=== PATIENT | female | born 1935 | race Caucasian/White ===

== ENCOUNTER → 2016-09-07 | Outpatient (CLI) | payer MEDICARE, MEDICAID ==
[~2016-09-07] MED LIST: ASPIRIN 325MG325 MG PO; DONEPEZIL 10MG10 MG PO; KEFLEX 500MG.500 MG PO; LEXAPRO 10 MG T10 MG PO; LISINOPRIL20 MG PO; NORCO 325 MG-51 TAB PO; NOVOLIN 70/30 710 ML SC; NOVOLIN 70/30 PE3 ML SC; PRAVACHOL10 MG PO
--- NOTE | 2016-09-07 15:07 | RADIOLOGY REPORT PS360 ---
PROCEDURE: 2-D M-mode and color Doppler study INDICATIONS FOR THE TEST: Chest pain COPD Heart Murmur Tobacco Smoking Palpitations Fatigue Syncope Edema+ Hypertension+Diabetes Mellitus+ Rheumatic Fever SOB+MILLER+Obesity Hyperlipidemia+ Family History HD Additional History CHF PATIENT INFORMATION HEIGHT: 61 WEIGHT: 160 GENDER: Female B/P: 164/84 2-D/M-MODE INTERPRETATION: 2-D MEASUREMENTS OBSERVED VALUES IN CMS Right Ventricular Dimension (RVDd) 2.0 Interventricular Septum (Thickness)(IVsd) 0.9 Left Ventricular Internal Dimensions(LVIDd) 4.6 Left Ventricular Posterior Wall (Thickness)(LVPWd) 0.8 Aortic Root 2.0 Aortic Cusp Separation 1.9 Left Atrial Dimensions (LAD) 3.4 2D 1. Left atrium is qualitatively moderately enlarged, left ventricle is normal size, there is no concentric left ventricular hypertrophy present, visually estimated ejection fraction 55% with no obvious regional wall motion abnormality. 2. The right atrium and right ventricle are mildly enlarged with normal contractility. 3. The aortic valve is minimally thickened and fibrosed consistent with mild aortic sclerosis. 4. The mitral valve has mitral annular calcification, there is no mitral stenosis. 5. The pulmonic valve is not well visualized. 6. No significant pericardial effusion noted. 7. The tricuspid valve restructure normal. DOPPLER INTERROGATION: Doppler interrogation of the aortic mitral and tricuspid valve reveals presence of mild mitral and tricuspid regurgitation, calculated right ventricular systolic pressure 40 mmHg consistent with mild pulmonary hypertension, grade 1 diastolic dysfunction seen with tissue Doppler evidence of raised left atrial pressure. CONCLUSION: 1. Biatrial enlargement, normal left ventricular size, visually estimated to fraction 55% no obvious regional wall motion abnormality, grade 1 diastolic dysfunction seen with tissue Doppler evidence of raised left atrial pressure. 2. Mild mitral and tricuspid regurgitation, calculated right ventricular systolic pressure 40 mmHg consistent with mild pulmonary hypertension. 3. No significant pericardial effusion noted.
== END ==
LOC: RT 13:30
DX: R60.9 Edema, unspecified (principal); I50.32 Chronic diastolic (congestive) heart failure; E11.9 Type 2 diabetes mellitus without complications; E78.5 Hyperlipidemia, unspecified

== ENCOUNTER → 2017-02-18 | Outpatient (CLI) | payer MEDICARE, MEDICAID ==
[~2017-02-18] MED LIST changes: +GABAPENTIN 100100 MG PO; +LASIX 20MG. TAB20 MG PO; +LASIX 40MG. TAB40 MG PO; +LOSARTAN POTASS50 MG PO; +SPIRONOLACTONE25 MG NG; +TESSALON PERLE100 M1 PO; +TYLENOL WITH CO1 TA1 PO; +ZITHROMAX Z-PA250 M2 PO
[2017-02-18 09:27] LABS: LYMPH # 2.5 K/mm3 (0.7-4.5); LYMPH % 28.7 % (10-50.0)
[2017-02-18 09:40] LABS: BUN 26 mg/dL (7-18)
[2017-02-18 09:42] LABS: GFR (ESTIMATED) 48 ML/MIN (59-)
--- NOTE | 2017-02-18 11:57 | RADIOLOGY REPORT PS360 ---
CHEST(2 VIEWS-NOT PORTABLE) HISTORY: Follow-up biopsy, lung mass POST CT CHEST BX ORDERING PHYSICIAN: Bret Andrade MD PATIENT AGE: 82 years COMPARISON: 01/15/2017 FINDINGS: Expiration PA and lateral views of the chest are obtained. No evidence of pneumothorax. Patient has known bilateral pulmonary nodules which are below limits of resolution on the radiograph. IMPRESSION: No evidence of pneumothorax status post lung biopsy
--- NOTE | 2017-02-18 16:56 | RADIOLOGY REPORT PS360 ---
CHEST(2 VIEWS-NOT PORTABLE) HISTORY: Follow-up lung biopsy POST LUNG BX ORDERING PHYSICIAN: Bret Andrade MD PATIENT AGE: 82 years COMPARISON: Same day FINDINGS: Expiration PA and lateral view of the chest show no evidence of pneumothorax. Vascular crowding is present in the lung bases. The heart size is unremarkable. IMPRESSION: No acute finding, no evidence of pneumothorax. Patient has known multiple pulmonary nodules which are below limits of resolution on this chest radiograph
--- NOTE | 2017-02-18 18:17 | RADIOLOGY REPORT PS360 ---
CT BIOPSY, CT CHEST W/O CONTRAST CLINICAL INDICATION: Lung masses LUNG BIOPSY ORDERING PHYSICIAN: Bret Andrade MD PATIENT AGE: 82 years COMPARISON: 01/28/[address] Prebiopsy chest CT patient is placed in the prone position and unenhanced chest CT performed. Multiple pulmonary nodules are once again noted. Specifically, the lesion in the left lung bases present at 3.2 x 1.8 cm. Patient was not able to consistently inspire and hold her breath. The lesion is persistently deep to the lateral rib. There was also bowel interposition and the spleen is immediately adjacent to the nodule. TECHNIQUE: Using standard aseptic technique, local anesthesia was obtained using buffered lidocaine. Multiple attempts were made to place the needle into the lesion. The difference in the patient's breathing and the fact the lesion was persistently behind the rib and adjacent to the colon and spleen made needle positioning very difficult. On the last attempt there was felt that the needle was in the periphery of the lesion. Fine-needle aspiration was obtained. No further attempts were made. Specimens given to cytology. No immediate complications. Post biopsy images show no evidence of pneumothorax or pneumoperitoneum. Immediate and delayed radiographs show no evidence of pneumothorax. Cytology: pending IMPRESSION: Uneventful fine needle aspiration of left lower lobe mass. Please see above for detail. Cytology is pending
== END ==
LOC: RAD 09:15 → EDSTATUS 09:45 → RAD 09:45
PROVIDERS: Family Medicine
PROC: 0B9L3ZX Drainage of Left Lung, Percutaneous Approach, Diagnostic (ICD-10-PCS; principal; 2017-02-18)
DX: D38.1 Neoplasm of uncertain behavior of trachea, bronchus and lung (principal); R91.8 Other nonspecific abnormal finding of lung field

== ENCOUNTER 2017-04-25 23:42 | Emergency (ER) | payer MEDICARE, MEDICAID ==
[~2017-04-25] VITALS: Ht 154.9 cm; Wt 69.9 kg
--- OUTSIDE RECORDS SUMMARY | 2017-04-26 00:35 | External Medical Summary Rpt | CCD ---
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 TYPE SIDE EQUIPME EQUIPME RAIL W/MATTRSS HOS BED E0260 ALEC ALEC SEMI-ELEC 6 HOME HOME W/ANY MEDICAL MEDICAL TYPE SIDE EQUIPME EQUIPME RAIL W/[place] [address] [place] [facility] HEAD/BRAI 6 MEDICAL N W/O IMAGING CONTRAST ASS MATERIAL RADIOLOGI 54695 [place] [facility] C 6 MEDICAL EXAMINATI IMAGING ON PELVIS ASS 1/2 VIEWS SIMPLE 20250 PATI THOMPSON REPAIR 6 PHYSICIAN NORA SCALP/NEC S, PLLC K/AX/BARRY T/TRUNK 2.5CM/< TDAP 51293 CHINO MAGANA VACCINE 7 6 [facility] YRS/> [place] [address] [place] [facility] CERVICAL 6 MEDICAL SPINE W/O IMAGING CONTRAST ASS MATERIAL IM ADM 63002 CHINO MAGANA PRQ ID 6 [facility] SUBQ/IM INC INC NJXS 1 VACCINE HOS BED E0260 ALEC ALEC SEMI-ELEC 6 HOME HOME W/ANY MEDICAL MEDICAL TYPE SIDE EQUIPME EQUIPME RAIL W/MATTRSS BLD GLU A4253 [facility] TEST/REAG 6 [facility] STATES T [facility] BLD SUPPLY SUPPLY GLU MON-50 LANCETS A4259 [place] PER BOX 6 [place] [address] MEDICAL MEDICAL SUPPLY SUPPLY NORMAL A4256 [facility] AND 6 [facility] HIGH MEDICAL MEDICAL CALIBRATO SUPPLY SUPPLY R SOLUTION/ [facility] E0260 ALEC ALEC SEMI-ELEC 6 HOME HOME W/ANY MEDICAL MEDICAL TYPE SIDE EQUIPME EQUIPME RAIL W/MATTRSS HOS BED E0260 ALEC ALEC SEMI-ELEC 6 HOME HOME W/ANY MEDICAL MEDICAL TYPE SIDE EQUIPME EQUIPME RAIL W/MATTRSS LOWER G8404 [facility] EXTREMITY 6 FERMIN AAR NEUROLOGI JOE EXAM PERFORMED &DOC FOOTWEAR G8410 [facility] EVALUATIO 6 FERMIN RAMU N PERFORMED AND DOCUMENTE D BMI DOC G8420 [facility] W/I 6 FERMIN RAMU NORMAL KALEB & NO F/U PLAN REQUIRED PNEUMOCOC 4040F [facility] JOE 6 FERMIN RAMU VACCINE ADMIN RCVD PRIOR DEBRIDEME 95223 [facility] NT NAIL 6 FERMIN RAMU ANY METHOD 6/> MOST 3044F [facility] RECENT 6 FERMIN RAMU HEMOGLOBI N A1C LEVEL < 7.0% CURRENT 1036F [facility] TOBACCO 6 FERMIN RAMU NON-USER CAD CAP COPD PV DM ELIG CLIN G8427 [facility] ATTSTS 6 FERMIN RAMU DOC M REC OBTD UPD/REV PT MEDS INFLUENZA G8482 [facility] 6 FERMIN RAMU IMMUNIZAT ION ADMIN/PRE VIOUSLY RECEIVED HOS BED E0260 ALEC MICHAEL SEMI-ELEC 6 HOME HOME W/ANY MEDICAL MEDICAL TYPE SIDE EQUIPME EQUIPME RAIL W/MATTRSS BLD GLU A4253 UNITED UNITED TEST/REAG 6 STATES STATES T [facility] BLD SUPPLY SUPPLY GLU MON-50 LANCETS A4259 UNITED UNITED PER BOX 6 STATES STATES OF Formerly named [facility] MEDICAL MEDICAL SUPPLY SUPPLY HOME E0607 UNITED UNITED BLOOD 6 STATES STATES GLUCOSE MEDICAL MEDICAL MONITOR SUPPLY SUPPLY HOS BED E0260 ALEC MICHAEL SEMI-ELEC 6 HOME HOME W/ANY MEDICAL MEDICAL TYPE SIDE EQUIPME EQUIPME RAIL W/MATTRSS HOS BED E0260 ALEC MICHAEL SEMI-ELEC 6 HOME HOME W/ANY MEDICAL MEDICAL TYPE SIDE EQUIPME EQUIPME RAIL W/MATTRSS HEMOGLOBI 81653 A C TASHA ELPIDIO N 6 MARTIN VIEYRA GLYCOSYLA PSC COLIN A1C RADIOLOGI 94218 [facility] [place] [facility]UMTA[facility] C 6 RADIOLOGY RHO EXAMINATI ON TIBIA & FIBULA 2 VIEWS RADIOLOGI 06469 [facility] [place] MUMTAZ C 6 RADIOLOGY RHO EXAMINATI ON FEMUR MINIMUM 2 VIEWS TRANS R0075 SYMPHONY SYMPHONY PRTBL 6 MOBILEX MOBILEX XRAY EQP&PERS DK/NRS DK-TRIP> 1 PT RADIOLOGI 18478 SYMPHONY SYMPHONY C 6 MOBILEX MOBILEX EXAMINATI ON KNEE 1/2 VIEWS SET-UP Q0092 SYMPHONY SYMPHONY PORTABLE 6 MOBILEX MOBILEX X-RAY EQUIPMENT SBSQ 53591 [facility] CARE/DAY MEDI NEW PROBLEM 25 MIN TRANS R0070 SYMPHONY SYMPHONY PRTBL 6 MOBILEX MOBILEX X-RAY EQP&PERS DK/NRS DK-TRIP 1 PT RADEX HIP 21515 SYMPHONY SYMPHONY 6 MOBILEX MOBILEX UNILATERA L WITH PELVIS 2-3 VIEWS SET-UP Q0092 SYMPHONY SYMPHONY PORTABLE 6 MOBILEX MOBILEX X-RAY EQUIPMENT BLD GLU A4253 UNITED UNITED TEST/REAG 6 STATES STATES T [facility] BLD SUPPLY SUPPLY GLU MON-50 LANCETS A4259 UNITED UNITED PER BOX 6 STATES STATES OF 100 MEDICAL MEDICAL SUPPLY SUPPLY NORMAL A4256 UNITED UNITED LOW AND 6 STATES STATES HIGH MEDICAL MEDICAL CALIBRATO SUPPLY SUPPLY R SOLUTION/ [facility] BASIC 22471 COMBINED COMBINED METABOLIC 6 PHYSICIAN PHYSICIAN PANEL S LA S LA CALCIUM TOTAL COLLECTIO 68534 COMBINED COMBINED N VENOUS 6 PHYSICIAN PHYSICIAN BLOOD S LA S LA VENIPUNCT URE TRAVEL [address] MED 6 PHYSICIAN PHYSICIAN NEC LAB S LA S LA SPEC; PRORAT ACTL MILE RADIOLOGI 56757 SYMPHONY SYMPHONY C EXAM 6 MOBILEX MOBILEX CHEST 2 VIEWS FRONTAL&L ATERAL TRANS R0070 SYMPHONY SYMPHONY PRTBL 6 MOBILEX MOBILEX X-RAY EQP&PERS DK/NRS DK-TRIP 1 PT SET-UP Q0092 SYMPHONY SYMPHONY PORTABLE 6 MOBILEX MOBILEX X-RAY EQUIPMENT COLLECTIO 19156 COMBINED COMBINED N VENOUS 6 PHYSICIAN PHYSICIAN BLOOD S LA S LA VENIPUNCT URE BASIC 93892 COMBINED COMBINED METABOLIC 6 PHYSICIAN PHYSICIAN PANEL S LA S LA CALCIUM TOTAL BLOOD 75291 COMBINED COMBINED COUNT 6 PHYSICIAN PHYSICIAN COMPLETE S LA S LA AUTO&AUTO DIFRNTL WBC TRAVEL [address] MED 6 PHYSICIAN PHYSICIAN NEC LAB S LA S LA SPEC; PRORAT ACTL MILE RADEX 26286 SYMPHONY SYMPHONY HAND 2 6 MOBILEX MOBILEX VIEWS TRANS R0070 SYMPHONY SYMPHONY PRTBL 6 MOBILEX MOBILEX X-RAY EQP&PERS DK/NRS DK-TRIP 1 PT SET-UP Q0092 SYMPHONY SYMPHONY PORTABLE 6 MOBILEX MOBILEX X-RAY EQUIPMENT [facility] 39539 A Antonio TASHA [facility] DISCHARGE 6 MARTIN ND DAY [facility] MANAGEMEN T 30 MIN/< AMBULANCE A0428 [facility] SERVICE 6 AMBULANCE AMBULANCE BLS SERVICE SERVICE [facility] TRANSP[facility]OUND A0425 [facility]UL[facility] PER SERVICE SERVICE STATUTE MILE SBS 26597 A Antonio [facility] 6 MARTIN VIEYRA CARE/DAY PSC 15 MINUTES SBSQ 18242 A [facility] 6 MARTIN VIEYRA CARE/[place] P[place] [address] [place] [address] [facility] CERVICAL 6 MEDICAL LEMUEL SPINE W/O IMAGING CONTRAST ASS MATERIAL INITIAL 06716 A [facility] 6 MARTIN VIEYRA CARE/DAY [facility] 70 MINUTES OPTX FEM 18652 [facility] PETTEY FX PROX 6 PHYSICIAN JAM END NCK S GROUP INT FIXJ/[place] [address] [place] [facility] HEAD/BRAI 6 MEDICAL LEMUEL N W/O IMAGING CONTRAST ASS MATERIAL RADIOLOGI 50[address] [place] [facility] C 6 MEDICAL LEMUEL EXAMINATI IMAGING ON CHEST ASS SINGLE VIEW FRONTAL RADEX HIP 41254 [place] ALL 6 MEDICAL UNILATERA IMAGING L WITH ASS PELVIS 1 VIEW AMBULANCE A0429 [facility] SERVICE 6 AMBULANCE AMBULANCE BLS SERVICE SERVICE EMERGENCY TRANSPORT ANESTHESI 47933 COMMUNITY KYRA A OPEN 6 ANESTH SHE PROCEDURE OF THE S UPPER BLUE 2/3 FEMUR NOS GROUND A0425 [facility] MILEAGE 6 AMBULANCE AMBULANCE PER SERVICE SERVICE STATUTE MILE LIPID 40370 A Antonio ANDRADE ELPIDIO PANEL 6 MARTIN VIEYRA PSC HEMOGLOBI 25484 A Antonio ANDRADE ELPIDIO N 6 MARTIN VIEYRA GLYCOSYLA PSC COLIN A1C COLLECTIO 51124 A Antonio MAGALLANES N VENOUS 6 MARTIN VIEYRA BLOOD PSC VENIPUNCT URE COMPREHEN 64484 [facility]ST SIVE 6 DIAGNOSTI DIAGNOSTI METABOLIC CS CS PANEL INCORPORA INCORPORA T T LANCETS A4259 UNITED UNITED PER BOX 5 STATES STATES MEDICAL MEDICAL SUPPLY SUPPLY NORMAL A4256 [facility] AND [address] [place] [address] HIGH MEDICAL MEDICAL CALIBRATO SUPPLY SUPPLY R SOLUTION/ [facility]IPS REPL BEV A[address] UNITED [address] MED NECES MEDICAL MEDICAL DK BG SUPPLY SUPPLY MON OWN PT EA BLD GLU A4253 UNITED UNITED TEST/REAG [address] [place] [address] T [facility] BLD SUPPLY SUPPLY GLU MON-50 SPRING-PO A4[address] DEVICE MEDICAL MEDICAL FOR SUPPLY SUPPLY LANCET EACH HEMOGLOBI 42424 A Antonio ANDRADE ELPIDIO N 5 MARTIN VIEYRA GLYCOSYLA PSC COLIN A1C GLUCOSE 99451 A Antonio ANDRADE ELPIDIO QUANTITAT 5 MARTIN VIEYRA BAIRON BLOOD PSC XCPT REAGENT STRIP BLD GLU A4253 UNITED UNITED TEST/REAG [address] [place] [address] T [facility] BLD SUPPLY SUPPLY GLU MON-50 LANCETS A4259 UNITED UNITED PER BOX 5 STATES STATES OF Formerly named [facility] MEDICAL MEDICAL SUPPLY SUPPLY LANCETS A4259 UNITED UNITED PER BOX 5 STATES STATES OF MEDICAL MEDICAL SUPPLY SUPPLY NORMAL A4256 [facility] AND [address] [place] [address] HIGH MEDICAL MEDICAL CALIBRATO SUPPLY SUPPLY R SOLUTION/ [facility]IPS BLD GLU A4253 UNITED UNITED TEST/REAG [address] [place] [address] T [facility] BLD SUPPLY SUPPLY GLU MON-50 SPRING-PO A4258 UNITED UNITED WERED 5 [facility] DEVICE MEDICAL MEDICAL FOR SUPPLY SUPPLY LANCET EACH REPL BEV A4235 UNITED UNITED LITHIUM 5 [facility] STATES MED NECES MEDICAL MEDICAL DK BG SUPPLY SUPPLY MON OWN PT EA IAADIADOO 91193 A C FIELD AMB 4 MARTIN VIEYRA INFLUENZA PSC LANCETS A4259 UNITED UNITED PER BOX 4 [place] [address] MEDICAL MEDICAL SUPPLY SUPPLY BLD GLU A4253 UNITED UNITED TEST/REAG 4 [facility] T [facility] HOME BLD SUPPLY SUPPLY GLU MON-50 BLD GLU A4253 UNITED UNITED TEST/REAG 4 [facility] T [facility] MEDICAL HOME BLD SUPPLY SUPPLY GLU MON-50 LANCETS A4259 UNITED UNITED PER BOX 4 [place] [address] MEDICAL MEDICAL SUPPLY SUPPLY NORMAL A4256 [facility] AND 4 [facility] MEDICAL MEDICAL CALIBRATO SUPPLY SUPPLY R SOLUTION/ [facility]IPS NORMAL A4256 [facility] AND 4 [facility] HIGH MEDICAL MEDICAL CALIBRATO SUPPLY SUPPLY R SOLUTION/ [facility]IPS LANCETS A4259 UNITED UNITED PER BOX 4 [place] [address] MEDICAL MEDICAL SUPPLY SUPPLY BLD GLU A4253 UNITED UNITED TEST/REAG 4 [facility] T [facility]ICAL HOME BLD SUPPLY SUPPLY GLU MON-50 PO A4258 UNITED UNITED WERED 4 [facility] DEVICE MEDICAL MEDICAL FOR SUPPLY SUPPLY LANCET EACH REPL BEV A4235 UNITED UNITED LITHIUM 4 [facility] MED NECES MEDICAL MEDICAL DK BG SUPPLY SUPPLY MON OWN PT EA BLD GLU A4253 UNITED UNITED TEST/REAG 4 [facility] T [facility]ICAL HOME BLD SUPPLY SUPPLY GLU MON-50 LANCETS A4259 UNITED UNITED PER BOX 4 [place] [address] MEDICAL MEDICAL SUPPLY SUPPLY NORMAL A4256 [facility] 4 [facility] HIGH MEDICAL MEDICAL CALIBRATO SUPPLY SUPPLY R SOLUTION/ CHIPS PHYSICAL 23946 CHINO MAGANA THERAPY 4 [facility] EVALUATIO INC INC N THERAPEUT 58084 CHINO MAGANA IC PX 1/> 4 [facility] AREAS INC INC EACH 15 MIN EXERCISES RADEX 23477 [facility] [place] [place]EL WRIST 4 MEDICAL JOYCELYN COMPLETE IMAGING MINIMUM 3 ASS VIEWS RADEX 46155 [place] MICHAEL WRIST 3 MEDICAL JOYCELYN COMPLETE IMAGING MINIMUM 3 ASS VIEWS APPLICATI 42683 [facility] PETTE[facility] ON CAST 3 PHYSICIAN JAM ELBOW S GROUP FINGER SHORT ARM CAST Q4010 [facility] SUPPLIES 3 PHYSICIAN JAM SHORT ARM S GROUP CAST ADULT FIBERGLAS S RADEX 30499 CHINO GALEON WRIST 3 [facility] COMPLETE INC INC MINIMUM 3 VIEWS RADEX 29808 [place] MICHAEL WRIST 2 3 MEDICAL JOYCELYN VIEWS IMAGING ASS LANCETS A4259 UNITED UNITED PER BOX 3 [place] OF Formerly named [facility] MEDICAL MEDICAL SUPPLY SUPPLY NORMAL A4256 [facility] AND 3 [facility] HIGH MEDICAL MEDICAL CALIBRATO SUPPLY SUPPLY R SOLUTION/ [facility]IPS BLD GLU A4253 UNITED UNITED TEST/REAG 3 [facility] T [facility]IPS MEDICAL MEDICAL HOME BLD SUPPLY SUPPLY GLU SPRING-PO A4258 UNITED [facility] 3 [facility] MEDICAL MEDICAL FOR SUPPLY SUPPLY LANCET EACH CLTX DSTL 71664 [facility] RADIAL 3 PHYSICIAN JAM FX/EPIPHY S GROUP SL SEP W/O MANJ CAST Q4010 [facility] PET[facility] SUPPLIES 3 PHYSICIAN JAM SHORT ARM S GROUP CAST ADULT FIBERGLAS S RADEX 52205 CHINO MAGANA WRIST 3 [facility] COMPLETE INC INC MINIMUM 3 VIEWS RADEX 08089 [facility] [place] [place] MICHAEL HAND 2 3 MEDICAL JOYCELYN VIEWS IMAGING ASS RADEX 09326 [facility] HAND 3 [facility] MINIMUM 3 INC INC VIEWS RADEX 73299 CHINO GALEON ELBOW 3 [facility] COMPLETE INC INC MINIMUM 3 VIEWS APPLICATI 67079 [facility] [place] [facility] SHORT 3 EMERGENCY BRO ARM SERVICES SPLINT FOREARM-H AND STATIC LANCETS A4259 UNITED UNITED PER BOX 3 [place] OF Formerly named [facility] MEDICAL MEDICAL SUPPLY SUPPLY NORMAL A4256 [facility] HIGH MEDICAL MEDICAL CALIBRATO SUPPLY SUPPLY R SOLUTION/ [facility]IPS BLD GLU A4253 UNITED UNITED TEST/REAG 3 [facility] STATES T [facility]IPS MEDICAL MEDICAL HOME BLD SUPPLY SUPPLY GLU MON-50 INCONTINE T4541 NURSES NURSES NCE 3 REGISTRY REGISTRY PRODUCT & HOME HE & HOME HE DISPOSABL E UNDPAD LARGE EA ADLT SZD T4527 NURSES NURSES DISPBL 3 REGISTRY REGISTRY INCONT & HOME HE & HOME HE PROD UNDWEAR/P ULLON LG EA DISPBL T4535 NURSES NURSES LINER/SAKINA 3 REGISTRY REGISTRY ELD/GUARD & HOME HE & HOME HE /PAD/UNDG RMNT INCONT EA INCONTINE T4541 NURSES NURSES NCE 3 REGISTRY REGISTRY PRODUCT & HOME HE & [place] [address] [facility] HEAD/BRAI 3 MEDICAL MEDICAL N W/O IMAGING IMAGING CONTRAST ASS ASS MATERIAL BLD GLU A4253 [facility] TEST/REAG 3 MEDICAL MEDICAL T STRIPS SUPPLIES SUPPLIES HOME BLD GLU LANCETS A4259 [facility] PER BOX 3 MEDICAL MEDICAL OF 100 SUPPLIES SUPPLIES DISPBL T4535 NURSES NURSES LINER/SAKINA 3 REGISTRY REGISTRY ELD/GUARD & HOME HE & HOME HE /PAD/UNDG RMNT INCONT EA INCONTINE T4541 NURSES NURSES NCE 3 REGISTRY REGISTRY PRODUCT & HOME HE & HOME HE DISPOSABL E UNDPAD LARGE EA ADLT SZD T4527 NURSES NURSES DISPBL 3 REGISTRY REGISTRY INCONT & HOME HE & HOME HE PROD UNDWEAR/P ULLON LG EA RADEX 04970 CHINO MAGANA HAND 3 [facility] MINIMUM 3 INC INC VIEWS DISPBL T4535 NURSES NURSES LINER/SAKINA 3 REGISTRY REGISTRY ELD/GUARD & HOME HE & HOME HE /PAD/UNDG RMNT INCONT EA ADLT SZD T4527 NURSES NURSES DISPBL 3 REGISTRY REGISTRY INCONT & HOME HE & HOME HE PROD UNDWEAR/P ULLON LG EA INCONTINE T4541 NURSES NURSES NCE 3 REGISTRY REGISTRY PRODUCT & HOME HE & HOME HE DISPOSABL E UNDPAD LARGE EA LANCETS A4259 US US PER BOX 3 [facility] OF 100 E SUPPLY E SUPPLY [employer] [facility] BLD GLU A4253 US US TEST/REAG 3 [facility] T STRIPS E SUPPLY E SUPPLY HOME [employer] GLU MON-50 DISPBL T4535 NURSES NURSES LINER/SAKINA 3 REGISTRY REGISTRY ELD/GUARD & HOME HE & HOME HE /PAD/UNDG RMNT INCONT EA INCONTINE T4541 NURSES NURSES NCE 3 REGISTRY REGISTRY PRODUCT & HOME HE & HOME HE DISPOSABL E UNDPAD LARGE EA ADLT SZD T4527 NURSES NURSES DISPBL 3 REGISTRY REGISTRY INCONT & HOME HE & HOME HE PROD UNDWEAR/P ULLON LG EA ADLT SZD T4527 NURSES NURSES DISPBL 3 REGISTRY REGISTRY INCONT & HOME HE & HOME HE PROD UNDWEAR/P ULLON LG EA INCONTINE T4541 NURSES NURSES NCE 3 REGISTRY REGISTRY PRODUCT & HOME HE & HOME HE DISPOSABL E UNDPAD LARGE EA DISPBL T4535 NURSES NURSES LINER/SAKINA 3 REGISTRY REGISTRY ELD/GUARD & HOME HE & HOME HE /PAD/UNDG RMNT INCONT EA RADEX 63649 [place] HAND 3 MEDICAL JOYCELYN MINIMUM 3 IMAGING VIEWS ASS RADEX 60195 [place] ELBOW 2 3 MEDICAL JOYCELYN VIEWS IMAGING ASS RADEX 16843 [place] HAND 3 MEDICAL JOYCELYN MINIMUM 3 IMAGING VIEWS ASS APPLICATI 35569 CHINO MAGANA ON SHORT 3 [facility] ARM INC INC SPLINT FOREARM-H AND STATIC LANCETS A4259 UNITED UNITED PER BOX 3 STATES STATES OF 100 MEDICAL MEDICAL SUPPLY SUPPLY NORMAL A4256 [facility] LOW AND 3 STATES STATES HIGH MEDICAL MEDICAL CALIBRATO SUPPLY SUPPLY R SOLUTION/ CHIPS FAIRCHILD- A4258 UNITED UNITED WERED 3 STATES STATES DEVICE MEDICAL MEDICAL FOR SUPPLY SUPPLY LANCET EACH BLD GLU A4253 [facility] TEST/REAG 3 STATES STATES T [facility]IPS MEDICAL MEDICAL HOME BLD SUPPLY SUPPLY GLU MON-50 REPL BEV A4233 [facility] 3 [facility] STATES NOT J MEDICAL MEDICAL CELL DK SUPPLY SUPPLY BG MON OWND PT DISPBL T4535 NURSES NURSES LINER/SAKINA 3 REGISTRY REGISTRY ELD/GUARD & HOME HE & HOME HE /PAD/UNDG RMNT INCONT EA NON-INVAS 67705 EDGAR RODRIGUEZ BAIRON 3 MEDICAL JOYCELYN PHYSIOLOG IMAGING IC STUDY ASS EXTREMITY 3 LEVLS DISPBL T4535 NURSES NURSES LINER/SAKINA 3 REGISTRY REGISTRY ELD/GUARD & HOME HE & HOME HE /PAD/UNDG RMNT INCONT EA LANCETS A4259 [facility] PER BOX 3 MEDICAL MEDICAL OF 100 SUPPLIES SUPPLIES ADLT SZD T4527 NURSES NURSES DISPBL 3 REGISTRY REGISTRY INCONT & HOME HE & HOME HE PROD UNDWEAR/P ULLON LG EA BLD GLU A4253 [facility] TEST/REAG 3 MEDICAL MEDICAL T STRIPS SUPPLIES SUPPLIES HOME BLD GLU MON-50 INCONTINE T4541 NURSES NURSES NCE 3 REGISTRY REGISTRY PRODUCT & HOME HE & HOME HE DISPOSABL E UNDPAD LARGE EA BASIC 62347 [facility] METABOLIC 3 DIAGNOSTI DIAGNOSTI PANEL CS CS CALCIUM TOTAL BLD GLU A4253 US US TEST/REAG 3 [facility] T STRIPS E SUPPLY E SUPPLY HOME [employer] LLC GLU MON-50 LANCETS A4259 US US PER BOX 3 [facility] OF 100 E SUPPLY E SUPPLY LLC LLC NORMAL A4256 US US LOW AND 3 [facility] HIGH E SUPPLY E SUPPLY CALIBRATO LLC LLC R SOLUTION/ CHIPS DISPBL T4535 NURSES NURSES LINER/SAKINA 3 REGISTRY REGISTRY ELD/GUARD & HOME HE & HOME HE /PAD/UNDG RMNT INCONT EA INCONTINE T4541 NURSES NURSES NCE 3 REGISTRY REGISTRY PRODUCT & HOME HE & HOME HE DISPOSABL E UNDPAD LARGE EA HIGH K0004 ALEC ESPINOSARELL STRENGTH 3 HOME HOME [employer] [facility] [facility] HT EQUIPME EQUIPME WHEELCHAI R ADLT SZD T4527 NURSES NURSES DISPBL 3 REGISTRY REGISTRY INCONT & HOME HE & HOME HE PROD UNDWEAR/P ULLON LG EA ADLT SZD T4527 NURSES NURSES DISPBL 3 REGISTRY REGISTRY INCONT & HOME HE & HOME HE PROD UNDWEAR/P ULLON LG EA INCONTINE T4541 NURSES NURSES NCE 3 REGISTRY REGISTRY PRODUCT & HOME HE & HOME HE DISPOSABL E UNDPAD LARGE EA BLD GLU A4253 GLOBAL GLOBAL TEST/REAG 3 MEDICAL MEDICAL T STRIPS DIRECT DIRECT HOME BLD GLU MON-50 NORMAL A4256 GLOBAL GLOBAL LOW AND 3 MEDICAL MEDICAL HIGH DIRECT DIRECT CALIBRATO R SOLUTION/ CHIPS LANCETS A4259 GLOBAL GLOBAL PER BOX 3 MEDICAL MEDICAL OF 100 DIRECT DIRECT INCONTINE T4541 NURSES NURSES NCE 3 REGISTRY REGISTRY PRODUCT & HOME HE & HOME HE DISPOSABL E UNDPAD LARGE EA ADLT SZD T4527 NURSES NURSES DISPBL 3 REGISTRY REGISTRY INCONT & HOME HE & HOME HE PROD UNDWEAR/P ULLON LG EA HIGH K0004 ALEC ALEC STRENGTH 3 HOME HOME [facility] EQUIPME EQUIPME WHEELCHAI R BLD GLU A4253 [place] TEST/REAG 3 STATES STATES T STRIPS MEDICAL MEDICAL HOME BLD SUPPLY SUPPLY GLU MON-50 LANCETS A4259 [place] PER BOX 3 STATES [place] 100 MEDICAL MEDICAL SUPPLY SUPPLY NORMAL A4256 [place] LOW AND 3 [place] STATES HIGH MEDICAL MEDICAL CALIBRATO SUPPLY SUPPLY R SOLUTION/ CHIPS HIGH K0004 ALEC ALEC STRENGTH 2 HOME HOME [facility] EQUIPME EQUIPME WHEELCHAI R SPRING-PO A4258 [place] WERED 2 [facility] DEVICE E SUPPLY E SUPPLY FOR LLC LLC LANCET EACH BLD GLU A4253 [place] US TEST/REAG 2 HEALTHCAR HEALTHCAR T STRIPS E SUPPLY E SUPPLY HOME BLD LLC LLC GLU MON-50 NORMAL A4256 [place] US LOW AND 2 HEALTHCAR HEALTHCAR HIGH E SUPPLY E SUPPLY CALIBRATO LLC LLC R SOLUTION/ CHIPS LANCETS A4259 [place] US PER BOX 2 [facility] HEALTHCAR OF 100 E SUPPLY E SUPPLY LLC LLC LANCETS A4259 [facility] PER BOX 2 MEDICAL MEDICAL OF 100 SUPPLIES SUPPLIES BLD GLU A4253 [facility] TEST/REAG 2 MEDICAL MEDICAL T STRIPS SUPPLIES SUPPLIES HOME BLD GLU WED-50 HIGH K0004 ALEC ALEC STRENGTH 2 HOME HOME [facility] HT EQUIPME EQUIPME WHEELCHAI R [facility] A4258 ARRIVA ARRIVA WERED 2 MEDICAL AUDIT CLERK FOR LANCET EACH LANCETS A4259 ARRIVA ARRIVA PER BOX 2 MEDICAL MEDICAL OF 100 NORMAL A4256 ARRIVA ARRIVA LOW AND 2 MEDICAL MEDICAL HIGH CALIBRATO R SOLUTION/ CHIPS BLD GLU A4253 ARRIVA ARRIVA TEST/REAG 2 MEDICAL MEDICAL T STRIPS HOME BLD GLU REPL BEV A4233 ARRIVA ARRIVA [place] 2 MEDICAL MEDICAL NOT J CELL DK BG MON OWND PT DISPBL T4535 NURSES NURSES LINER/SAKINA 2 REGISTRY REGISTRY ELD/GUARD & HOME HE & HOME HE /PAD/UNDG RMNT INCONT EA ADLT SZD T4527 NURSES NURSES DISPBL 2 REGISTRY REGISTRY INCONT & HOME HE & HOME HE PROD UNDWEAR/P ULLON LG EA BLD GLU A4253 GLOBAL GLOBAL TEST/REAG 2 MEDICAL MEDICAL T STRIPS DIRECT DIRECT HOME BLD GLU 50 LANCETS A4259 GLOBAL GLOBAL PER BOX 2 MEDICAL MEDICAL OF 100 DIRECT DIRECT HIGH K0004 ALEC ALEC STRENGTH 2 HOME HOME [facility] HT EQUIPME EQUIPME WHEELCHAI R ADLT SZD T4527 NURSES NURSES DISPBL 2 REGISTRY REGISTRY INCONT & HOME HE & HOME HE PROD UNDWEAR/P ULLON LG EA DISPBL T4535 NURSES NURSES LINER/SAKINA 2 REGISTRY REGISTRY ELD/GUARD & HOME HE & HOME HE /PAD/UNDG RMNT INCONT EA DISPBL T4535 NURSES NURSES LINER/SAKINA 2 REGISTRY REGISTRY ELD/GUARD & HOME HE & HOME HE /PAD/UNDG RMNT INCONT EA ADLT SZD T4527 NURSES NURSES DISPBL 2 REGISTRY REGISTRY INCONT & HOME HE & HOME HE PROD UNDWEAR/P ULLON LG EA REPL BEV A4235 [place] [facility] NECES MEDICAL MEDICAL DK BG SUPPLY SUPPLY MON OWN PT EA PO A4258 [facility] STATES DEVICE MEDICAL MEDICAL FOR SUPPLY SUPPLY LANCET EACH LANCETS A4259 [place] PER BOX 2 [place] STATES OF Formerly named [facility] MEDICAL MEDICAL SUPPLY SUPPLY NORMAL A4256 [place] LOW AND 2 [facility] HIGH MEDICAL MEDICAL CALIBRATO SUPPLY SUPPLY R SOLUTION/ CHIPS BLD GLU A4253 [facility] TEST/REAG 2 [facility] STATES T STRIPS MEDICAL MEDICAL HOME BLD SUPPLY SUPPLY GLU MON-50 HIGH K0004 ALEC ALEC STRENGTH 2 HOME HOME [facility] EQUIPME EQUIPME WHEELCHAI R ADLT SZD T4527 NURSES NURSES DISPBL 2 REGISTRY REGISTRY INCONT & HOME HE & HOME HE PROD UNDWEAR/P ULLON LG DISPBL T4535 NURSES NURSES LINER/SAKINA 2 REGISTRY REGISTRY ELD/GUARD & HOME HE & HOME HE /PAD/UNDG RMNT INCONT EA DISPBL T4535 NURSES NURSES LINER/SAKINA 2 REGISTRY REGISTRY ELD/GUARD & HOME HE & HOME HE /PAD/UNDG RMNT INCONT EA ADLT SZD T4527 NURSES NURSES DISPBL 2 REGISTRY REGISTRY INCONT & HOME HE & HOME HE PROD UNDWEAR/P ULLON LG [facility] K0004 ALEC ALEC STRENGTH 2 HOME HOME [facility] EQUIPME EQUIPME WHEELCHAI R BLD GLU A4253 ARRIVA ARRIVA TEST/REAG 2 MEDICAL MEDICAL T STRIPS HOME BLD GLU MON-50 NORMAL A4256 ARRIVA ARRIVA LOW AND 2 MEDICAL MEDICAL HIGH CALIBRATO R SOLUTION/ CHIPS LANCETS A4259 ARRIVA ARRIVA PER BOX 2 MEDICAL MEDICAL OF 100 LANCETS A4259 GLOBAL GLOBAL PER BOX 2 MEDICAL MEDICAL OF 100 DIRECT DIRECT BLD GLU A4253 GLOBAL GLOBAL TEST/REAG 2 MEDICAL MEDICAL T STRIPS DIRECT DIRECT HOME BLD GLU MON-50 REPL BEV A4233 GLOBAL GLOBAL ALKALINE 2 MEDICAL MEDICAL NOT J DIRECT DIRECT CELL DK BG MON OWND PT ADLT SZD T4527 NURSES NURSES DISPBL 2 REGISTRY REGISTRY INCONT & HOME HE & HOME HE PROD UNDWEAR/P ULLON LG EA DISPBL T4535 NURSES NURSES LINER/SAKINA 2 REGISTRY REGISTRY ELD/GUARD & HOME HE & HOME HE /PAD/UNDG RMNT INCONT EA DISPBL T4535 NURSES NURSES LINER/SAKINA 2 REGISTRY REGISTRY ELD/GUARD & HOME HE & HOME HE /PAD/UNDG RMNT INCONT EA ADLT SZD T4527 NURSES NURSES DISPBL 2 REGISTRY REGISTRY INCONT & HOME HE & HOME HE PROD UNDWEAR/P ULLON LG [facility] K0004 ALEC ALEC STRENGTH 2 HOME HOME [facility] EQUIPME EQUIPME WHEELCHAI R ADLT D T4527 NURSES NURSES DISPBL 2 REGISTRY REGISTRY INCONT & HOME HE & HOME HE PROD UNDWEAR/P ULLON LG EA DISPBL T4535 NURSES NURSES LINER/SAKINA 2 REGISTRY REGISTRY ELD/GUARD & HOME HE & HOME HE /PAD/UNDG RMNT INCONT EA DISPBL T4535 NURSES NURSES LINER/SAKINA 2 REGISTRY REGISTRY ELD/GUARD & HOME HE & HOME HE /PAD/UNDG RMNT INCONT EA ADLT [facility] T4527 NURSES NURSES DISPBL 2 REGISTRY REGISTRY INCONT & HOME HE & HOME HE PROD UNDWEAR/P ULLON [facility] A4259 [place] PER BOX 2 [place] OF Formerly named [facility] MEDICAL MEDICAL SUPPLY SUPPLY NORMAL A4256 [place] LOW AND 2 STATES STATES HIGH MEDICAL MEDICAL CALIBRATO SUPPLY SUPPLY R SOLUTION/ CHIPS BLD GLU A4253 UNITED [place] TEST/REAG 2 STATES STATES T STRIPS MEDICAL MEDICAL HOME BLD SUPPLY SUPPLY GLU MON-50 HIGH K0004 ALEC ALEC STRENGTH 2 HOME HOME [facility] EQUIPME EQUIPME WHEELCHAI R ADLT SZD T4527 NURSES NURSES DISPBL 2 REGISTRY REGISTRY INCONT & HOME HE & HOME HE PROD UNDWEAR/P ULLON LG EA DISPBL T4535 NURSES NURSES LINER/SAKINA 2 REGISTRY REGISTRY ELD/GUARD & HOME HE & HOME HE /PAD/UNDG RMNT INCONT EA COLLECTIO 01515 A Antonio MAGALLANES N VENOUS 2 MARTIN VIEYRA BLOOD PSC VENIPUNCT URE LIPID 95923 A Antonio ANDRADE ELPIDIO PANEL 2 MARTIN VIEYRA PSC BASIC [address]12 [facility] METABOLIC 2 DIAGNOSTI DIAGNOSTI PANEL CS CS CALCIUM TOTAL GLUCOSE 15476 A Antonio MAGALLANES QUANTITAT 2 MARTIN VIEYRA BAIRON BLOOD [facility] XCPT REAGENT STRIP HEMOGLOBI 82033 A Antonio MAGALLANES N 2 MARTIN VIEYRA GLYCOSYLA PSC COLIN A1C HIGH K0004 ALEC ALEC STRENGTH 2 HOME HOME [facility] HT EQUIPME EQUIPME WHEELCHAI R ADLT SZ T4527 NURSES NURSES DISPBL 2 REGISTRY REGISTRY INCONT & HOME HE & HOME HE PROD UNDWEAR/P ULLON LG EA SPRING- A4258 ARRIVA ARRIVA WERED 2 MEDICAL AUDIT CLERK FOR LANCET EACH REPL BEV A4233 ARRIVA ARRIVA ALKALINE 2 MEDICAL MEDICAL NOT J CELL DK BG MON OWND PT BLD GLU A4253 ARRIVA ARRIVA TEST/REAG 2 MEDICAL MEDICAL T STRIPS HOME BLD GLU MON-50 LANCETS A4259 ARRIVA ARRIVA PER BOX 2 MEDICAL MEDICAL OF 100 NORMAL A4256 ARRIVA ARRIVA LOW AND 2 MEDICAL MEDICAL HIGH CALIBRATO R SOLUTION/ CHIPS DISPBL T4535 NURSES NURSES LINER/SAKINA 2 REGISTRY REGISTRY ELD/GUARD & HOME HE & HOME HE /PAD/UNDG RMNT INCONT EA ADLT SZD T4527 NURSES NURSES DISPBL 2 REGISTRY REGISTRY INCONT & HOME HE & HOME HE PROD UNDWEAR/P ULLON LG EA LANCETS A4259 GLOBAL GLOBAL PER BOX 2 MEDICAL MEDICAL OF 100 DIRECT DIRECT BLD GLU A4253 GLOBAL GLOBAL TEST/REAG 2 MEDICAL MEDICAL T STRIPS DIRECT DIRECT HOME BLD GLU MON-50 HIGH K0004 ALEC ALEC STRENGTH 2 HOME HOME [facility] HT EQUIPME EQUIPME WHEELCHAI R ADLT SZD T4527 NURSES NURSES DISPBL 2 REGISTRY REGISTRY INCONT & HOME HE & HOME HE PROD UNDWEAR/P ULLON LG EA DISPBL T4535 NURSES NURSES LINER/SAKINA 2 REGISTRY REGISTRY ELD/GUARD & HOME HE & HOME HE /PAD/UNDG RMNT INCONT EA DISPBL T4535 NURSES NURSES LINER/SAKINA 2 REGISTRY REGISTRY ELD/GUARD & HOME HE & HOME HE /PAD/UNDG RMNT INCONT EA ADLT SZD T4527 NURSES NURSES DISPBL 2 REGISTRY REGISTRY INCONT & HOME HE & HOME HE PROD UNDWEAR/P ULLON LG EA SPRING-PO A4258 [place] WERED 2 [facility] STATES DEVICE MEDICAL MEDICAL FOR SUPPLY SUPPLY LANCET EACH REPL BEV A4235 [facility] LITHIUM 2 [facility] STATES MED NECES MEDICAL MEDICAL DK BG SUPPLY SUPPLY MON OWN PT EA BLD GLU A4253 [facility] TEST/REAG 2 [facility] STATES T STRIPS MEDICAL MEDICAL HOME BLD SUPPLY SUPPLY GLU MON-50 NORMAL A4256 [place] LOW AND 2 [facility] STATES HIGH MEDICAL MEDICAL CALIBRATO SUPPLY SUPPLY R SOLUTION/ CHIPS LANCETS A4259 [facility] PER BOX 2 [facility] STATES OF Formerly named [facility] MEDICAL MEDICAL SUPPLY SUPPLY DISPBL T4535 NURSES NURSES LINER/SAKINA 2 REGISTRY REGISTRY ELD/GUARD & HOME HE & HOME HE /PAD/UNDG RMNT INCONT EA ADLT [facility] T4527 NURSES NURSES DISPBL 2 REGISTRY REGISTRY INCONT & HOME HE & HOME HE PROD UNDWEAR/P ULLON LG [facility] K0004 ALEC ESPINOSARELL STRENGTH 2 HOME HOME [facility] EQUIPME EQUIPME WHEELCHAI [facility] K0004 ALEC ESPINOSARELL STRENGTH 2 HOME HOME [facility] EQUIPME EQUIPME WHEELCHAI [facility] 9[address]29 Kt ANDRADE ELPIDIO DISCHARGE 2 MARTIN VIEYRA DAY PSC MANAGEMEN T 30 MIN/< GENERAL E2601 ALEC MICHAEL WHLCHAIR 2 HOME HOME SEAT MEDICAL MEDICAL CUSHN EQUIPME EQUIPME WIDTH < 22 IN DEPTH COMMODE E0163 ALEC MICHAEL CHAIR 2 HOME HOME MOBILE OR MEDICAL MEDICAL EQUIPME EQUIPME STATIONAR Y W/FIXED ARMS SBSQ 98655 A [facility] 2 MARTIN VIEYRA CARE/DAY PSC 15 MINUTES INITIAL 76628 A [facility] 2 MARTIN VIEYRA CARE/DAY PSC 70 MINUTES ECG 53963 CHINO MATT ROUTINE 2 [facility] W/LEAST P 12 LDS I&R ONLY 3D 06152 EDGAR JOHNSONUTCHER RENDERING 2 MEDICAL JOYCELYN IMAGING W/INTERP& [place] [address] EDGAR RODRIGUEZ CERVICAL 2 MEDICAL JOYCELYN SPINE W/O IMAGING CONTRAST ASS MATERIAL LANCETS A4259 GLOBAL GLOBAL PER BOX 2 MEDICAL MEDICAL OF 100 DIRECT DIRECT BLD GLU A4253 GLOBAL GLOBAL TEST/REAG 2 MEDICAL MEDICAL T STRIPS DIRECT DIRECT HOME BLD GLU WED-50 BLD GLU A4253 [place] TEST/REAG 2 [facility] STATES T STRIPS MEDICAL MEDICAL HOME BLD SUPPLY SUPPLY GLU MON-50 LANCETS A4259 [place] PER BOX 2 [place] [address] MEDICAL MEDICAL SUPPLY SUPPLY NORMAL A4256 [place] LOW AND 2 [facility] HIGH MEDICAL MEDICAL CALIBRATO SUPPLY SUPPLY R SOLUTION/ CHIPS DISPBL T4535 NURSES NURSES LINER/SAKINA 2 REGISTRY REGISTRY ELD/GUARD & HOME HE & HOME HE /PAD/UNDG RMNT INCONT EA ADLT SZD T4527 NURSES NURSES DISPBL 2 REGISTRY REGISTRY INCONT & HOME HE & HOME HE PROD UNDWEAR/P ULLON LG EA ADLT SZD T4527 NURSES NURSES DISPBL 1 REGISTRY REGISTRY INCONT & HOME HE & HOME HE PROD UNDWEAR/P ULLON LG EA ADLT SZD T4527 NURSES NURSES DISPBL 1 REGISTRY REGISTRY INCONT & HOME HE & HOME HE PROD UNDWEAR/P ULLON LG EA DISPBL T4535 NURSES NURSES LINER/SAKINA 1 REGISTRY REGISTRY ELD/GUARD & HOME HE & HOME HE /PAD/UNDG RMNT INCONT EA TRANSFERA 49745 CHINO MAGANA SE 1 [facility] [employer] INC AMINO AST SGOT LIPID 36077 CHINO MAGANA PANEL 1 [facility] INC INC ADLT SZD T4527 NURSES NURSES DISPBL 1 REGISTRY REGISTRY INCONT & HOME HE & HOME HE PROD UNDWEAR/P ULLON LG EA DISPBL T4535 NURSES NURSES LINER/SAKINA 1 REGISTRY REGISTRY ELD/GUARD & HOME HE & HOME HE /PAD/UNDG RMNT INCONT EA SPRING-PO A4258 [facility] WERED 1 [facility] DEVICE MEDICAL MEDICAL FOR SUPPLY SUPPLY LANCET EACH ADLT SZD T4527 NURSES NURSES DISPBL 1 REGISTRY REGISTRY INCONT & HOME HE & HOME HE PROD UNDWEAR/P ULLON LG EA DISPBL T4535 NURSES NURSES LINER/SAKINA 1 REGISTRY REGISTRY ELD/GUARD & HOME HE & HOME HE /PAD/UNDG RMNT INCONT EA LANCETS A4259 DIABETES DIABETES PER BOX 1 [facility] OF 100 LLC LLC NORMAL A4256 DIABETES DIABETES LOW AND 1 [facility] HIGH LLC LLC CALIBRATO R SOLUTION/ CHIPS BLD GLU A4253 DIABETES DIABETES TEST/REAG 1 [facility] T STRIPS LLC LLC HOME BLD GLU MON-50 SPRING-PO A4258 DIABETES DIABETES WERED 1 [facility] DEVICE LLC LLC FOR LANCET EACH ADLT SZD T4527 NURSES NURSES DISPBL 1 REGISTRY REGISTRY INCONT & HOME HE & HOME HE PROD UNDWEAR/P ULLON LG EA DISPBL T4535 NURSES NURSES LINER/SAKINA 1 REGISTRY REGISTRY ELD/GUARD & HOME HE & HOME HE /PAD/UNDG RMNT INCONT EA NONEMERG A0120 LKLP LK TRNSPRT: 1 COMMUNITY COMMUNITY MINI-[employer] ACTION N MTN AREA/OTH SYS ADLT SZD T4527 NURSES NURSES DISPBL 1 REGISTRY REGISTRY INCONT & HOME HE & HOME HE PROD UNDWEAR/P ULLON LG EA DISPBL T4535 NURSES NURSES LINER/SAKINA 1 REGISTRY REGISTRY ELD/GUARD & HOME HE & HOME HE /PAD/UNDG RMNT INCONT EA NORMAL A4256 ARRIVA ARRIVA LOW AND 1 MEDICAL MEDICAL HIGH CALIBRATO R SOLUTION/ CHIPS LANCETS A4259 ARRIVA ARRIVA PER BOX 1 MEDICAL MEDICAL OF 100 BLD GLU A4253 ARRIVA ARRIVA TEST/REAG 1 MEDICAL MEDICAL T STRIPS HOME BLD GLU MON-50 ADLT SZD T4527 NURSES NURSES DISPBL 1 REGISTRY REGISTRY INCONT & HOME HE & HOME HE PROD UNDWEAR/P ULLON LG EA DISPBL T4535 NURSES NURSES LINER/SAKINA 1 REGISTRY REGISTRY ELD/GUARD & HOME HE & HOME HE /PAD/UNDG RMNT INCONT EA WALKER E0135 VICLEN, VICLEN, FOLDING 1 INC INC ADJUSTABL E OR FIXED HEIGHT LANCETS A4259 GLOBAL GLOBAL PER BOX 1 MEDICAL MEDICAL OF 100 DIRECT DIRECT NORMAL A4256 GLOBAL GLOBAL LOW AND 1 MEDICAL MEDICAL HIGH DIRECT DIRECT CALIBRATO R SOLUTION/ CHIPS BLD GLU A4253 GLOBAL GLOBAL TEST/REAG 1 MEDICAL MEDICAL T STRIPS DIRECT DIRECT HOME BLD GLU WED-50 [facility] A4258 GLOBAL GLOBAL WERED 1 MEDICAL AUDIT CLERK DIRECT DIRECT FOR LANCET EACH ADLT [facility] T4527 NURSES NURSES DISPBL 1 REGISTRY REGISTRY INCONT & HOME HE & HOME HE PROD UNDWEAR/P ULLON LG EA DISPBL T4535 NURSES NURSES LINER/SAKINA 1 REGISTRY REGISTRY ELD/GUARD & HOME HE & HOME HE /PAD/UNDG RMNT INCONT EA DISPBL T4535 NURSES NURSES LINER/SAKINA 1 REGISTRY REGISTRY ELD/GUARD & HOME HE & HOME HE /PAD/UNDG RMNT INCONT EA ADLT SZD T4527 NURSES NURSES DISPBL 1 REGISTRY REGISTRY INCONT & HOME HE & HOME HE PROD UNDWEAR/P ULLON LG EA BLD GLU A4253 DIABETES DIABETES TEST/REAG 1 [facility] T [facility] LLC LLC HOME BLD GLU MON-50 NORMAL A4256 DIABETES DIABETES LOW AND 1 [facility] HIGH LLC LLC CALIBRATO R SOLUTION/ CHIPS LANCETS A4259 DIABETES DIABETES PER BOX 1 [facility] OF 100 LLC LLC DISPBL T4535 NURSES NURSES LINER/ASKINA 1 REGISTRY REGISTRY ELD/GUARD & HOME HE & HOME HE /PAD/UNDG RMNT INCONT EA ADLT [facility] T4527 NURSES NURSES DISPBL 1 REGISTRY REGISTRY INCONT & HOME HE & HOME HE PROD UNDWEAR/P ULLON LG [facility] A4258 DIRECT DIRECT WERED 1 DIABETIC DIABETIC DEVICE [employer] FOR INC INC LANCET EACH LANCETS A4259 DIRECT DIRECT PER BOX 1 DIABETIC DIABETIC OF 100 [employer] INC INC NORMAL A4256 DIRECT DIRECT LOW AND 1 DIABETIC DIABETIC HIGH SOURCE SOURCE CALIBRATO INC INC R SOLUTION/ CHIPS BLD GLU A4253 DIRECT DIRECT TEST/REAG 1 DIABETIC DIABETIC T STRIPS S[employer]OURCE HOME BLD INC INC GLU MON-50 LIPID 11265 CHINO MAGANA PANEL 1 [facility] INC INC HEMOGLOBI 49042 CHINO MAGAAN N 1 [facility] GLYCOSYLA INC INC COLIN A1C ADLT [facility] T4527 NURSES NURSES DISPBL 1 REGISTRY REGISTRY INCONT & HOME HE & HOME HE PROD UNDWEAR/P ULLON LG EA DISPBL T4535 NURSES NURSES LINER/SAKINA 1 REGISTRY REGISTRY ELD/GUARD & HOME HE & HOME HE /PAD/UNDG RMNT INCONT EA DISPBL T4535 NURSES NURSES LINER/SAKINA 1 REGISTRY REGISTRY ELD/GUARD & HOME HE & HOME HE /PAD/UNDG RMNT INCONT EA ADLT [facility] T4527 NURSES NURSES DISPBL 1 REGISTRY REGISTRY INCONT & HOME HE & HOME HE PROD UNDWEAR/P ULLON LG [facility] A4258 DOCTOR DOCTOR WERED 1 DIABETIC DIABETIC DEVICE SUPPLY SUPPLY FOR INC INC LANCET EACH ADLT SZD T4527 NURSES NURSES DISPBL 1 REGISTRY REGISTRY INCONT & HOME HE & HOME HE PROD UNDWEAR/P ULLON EA REPL BEV A4235 DOCTOR DOCTOR LITHIUM 1 DIABETIC DIABETIC MED NECES SUPPLY SUPPLY DK BG INC INC MON OWN PT EA LANCETS A4259 DOCTOR DOCTOR PER BOX 1 DIABETIC DIABETIC OF 100 SUPPLY SUPPLY INC INC DISPBL T4535 NURSES NURSES LINER/SAKINA 1 REGISTRY REGISTRY ELD/GUARD & HOME HE & HOME HE /PAD/UNDG RMNT INCONT EA BLD GLU A4253 DOCTOR DOCTOR TEST/REAG 1 DIABETIC DIABETIC T STRIPS SUPPLY SUPPLY HOME BLD INC INC GLU MON-50 NORMAL A4256 DOCTOR DOCTOR LOW AND 1 DIABETIC DIABETIC HIGH SUPPLY SUPPLY CALIBRATO INC INC R SOLUTION/ CHIPS NORMAL A4256 ARRIVA ARRIVA LOW AND 1 MEDICAL MEDICAL HIGH CALIBRATO R SOLUTION/ CHIPS BLD GLU A4253 ARRIVA ARRIVA TEST/REAG 1 MEDICAL MEDICAL T STRIPS HOME BLD GLU MON-50 LANCETS A4259 ARRIVA ARRIVA PER BOX 1 MEDICAL MEDICAL OF 100 DISPBL T4535 NURSES NURSES LINER/SAKINA 1 REGISTRY REGISTRY ELD/GUARD & HOME HE & HOME HE /PAD/UNDG RMNT INCONT EA ADLT SZD T4527 NURSES NURSES DISPBL 1 REGISTRY REGISTRY INCONT & HOME HE & HOME HE PROD UNDWEAR/P ULLON LG EA BLD GLU A4253 DIABETES DIABETES TEST/REAG 1 [facility] T [facility] LLC HOME BLD GLU MON-50 REPL BEV A4235 DIABETES DIABETES LITHIUM 1 [facility] MED NECES LLC LLC DK BG MON OWN PT EA NORMAL A4256 DIABETES DIABETES LOW AND 1 [facility] HIGH LLC LLC CALIBRATO R SOLUTION/ CHIPS LANCETS A4259 DIABETES DIABETES PER BOX 1 [facility] OF 100 LLC LLC DISPBL T4535 NURSES NURSES LINER/SAKINA 1 REGISTRY REGISTRY ELD/GUARD & HOME HE & HOME HE /PAD/UNDG RMNT INCONT EA ADLT SZD T4527 NURSES NURSES DISPBL 1 REGISTRY REGISTRY INCONT & HOME HE & HOME HE PROD UNDWEAR/P ULLON LG EA ADLT SZD T4527 NURSES NURSES DISPBL 1 REGISTRY REGISTRY INCONT & HOME HE & HOME HE PROD UNDWEAR/P ULLON LG EA DISPBL T4535 NURSES NURSES LINER/SAKINA 1 REGISTRY REGISTRY ELD/GUARD & HOME HE & HOME HE /PAD/UNDG RMNT INCONT EA DISPBL T4535 NURSES NURSES LINER/SAKINA 1 REGISTRY REGISTRY ELD/GUARD & HOME HE & HOME HE /PAD/UNDG RMNT INCONT EA ADLT SZD T4527 NURSES NURSES DISPBL 1 REGISTRY REGISTRY INCONT & HOME HE & HOME HE PROD UNDWEAR/P ULLON LG EA ADLT SZD T4527 NURSES NURSES DISPBL 1 REGISTRY REGISTRY INCONT & HOME HE & HOME HE PROD UNDWEAR/P ULLON LG EA DISPBL T4535 NURSES NURSES LINER/SAKINA 1 REGISTRY REGISTRY ELD/GUARD & HOME HE & HOME HE /PAD/UNDG RMNT INCONT EA REPL BEV A4233 ARRIVA ARRIVA ALKALINE 1 MEDICAL MEDICAL NOT J CELL DK BG MON OWND PT LANCETS A4259 ARRIVA ARRIVA PER BOX 1 MEDICAL MEDICAL OF 100 NORMAL A4256 ARRIVA ARRIVA LOW AND 1 MEDICAL MEDICAL HIGH CALIBRATO R SOLUTION/ CHIPS BLD GLU A4253 ARRIVA ARRIVA TEST/REAG 1 MEDICAL MEDICAL T STRIPS HOME BLD GLU spring-PO A4258 ARRIVA ARRIVA WERED 1 MEDICAL AUDIT CLERK FOR LANCET EACH BLD GLU A4253 DOCTOR DOCTOR TEST/REAG 1 DIABETIC DIABETIC T STRIPS SUPPLY SUPPLY HOME BLD INC INC GLU MON-50 NORMAL A4256 DOCTOR DOCTOR LOW AND 1 DIABETIC DIABETIC HIGH SUPPLY SUPPLY CALIBRATO INC INC R SOLUTION/ CHIPS LANCETS A4259 DOCTOR DOCTOR PER BOX 1 DIABETIC DIABETIC OF 100 SUPPLY SUPPLY INC INC DISPBL T4535 NURSES NURSES LINER/SAKINA 1 REGISTRY REGISTRY ELD/GUARD & HOME HE & HOME HE /PAD/UNDG RMNT INCONT EA ADLT SZD T4527 NURSES NURSES DISPBL 1 REGISTRY REGISTRY INCONT & HOME HE & HOME HE PROD UNDWEAR/P ULLON EA PO A4258 DIABETES DIABETES WERED 1 [facility] DEVICE LLC LLC FOR LANCET EACH BLD GLU A4253 DIABETES DIABETES TEST/REAG 1 [facility] T [facility] [employer] LLC HOME BLD GLU MON-50 LANCETS A4259 DIABETES DIABETES PER BOX 1 [facility] OF 100 [facility] NORMAL A4256 DIABETES DIABETES LOW AND 1 [facility] HIGH [facility] CALIBRATO R SOLUTION/ CHIPS COLLECTIO 75293 A Antonio ANDRADE ELPIDIO N VENOUS 1 MARTIN VIEYRA BLOOD PSC VENIPUNCT URE URINLS 74576 A Antonio ANDRADE ELPIDIO DIP 1 MARTIN VIEYRA STICK/TAB PSC LET REAGNT NON-AUTO MICRSCPY GLUCOSE 14872 A Antonio ANDRADE ELPIDIO QUANTITAT 1 MARTIN VIEYRA BAIRON BLOOD PSC XCPT REAGENT STRIP ADLT SZD T4527 NURSES NURSES DISPBL 1 REGISTRY REGISTRY INCONT & HOME HE & HOME HE PROD UNDWEAR/P ULLON LG EA DISPBL T4535 NURSES NURSES LINER/SAKINA 1 REGISTRY REGISTRY ELD/GUARD & HOME HE & HOME HE /PAD/UNDG RMNT INCONT EA DISPBL T4535 NURSES NURSES LINER/SAKINA 0 REGISTRY REGISTRY ELD/GUARD & HOME HE & HOME HE /PAD/UNDG RMNT INCONT EA ADLT SZD T4527 NURSES NURSES DISPBL 0 REGISTRY REGISTRY INCONT & HOME HE & HOME HE PROD UNDWEAR/P ULLON LG EA BREAST 97674 [place] MICHAEL REAL 0 MEDICAL JOYCELYN TIME IMAGING W/IMAGE ASS DOCUMENTA TION DIAGNOSTI G0206 [place] MICHAEL C 0 MEDICAL JOYCELYN MAMMOGRAP IMAGING HY INCL ASS CAD WHEN PERF; UNI ADLT SZD T4527 NURSES NURSES DISPBL 0 REGISTRY REGISTRY INCONT & HOME HE & HOME HE PROD UNDWEAR/P ULLON LG EA DISPBL T4535 NURSES NURSES LINER/SAKINA 0 REGISTRY REGISTRY ELD/GUARD & HOME HE & HOME HE /PAD/UNDG RMNT INCONT EA BLD GLU A4253 TUSHAR FINLEY, TEST/REAG 0 INC INC T STRIPS HOME BLD GLU MON-50 DISPBL T4535 NURSES NURSES LINER/SAKINA 0 REGISTRY REGISTRY ELD/GUARD & HOME HE & HOME HE /PAD/UNDG RMNT INCONT EA ADLT SZD T4527 NURSES NURSES DISPBL 0 REGISTRY REGISTRY INCONT & HOME HE & HOME HE PROD UNDWEAR/P ULLON LG EA A4258 DOCTOR DOCTOR WERED 0 DIABETIC DIABETIC DEVICE SUPPLY SUPPLY FOR INC INC LANCET EACH LANCETS A4259 DOCTOR DOCTOR PER BOX 0 DIABETIC DIABETIC OF 100 SUPPLY SUPPLY INC INC BLD GLU A4253 DOCTOR DOCTOR TEST/REAG 0 DIABETIC DIABETIC T STRIPS SUPPLY SUPPLY HOME BLD INC INC GLU MON-50 NORMAL A4256 DOCTOR DOCTOR LOW AND 0 DIABETIC DIABETIC HIGH SUPPLY SUPPLY CALIBRATO INC INC R SOLUTION/ CHIPS BLD GLU A4253 ARRIVA ARRIVA TEST/REAG 0 MEDICAL MEDICAL T STRIPS HOME BLD GLU MON-50 NORMAL A4256 ARRIVA ARRIVA LOW AND 0 MEDICAL MEDICAL HIGH CALIBRATO R SOLUTION/ CHIPS LANCETS A4259 ARRIVA ARRIVA PER BOX 0 MEDICAL MEDICAL OF 100 SCREENING G0202 CHINO MAGANA 0 [facility] MAMMOGRAP INC INC HY DANIA INCL CAD WHEN PERFORMD 24364 CHINO MAGANA AIDED 0 [facility] DETECTION INC INC SCREENING MAMMOGRAP HY ADLT SZD T4527 NURSES NURSES DISPBL 0 REGISTRY REGISTRY INCONT & HOME HE & HOME HE PROD UNDWEAR/P ULLON LG EA DISPBL T4535 NURSES NURSES LINER/SAKINA 0 REGISTRY REGISTRY ELD/GUARD & HOME HE & HOME HE /PAD/UNDG RMNT INCONT EA NORMAL A4256 TUSHAR FINLEY, LOW AND 0 INC INC HIGH CALIBRATO R SOLUTION/ CHIPS BLD GLU A4253 TUSHAR FINLEY, TEST/REAG 0 INC INC T STRIPS HOME BLD GLU MON50 ADLT SZD T4527 NURSES NURSES DISPBL 0 REGISTRY REGISTRY INCONT & HOME HE & HOME HE PROD UNDWEAR/P PIERRELON LG EA DISPBL T4535 NURSES NURSES LINER/SAKINA 0 REGISTRY REGISTRY ELD/GUARD & HOME HE & HOME HE /PAD/UNDG RMNT INCONT EA DISPBL T4535 NURSES NURSES LINER/SAKINA 0 REGISTRY REGISTRY ELD/GUARD & HOME HE & HOME HE /PAD/UNDG RMNT INCONT EA ADLT SZD T4527 NURSES NURSES DISPBL 0 REGISTRY REGISTRY INCONT & HOME HE & HOME HE PROD UNDWEAR/P ULLON LG EA HEMOGLOBI 92900 LAB SHIN LAB SHIN N 0 AMERIC AMERIC GLYCOSYLA HOLDING HOLDING COLIN A1C BLOOD 79288 LAB SHIN LAB SHIN COUNT 0 AMERIC AMERIC COMPLETE HOLDING HOLDING AUTO&AUTO DIFRNTL WBC BASIC 62560 LAB SHIN LAB SHIN METABOLIC 0 AMERIC AMERIC PANEL HOLDING HOLDING CALCIUM TOTAL LIPID 01628 LAB SHIN LAB SHIN PANEL 0 AMERIC AMERIC HOLDING HOLDING TRANSFERA 19025 LAB SHIN LAB SHIN SE 0 AMERIC AMERIC ASPARTATE [place] [address] LAB SHIN LAB SHIN THYROID 0 AMERIC AMERIC STIMULATI HOLDING HOLDING NG HORMONE TSH COLLECTIO 93174 A C SALAZAR A N VENOUS 0 MARTIN VIEYRA BLOOD PSC VENIPUNCT URE DISPBL T4535 NURSES NURSES LINER/SAKINA 0 REGISTRY REGISTRY ELD/GUARD & HOME HE & HOME HE /PAD/UNDG RMNT INCONT EA ADLT D T4527 NURSES NURSES DISPBL 0 REGISTRY REGISTRY INCONT & HOME HE & HOME HE PROD UNDWEAR/P ULLON EA BLD GLU A4253 VICLEN, TUSHAR, TEST/REAG 0 INC INC T STRIPS HOME BLD GLU MON-50 DISPBL T4535 NURSES NURSES LINER/SAKINA 0 REGISTRY REGISTRY ELD/GUARD & HOME HE & HOME HE /PAD/UNDG RMNT INCONT EA ADLT SZD T4527 NURSES NURSES DISPBL 0 REGISTRY REGISTRY INCONT & HOME HE & HOME HE PROD UNDWEAR/P ULLON EA ADLT SZD T4527 NURSES NURSES DISPBL 0 REGISTRY REGISTRY INCONT & HOME HE & HOME HE PROD UNDWEAR/P ULLON LG EA DISPBL T4535 NURSES NURSES LINER/SAKINA 0 REGISTRY REGISTRY ELD/GUARD & HOME HE & HOME HE /PAD/UNDG RMNT INCONT EA LANCETS A4259 ARRIVA ARRIVA PER BOX 0 MEDICAL MEDICAL OF 100 BLD GLU A4253 ARRIVA ARRIVA TEST/REAG 0 MEDICAL MEDICAL T STRIPS HOME BLD GLU MON-50 NORMAL A4256 ARRIVA ARRIVA LOW AND 0 MEDICAL MEDICAL HIGH CALIBRATO R SOLUTION/ [facility] A4258 ARRIVA ARRIVA WERED 0 MEDICAL AUDIT CLERK FOR LANCET EACH HOME E0607 ARRIVA ARRIVA BLOOD 0 MEDICAL MEDICAL GLUCOSE MONITOR URNLS DIP 72369 CHINO MAGANA 0 [facility] STICK/TAB INC INC LET REAGENT AUTO MICROSCOP Y CULTURE 16515 CHINO MAGANA BACTERIAL 0 [facility] INC INC QUANTTATI VE COLONY COUNT URINE DISPBL T4535 NURSES NURSES LINER/SAKINA 0 REGISTRY REGISTRY ELD/GUARD & HOME HE & HOME HE /PAD/UNDG RMNT INCONT EA ADLT SZD T4527 NURSES NURSES DISPBL 0 REGISTRY REGISTRY INCONT & HOME HE & HOME HE PROD UNDWEAR/P ULLON LG EA ADLT SZD T4527 NURSES NURSES DISPBL 0 REGISTRY REGISTRY INCONT & HOME HE & HOME HE PROD UNDWEAR/P ULLON LG EA DISPBL T4535 NURSES NURSES LINER/SAKINA 0 REGISTRY REGISTRY ELD/GUARD & HOME HE & HOME HE /PAD/UNDG RMNT INCONT EA BLD GLU A4253 TUSHAR FINLEY, TEST/REAG 0 INC INC T STRIPS HOME BLD GLU MON-50 DISPBL T4535 NURSES NURSES LINER/SAKINA 0 REGISTRY REGISTRY ELD/GUARD & HOME HE & HOME HE /PAD/UNDG RMNT INCONT EA ADLT SZD T4527 NURSES NURSES DISPBL 0 REGISTRY REGISTRY INCONT & HOME HE & HOME HE PROD UNDWEAR/P ULLON LG EA GLUC BLD 42413 Kt ANDRADE, GLUC MNTR 0 MARTIN AVILA PSC CLEARED FDA SPEC HOME USE BLD GLU A4253 TUSHAR FINLEY, TEST/REAG 0 INC INC T STRIPS HOME BLD GLU MON-50 DISPBL T4535 NURSES NURSES LINER/SAKINA 0 REGISTRY REGISTRY ELD/GUARD & HOME & HOME /PAD/UNDG HEALH HEALH RMNT INCONT EA ADLT SZD T4526 NURSES NURSES DISPBL 0 REGISTRY REGISTRY INCONT & HOME & HOME PROD HEALH HEALH UNDWEAR MED EA BLD GLU A4253 TUSHAR FINLEY, TEST/REAG 0 INC INC T STRIPS HOME BLD GLU MON-50 ADLT SZD T4526 NURSES NURSES DISPBL 0 REGISTRY REGISTRY INCONT & HOME & HOME PROD HEALH HEALH UNDWEAR MED EA DISPBL T4535 NURSES NURSES LINER/SAKINA 0 REGISTRY REGISTRY ELD/GUARD & HOME & HOME /PAD/UNDG HEALH HEALH RMNT INCONT EA BLD GLU A4253 TUSHAR FINLEY, TEST/REAG 0 INC INC T STRIPS HOME BLD GLU MON-50 TRANSFERA 12169 [facility] SE 0 [facility] ASPARTATE AMINO AST SGOT CULTURE 50293 [facility] BACTERIAL 0 [facility] QUANTTATI VE COLONY COUNT URINE COLLECTIO 54862 A Antonio ANDRADE, N VENOUS 0 MARTIN Meraz BLOOD PSC VENIPUNCT URE BASIC 60967 [facility] METABOLIC 0 [facility] PANEL CALCIUM TOTAL LIPID 20104 [facility] PANEL 0 [facility] HEMOGLOBI 75179 [facility] N 0 [facility] GLYCOSYLA COLIN A1C URINLS 19592 A Antonio ANDRADE, DIP 0 MARTIN Meraz STICK/TAB PSC LET REAGNT NON-AUTO MICRSCPY ALBUMIN 62917 A Antonio ANDRADE, URINE 0 MARTIN Meraz MICROALBU PSC MIN SEMIQUANT ITATIVE DISPBL T4535 NURSES NURSES LINER/SAKINA 0 REGISTRY REGISTRY ELD/GUARD & HOME & HOME /PAD/UNDG [facility] RMNT INCONT EA ADLT SZD T4526 NURSES NURSES DISPBL 0 REGISTRY REGISTRY INCONT & HOME & HOME PROD HEALH HEALH UNDWEAR MED EA BLD GLU A4253 TUSHAR FINLEY, TEST/REAG 0 INC INC T STRIPS HOME BLD GLU MON-50 ADLT SZD T4526 NURSES NURSES DISPBL 0 REGISTRY REGISTRY INCONT & HOME & HOME PROD HEALH HEALH UNDWEAR MED EA DISPBL T4535 NURSES NURSES LINER/SAKINA 0 REGISTRY REGISTRY ELD/GUARD & HOME & HOME /PAD/UNDG HEALH HEALH RMNT INCONT EA BLD GLU A4253 TUSHAR FINLEY, TEST/REAG 0 INC INC T STRIPS HOME BLD GLU MON-50 ADLT SZD T4526 NURSES NURSES DISPBL 0 REGISTRY REGISTRY INCONT & HOME & HOME PROD HEALH HEALH UNDWEAR MED EA DISPBL T4535 NURSES NURSES LINER/SAKINA 0 REGISTRY REGISTRY ELD/GUARD & HOME & HOME /PAD/UNDG HEALH HEALH RMNT INCONT EA BLD GLU A4253 TUSHAR FINLEY, TEST/REAG 0 INC INC T STRIPS HOME BLD GLU MON-50 DISPBL T4535 NURSES NURSES LINER/SAKINA 0 REGISTRY REGISTRY ELD/GUARD & HOME & HOME /PAD/UNDG HEALH HEALH RMNT INCONT EA ADLT SZD T4526 NURSES NURSES DISPBL 0 REGISTRY REGISTRY INCONT & HOME & HOME PROD HEALH HEALH UNDWEAR MED EA ADLT SZD T4526 NURSES NURSES DISPBL 9 REGISTRY REGISTRY INCONT & HOME & HOME PROD HEALH HEALH UNDWEAR MED EA DISPBL T4535 NURSES NURSES LINER/SAKINA 9 REGISTRY REGISTRY ELD/GUARD & HOME & HOME /PAD/UNDG HEALH HEALH RMNT INCONT EA BLD GLU A4253 TUSHAR FINLEY, TEST/REAG 9 INC INC T STRIPS HOME BLD GLU MON-50 ADLT SZD T4526 NURSES NURSES DISPBL 9 REGISTRY REGISTRY INCONT & HOME & HOME PROD HEALH HEALH UNDWEAR MED EA DISPBL T4535 NURSES NURSES LINER/SAKINA 9 REGISTRY REGISTRY ELD/GUARD & HOME & HOME /PAD/UNDG HEALH HEALH RMNT INCONT EA BLD GLU A4253 VICLEN, VICLEN, TEST/REAG 9 INC INC T STRIPS HOME BLD GLU MON-50 DISPBL T4535 NURSES NURSES LINER/SAKINA 9 REGISTRY REGISTRY ELD/GUARD & HOME & HOME /PAD/UNDG HEALH HEALH RMNT INCONT EA ADLT SZD T4526 NURSES NURSES DISPBL 9 REGISTRY REGISTRY INCONT & HOME & HOME PROD HEALH HEALH UNDWEAR MED EA LANCETS A4259 NR HOME NR HOME PER BOX 9 INFUSION INFUSION OF 100 BLD GLU A4253 NR HOME NR HOME TEST/REAG 9 INFUSION INFUSION T STRIPS HOME BLD GLU MON-50 ADLT SZD T4526 NURSES NURSES DISPBL 9 REGISTRY REGISTRY INCONT & HOME & HOME PROD HEALH HEALH UNDWEAR MED EA DISPBL T4535 NURSES NURSES LINER/SAKINA 9 REGISTRY REGISTRY ELD/GUARD & HOME & HOME /PAD/UNDG HEALH HEALH RMNT INCONT EA ADLT SZD T4526 NURSES NURSES DISPBL 9 REGISTRY REGISTRY INCONT & HOME & HOME PROD HEALH HEALH UNDWEAR MED EA DISPBL T4535 NURSES NURSES LINER/SAKINA 9 REGISTRY REGISTRY ELD/GUARD & HOME & HOME /PAD/UNDG HEALH HEALH RMNT INCONT EA LANCETS A4259 NR HOME NR HOME PER BOX 9 INFUSION INFUSION OF 100 BLD GLU A4253 NR HOME NR HOME TEST/REAG 9 INFUSION INFUSION T STRIPS HOME BLD GLU MON-50 ADLT SZD T4526 NURSES NURSES DISPBL 9 REGISTRY REGISTRY INCONT & HOME & HOME PROD HEALH HEALH UNDWEAR MED EA DISPBL T4535 NURSES NURSES LINER/SAKINA 9 REGISTRY REGISTRY ELD/GUARD & HOME & HOME /PAD/UNDG HEALH HEALH RMNT INCONT EA BLD GLU A4253 NR HOME NR HOME TEST/REAG 9 INFUSION INFUSION T STRIPS HOME BLD GLU MON-50 ADLT SZD T4526 NURSES NURSES DISPBL 9 REGISTRY REGISTRY INCONT & HOME & HOME PROD HEALH HEALH UNDWEAR MED EA DISPBL T4535 NURSES NURSES LINER/SAKINA 9 REGISTRY REGISTRY ELD/GUARD & HOME & HOME /PAD/UNDG [facility] RMNT INCONT EA LANCETS A4259 NR HOME NR HOME PER BOX 9 INFUSION INFUSION OF 100 BLD GLU A4253 NR HOME NR HOME TEST/REAG 9 INFUSION INFUSION T STRIPS HOME BLD GLU MON-50 ADLT SZD T4526 NURSES NURSES DISPBL 9 REGISTRY REGISTRY INCONT & HOME & HOME PROD [facility] UNDWEAR MED EA DISPBL T4535 NURSES NURSES LINER/SAKINA 9 REGISTRY REGISTRY ELD/GUARD & HOME & HOME /PAD/UNDG [facility] RMNT INCONT EA BLD GLU A4253 NR HOME NR HOME TEST/REAG 9 INFUSION INFUSION T STRIPS HOME BLD GLU MON-50 BLD GLU A4253 NR HOME NR HOME TEST/REAG 9 INFUSION INFUSION T STRIPS HOME BLD GLU MON-50 LANCETS A4259 NR HOME NR HOME PER BOX 9 INFUSION INFUSION OF 100 URINLS 48466 A C TASHA, DIP 9 MARTIN PORTILLO A STICK/TAB PSC LET REAGNT NON-AUTO MICRSCPY DIRECT G0154 NURSES NURSES SKILL 9 REGISTRY REGISTRY NURSE & HOME & HOME SERVICES [facility] E EA 15 MIN DISPBL T4535 NURSES NURSES LINER/SAKINA 9 REGISTRY REGISTRY ELD/GUARD & HOME & HOME /PAD/UNDG [facility] RMNT INCONT EA BLD GLU A4253 NR HOME NR HOME TEST/REAG 9 INFUSION INFUSION T STRIPS HOME BLD GLU MON-50 DISPBL T4535 NURSES NURSES LINER/SAKINA 8 REGISTRY REGISTRY ELD/GUARD & HOME & HOME /PAD/UNDG [facility] RMNT INCONT EA DIRECT G0154 NURSES NURSES SKILL 8 REGISTRY REGISTRY NURSE & HOME & HOME SERVICES [facility] E EA 15 MIN DIRECT G0154 NURSES NURSES SKILL 8 REGISTRY REGISTRY NURSE & HOME & HOME SERVICES [facility] E EA 15 MIN DISPBL T4535 NURSES NURSES LINER/SAKINA 8 REGISTRY REGISTRY ELD/GUARD & HOME & HOME /PAD/UNDG [facility] RMNT INCONT EA LANCETS A4259 NR HOME NR HOME PER BOX 8 INFUSION INFUSION OF 100 BLD GLU A4253 NR HOME NR HOME TEST/REAG 8 INFUSION INFUSION T STRIPS HOME BLD GLU MON-50 COLLECTIO 81715 Kt DOWNS N VENOUS 8 MARTIN Alvarez BLOOD PSC VENIPUNCT URE GLUCOSE 60906 Kt DOWNS QUANTITAT 8 MARTIN Alvarez BAIRON BLOOD PSC XCPT REAGENT STRIP DIRECT G0154 NURSES NURSES SKILL 8 REGISTRY REGISTRY NURSE & HOME & HOME SERVICES [facility] E EA 15 MIN DIRECT G0154 NURSES NURSES SKILL 8 REGISTRY REGISTRY NURSE & HOME & HOME SERVICES [facility] E EA 15 MIN LANCETS A4259 NR HOME NR HOME PER BOX 8 INFUSION INFUSION OF 100 BLD GLU A4253 NR HOME NR HOME TEST/REAG 8 INFUSION INFUSION T STRIPS HOME BLD GLU MON-50 DISPBL T4535 NURSES NURSES LINER/SAKINA 8 REGISTRY REGISTRY ELD/GUARD & HOME & HOME /PAD/UNDG [facility] RMNT INCONT EA DIRECT G0154 NURSES NURSES SKILL 8 REGISTRY REGISTRY NURSE & HOME & HOME SERVICES [facility] E EA 15 MIN DIRECT G0154 NURSES NURSES SKILL 8 REGISTRY REGISTRY NURSE & HOME & HOME SERVICES [facility] E EA 15 MIN BLD GLU A4253 NR HOME NR HOME TEST/REAG 8 INFUSION INFUSION T STRIPS HOME BLD GLU MON-50 DISPBL T4535 NURSES NURSES LINER/SAKINA 8 REGISTRY REGISTRY ELD/GUARD & HOME & HOME /PAD/UNDG [facility] RMNT INCONT EA DIRECT G0154 NURSES NURSES SKILL 8 REGISTRY REGISTRY NURSE & HOME & HOME SERVICES [facility] E EA 15 MIN DIRECT G0154 NURSES NURSES SKILL 8 REGISTRY REGISTRY NURSE & HOME & HOME SERVICES [facility] E EA 15 MIN DIRECT G0154 NURSES NURSES SKILL 8 REGISTRY REGISTRY [facility] MIN DISPBL T4535 NURSES NURSES LINER/SAKINA 8 REGISTRY REGISTRY ELD/GUARD & HOME & HOME /PAD/UNDG [facility] RMNT INCONT EA LANCETS A4259 NR HOME NR HOME PER BOX 8 INFUSION INFUSION OF 100 BLD GLU A4253 NR HOME NR HOME TEST/REAG 8 INFUSION INFUSION T STRIPS HOME BLD GLU MON-50 DISPBL T4535 NURSES NURSES LINER/SAKINA 8 REGISTRY REGISTRY ELD/GUARD & HOME & HOME /PAD/UNDG [facility] RMNT INCONT EA DIRECT G0154 NURSES NURSES SKILL 8 REGISTRY REGISTRY [facility] MIN DIRECT G0154 NURSES NURSES SKILL 8 REGISTRY REGISTRY [facility] MIN DISPBL T4535 NURSES NURSES LINER/SAKINA 8 REGISTRY REGISTRY ELD/GUARD & HOME & HOME /PAD/UNDG [facility] RMNT INCONT EA BLD GLU A4253 NR HOME NR HOME TEST/REAG 8 INFUSION INFUSION T STRIPS HOME BLD GLU MON-50 LANCETS A4259 NR HOME NR HOME PER BOX 8 INFUSION INFUSION OF 100 DIRECT G0154 NURSES NURSES SKILL 8 REGISTRY REGISTRY NURSE & HOME & HOME SERVICES [facility] E EA 15 MIN DIRECT G0154 NURSES NURSES SKILL 8 REGISTRY REGISTRY [facility] MIN DIRECT G0154 NURSES NURSES SKILL 8 REGISTRY REGISTRY [facility] 15 MIN BLD GLU A4253 NR HOME NR HOME TEST/REAG 8 INFUSION INFUSION T STRIPS HOME BLD GLU MON-50 DISPBL T4535 NURSES NURSES LINER/SAKINA 8 REGISTRY REGISTRY ELD/GUARD & HOME & HOME /PAD/UNDG [facility] RMNT INCONT EA DIRECT G0154 NURSES NURSES SKILL 8 REGISTRY REGISTRY [facility] MIN DIRECT G0154 NURSES NURSES SKILL 8 REGISTRY REGISTRY NURSE & HOME & HOME SERVICES [facility] E EA 15 MIN DIRECT G0154 NURSES NURSES SKILL 8 REGISTRY REGISTRY NURSE & HOME & HOME SERVICES [facility] E EA 15 MIN DIRECT G0154 NURSES NURSES SKILL 8 REGISTRY REGISTRY NURSE & HOME & HOME SERVICES [facility] E EA 15 MIN DIRECT G0154 NURSES NURSES SKILL 8 REGISTRY REGISTRY NURSE & HOME & HOME SERVICES [facility] E EA 15 MIN DIRECT G0154 NURSES NURSES SKILL 8 REGISTRY REGISTRY NURSE & HOME & HOME SERVICES [facility] E EA 15 MIN A4258 NR HOME NR HOME WERED 8 INFUSION INFUSION DEVICE FOR LANCET EACH DISPBL T4535 NURSES NURSES LINER/SAKINA 8 REGISTRY REGISTRY ELD/GUARD & HOME & HOME /PAD/UNDG [facility] RMNT INCONT EA LANCETS A4259 NR HOME NR HOME PER BOX 8 INFUSION INFUSION OF 100 BLD GLU A4253 NR HOME NR HOME TEST/REAG 8 INFUSION INFUSION T STRIPS HOME BLD GLU MON-50 NORMAL A4256 NR HOME NR HOME LOW AND 8 INFUSION INFUSION HIGH CALIBRATO R SOLUTION/ CHIPS DIRECT G0154 NURSES NURSES SKILL 8 REGISTRY REGISTRY NURSE & HOME & HOME SERVICES [facility] E EA 15 MIN DISPBL T4535 NURSES NURSES LINER/SAKINA 8 REGISTRY REGISTRY ELD/GUARD & HOME & HOME /PAD/UNDG [facility] RMNT INCONT EA DIRECT G0154 NURSES NURSES SKILL 8 REGISTRY REGISTRY NURSE & HOME & HOME SERVICES [facility] E EA 15 MIN DIRECT G0154 NURSES NURSES SKILL 8 REGISTRY REGISTRY NURSE & HOME & HOME SERVICES [facility] E EA 15 MIN DIRECT G0154 NURSES NURSES SKILL 8 REGISTRY REGISTRY NURSE & HOME & HOME SERVICES [facility] E EA 15 MIN BLD GLU A4253 NR HOME NR HOME TEST/REAG 8 INFUSION INFUSION T STRIPS HOME BLD GLU MON-50 LANCETS A4259 NR HOME NR HOME PER BOX 8 INFUSION INFUSION OF 100 DIRECT G0154 NURSES NURSES SKILL 8 REGISTRY REGISTRY NURSE & HOME & HOME SERVICES [facility] E EA 15 MIN DIRECT G0154 NURSES NURSES SKILL 8 REGISTRY REGISTRY NURSE & HOME & HOME SERVICES [facility] E EA 15 MIN DIRECT G0154 NURSES NURSES SKILL 8 REGISTRY REGISTRY NURSE & HOME & HOME SERVICES [facility] E EA 15 MIN DISPBL T4535 NURSES NURSES LINER/SAKINA 8 REGISTRY REGISTRY ELD/GUARD & HOME & HOME /PAD/UNDG [facility] RMNT INCONT EA DIRECT G0154 NURSES NURSES SKILL 8 REGISTRY REGISTRY NURSE & HOME & HOME SERVICES [facility] E EA 15 MIN DIRECT G0154 NURSES NURSES SKILL 8 REGISTRY REGISTRY NURSE & HOME & HOME SERVICES [facility] E EA 15 MIN DISPBL T4535 NURSES NURSES LINER/SAKINA 8 REGISTRY REGISTRY ELD/GUARD & HOME & HOME /PAD/UNDG [facility] RMNT INCONT EA DIRECT G0154 NURSES NURSES SKILL 8 REGISTRY REGISTRY NURSE & HOME & HOME SERVICES [facility] E EA 15 MIN DIRECT G0154 NURSES NURSES SKILL 8 REGISTRY REGISTRY NURSE & HOME & HOME SERVICES [facility] E EA 15 MIN BLD GLU A4253 NR HOME NR HOME TEST/REAG 8 INFUSION INFUSION T STRIPS HOME BLD GLU MON-50 DISPBL T4535 NURSES NURSES LINER/SAKINA 8 REGISTRY REGISTRY ELD/GUARD & HOME & HOME /PAD/UNDG [facility] RMNT INCONT EA DIRECT G0154 NURSES NURSES SKILL 8 REGISTRY REGISTRY NURSE & HOME & HOME SERVICES [facility] E EA 15 MIN DIRECT G0154 NURSES NURSES SKILL 8 REGISTRY REGISTRY NURSE & HOME & HOME SERVICES [facility] E EA 15 MIN DIRECT G0154 NURSES NURSES SKILL 8 REGISTRY REGISTRY NURSE & HOME & HOME SERVICES [facility] E EA 15 MIN DIRECT G0154 NURSES NURSES SKILL 8 REGISTRY REGISTRY NURSE & HOME & HOME SERVICES [facility] HH/HOSPIC E EA 15 MIN DIRECT G0154 NURSES NURSES SKILL 8 REGISTRY REGISTRY NURSE & HOME & HOME SERVICES [facility] HH/HOSPIC E EA 15 MIN DIRECT G0154 NURSES NURSES SKILL 8 REGISTRY REGISTRY NURSE & HOME & HOME SERVICES [facility] HH/HOSPIC E EA 15 MIN DISPBL T4535 NURSES NURSES LINER/SAKINA 8 REGISTRY REGISTRY ELD/GUARD & HOME & HOME /PAD/UNDG [facility] RMNT INCONT EA Encounters Encounter Start End Date Code Location Performer Type Date OFFICE [address]374 [place] [facility] OUTPATIEN 7 7 MEDICAL T NEW 60 SERV MINUTES [facility] - 7 7 [facility] OUTPATIEN E HOSPITALS OFFICE 62220 [facility] HAM OUTPATIEN 7 7 PHYSICIAN A T VISIT S GROUP 15 MINUTES [facility] CHINO - 7 7 [facility] CHINO - 7 7 [facility] CHINO - 7 7 [facility] OUTPATIEN [facility] EMERGENCY 44984 [facility] DEPT 7 7 PHYSICIAN VISIT S, PLLC HIGH SEVERITY& THREAT [facility] CHINO - OTHER 7 7 [facility] CHINO [facility] OTHER 7 7 [facility] CHINO - 7 7 [facility] OUTPATIEN INC [facility] CHINO - 7 7 [facility]PAT[facility] CHINO - 7 7 [facility]PATIEN [facility] OFFICE 05371 [facility] HAYNES OUTPATIEN 6 6 [facility] 10 MINUTES EMERGENCY 75719 CHINO 6 6 [facility] DEPARTMEN [facility] T VISIT LOW/MODER SEVERITY HOSPITAL CHINO - 6 6 [facility] OUTPATIEN INC T EMERGENCY 84982 PATI THOMPSON 6 6 PHYSICIAN [facility] T VISIT HIGH/URGE NT SEVERITY OFFICE 84712 A Antonio MENON OUTPATIEN 6 6 MARTIN ROD T VISIT PSC 15 MINUTES OFFICE 26207 [facility] CAROL OUTPATIEN 6 6 FERMIN RAMU T NEW 30 MINUTES OFFICE 04673 A Antonio MAGALLANES OUTPATIEN 6 6 MARTIN VIEYRA T VISIT PSC 15 MINUTES HOSPITAL [facility] - 6 6 N OUTPATIEN COMMUNTIY T HOSPITA EMERGENCY 10[address] [facility] 6 6 [facility] PHYS HIGH/URGE NT SEVERITY EMERGENCY 17476 [facility] 6 6 N DEPARTMEN COMMUNTIY T VISIT HOSPITA MODERATE SEVERITY EMERGENCY 27498 PATI RODRIGUEZ DEPT 6 6 PHYSICIAN JEREMIAS VISIT [facility] HIGH SEVERITY& THREAT FUNCJ OFFICE 50267 A Antonio RODRIGUEZ OUTPATIEN 6 6 MARTIN SMYTH T VISIT PSC 15 MINUTES OFFICE 14562 A Antonio MAGALLANES OUTPATIEN 6 6 MARTIN VIEYRA T VISIT PSC 25 MINUTES OFFICE 50292 A Antonio MAGALLANES OUTPATIEN 5 5 MARTIN VIEYRA T VISIT PSC 15 MINUTES OFFICE 50766 A Antonio LOWERY OUTPATIEN 4 4 MARTIN VIEYRA T VISIT PSC 15 MINUTES HOSPITAL [facility] - 4 4 [facility] - 4 4 [facility] OUTPATIEN [facility] T HOSPITAL [facility] - 3 3 [facility]EN [facility] - 3 3 [facility] OUTPATIEN INC T Emergency ELEAZAR LONGO MD (ER) 3 16:33 3 19:12 [facility] CHINO - 3 3 [facility] OUTPATIEN INC T EMERGENCY 06534 PING LONGO 3 3 EMERGENCY [facility] SERVICES T VISIT HIGH/URGE NT SEVERITY EMERGENCY 35355 [place] 3 3 [facility] DEPARTMEN INC T VISIT LOW/MODER SEVERITY HOME NURSES HEALTH, 3 3 REGISTRY OTHER HOME [facility]SES HEALTH, 3 3 REGISTRY OUTPATIEN & HOME HE T Emergency ELEAZAR Sanon (ER) 3 11:30 3 12:13 [facility] Jovany EMERGENCY 56754 PING SANON DEPT 3 3 EMERGENCY [facility] VISIT SERVICES HIGH SEVERITY& THREAT FUNCJ HOME NURSES HEALTH, 3 3 REGISTRY OTHER [facility] HOME NURSES HEALTH, 3 3 REGISTRY OUTPATIEN & HOME HE [facility] CHINO - 3 3 [facility] OUTPATIEN INC T HOME NURSES HEALTH, 3 3 REGISTRY OTHER [facility] HOME NURSES HEALTH, 3 3 REGISTRY OUTPATIEN & HOME HE T HOME NURSES HEALTH, 3 3 REGISTRY OUTPATIEN & HOME HE T HOME NURSES HEALTH, 3 3 REGISTRY OUTPATIEN & HOME HE T HOME NURSES HEALTH, 3 3 REGISTRY OTHER [facility] - 3 3 [facility]EN [facility] - 3 3 [facility] OUTPATIEN INC T Emergency ELEAZAR Thompson MD (ER) 3 21:05 3 21:44 [facility] EMERGENCY 08592 CHINO 3 3 [facility] DEPARTMEN INC T VISIT MODERATE SEVERITY HOSPITAL [facility] - 3 3 [facility] OUTPATIEN INC T HOME NURSES HEALTH, 3 3 REGISTRY OTHER HOME [facility] CHINO - 3 3 [facility] OUTPATIEN INC T HOME NURSES HEALTH, 3 3 REGISTRY OUTPATIEN & HOME HE T HOME NURSES HEALTH, 3 3 REGISTRY OUTPATIEN & HOME HE T HOME NURSES HEALTH, 3 3 REGISTRY OTHER [facility] NURSES HEALTH, 3 3 REGISTRY OUTPATIEN & HOME HE T HOME NURSES HEALTH, 3 3 REGISTRY OUTPATIEN & HOME HE T HOME NURSES HEALTH, 3 3 REGISTRY OTHER [facility] NURSES HEALTH, 3 3 REGISTRY OUTPATIEN & HOME HE T HOME NURSES HEALTH, 3 3 REGISTRY OTHER [facility] NURSES HE[facility], 2 2 REGISTRY OTHER [facility]SES HEALTH, 2 2 REGISTRY OUTPATIEN & HOME HE T HOME NURSES HEALTH, 2 2 REGISTRY OTHER [facility] NURSES HEALTH, 2 2 REGISTRY OUTPATIEN & HOME HE T HOME NURSES HEALTH, 2 2 REGISTRY OTHER [facility] NURSES HE[facility], 2 2 REGISTRY OUTPATIEN & HOME HE T HOME NURSES HEALTH, 2 2 REGISTRY OTHER [facility] NURSES HEALTH, 2 2 REGISTRY OTHER [facility] NURSES HEALTH, 2 2 REGISTRY OUTPATIEN & HOME HE T HOME NURSES HEALTH, 2 2 REGISTRY OUTPATIEN & HOME HE T HOME NURSES HEALTH, 2 2 REGISTRY OTHER [facility] NURSES HEALTH, 2 2 REGISTRY OUTPATIEN & HOME HE T HOME NURSES HEALTH, 2 2 REGISTRY OTHER [facility] NURSES HEALTH, 2 2 REGISTRY OUTPATIEN & HOME HE T HOME NURSES HEALTH, 2 2 REGISTRY OTHER [facility] NURSES HEALTH, 2 2 REGISTRY OTHER [facility]SES HE[facility], 2 2 REGISTRY OUTPATIEN & HOME HE T HOME NURSES HEALTH, 2 2 REGISTRY OTHER [facility] OFFICE 52129 A Antonio MAGALLANES OUTPATIEN 2 2 MARTIN VIEYRA T VISIT PSC 25 MINUTES HOME NURSES HEALTH, 2 2 REGISTRY OUTPATIEN & HOME HE T HOME NURSES HEALTH, 2 2 REGISTRY OTHER [facility]SES HE[facility], 2 2 REGISTRY OUTPATIEN & HOME HE T HOME NURSES HEALTH, 2 2 REGISTRY OTHER [facility]SES HE[facility], 2 2 REGISTRY OUTPATIEN & HOME HE T OFFICE 93075 A Antonio MAGALLANES OUTPATIEN 2 2 MARTIN Heard VISIT PSC 15 MINUTES HOME NURSES HEALTH, 2 2 REGISTRY OTHER [facility]ES HE[facility], 2 2 REGISTRY OUTPATIEN & HOME HE T HOME NURSES HEALTH, 2 2 REGISTRY OTHER [facility] NURSES HEALTH, 2 2 REGISTRY OUTPATIEN & HOME HE T OFFICE 45288 A C TASHAJORDON VASQUEZ 2 2 SALAZAR MD T VISIT PSC 10 MINUTES HOME NURSES HEALTH, 2 2 REGISTRY OTHER [facility] OFFICE 56071 Kt VASQUEZ 2 2 MARTIN VIEYRA T VISIT PSC 15 MINUTES HOME NURSES HEALTH, 2 2 REGISTRY OTHER [facility] EMERGENCY 10738 PING SANON DEPT 2 2 EMERGENCY III CLAUDIO VISIT SERVICES HIGH SEVERITY& THREAT [facility] CHINO - 2 2 [facility] INPATIENT INC HOME NURSES HEALTH, 2 2 REGISTRY OTHER [facility] NURSES HEALTH, 2 2 REGISTRY OTHER [facility]ES [facility], 2 2 REGISTRY OTHER [facility] NURSES HEALTH, 1 1 REGISTRY OTHER [facility]ES HE[facility], 1 1 REGISTRY OTHER [facility] N[facility]SES HE[facility], 1 1 REGISTRY OUTPATIEN & HOME HE T HOME NURSES HEALTH, 1 1 REGISTRY OUTPATIEN & HOME HE T HOME NURSES HEALTH, 1 1 REGISTRY OTHER [facility] CHINO - 1 1 [facility] OUTPATIEN INC T HOME NURSES HEALTH, 1 1 REGISTRY OUTPATIEN & HOME HE T HOME NURSES HEALTH, 1 1 REGISTRY OUTPATIEN & HOME HE T HOME NURSES HEALTH, 1 1 REGISTRY OUTPATIEN & HOME HE T HOME NURSES HEALTH, 1 1 REGISTRY OUTPATIEN & HOME HE T HOME NURSES HEALTH, 1 1 REGISTRY OUTPATIEN & HOME HE T OFFICE 39713 Kt VASQUEZ 1 1 MARTIN VIEYRA T VISIT PSC 15 MINUTES HOME NURSES HEALTH, 1 1 REGISTRY OUTPATIEN & HOME HE T HOME NURSES HEALTH, 1 1 REGISTRY OUTPATIEN & HOME HE T [facility] - 1 1 [facility] OUTPATIEN INC T HOME NURSES HEALTH, 1 1 REGISTRY OUTPATIEN & HOME HE T HOME NURSES HEALTH, 1 1 REGISTRY OUTPATIEN & HOME HE T HOME NURSES HEALTH, 1 1 REGISTRY OUTPATIEN & HOME HE T HOME NURSES HEALTH, 1 1 REGISTRY OUTPATIEN & HOME HE T HOME NURSES HEALTH, 1 1 REGISTRY OUTPATIEN & HOME HE T HOME NURSES HEALTH, 1 1 REGISTRY OUTPATIEN & HOME HE T HOME NURSES HEALTH, 1 1 REGISTRY OUTPATIEN & HOME HE T OFFICE 95241 A C TASHA ELPIDIO OUTPATIEN 1 1 MARTIN VIEYRA T VISIT PSC 25 MINUTES [facility], 1 1 [facility], 0 0 [facility] OUTPATIEN & HOME HE T OFFICE [id number] A C TASHA ELPIDIO OUTPATIEN 0 0 [facility] VIEYRA T VISIT PSC 15 [facility]UTES [facility], 0 0 [facility] OUTPATIEN & HOME [facility] T [facility], 0 0 [facility] OUTPATIEN & HOME HE T OFFICE [id number] A C OUTPATIEN 0 0 MARTIN VIEYRA T VISIT PSC 25 MINUTES [facility], 0 0 [facility], 0 0 [facility] OUTPATIEN & HOME [facility] T [facility], 0 0 [facility] OUTPATIEN & HOME HE T OFFICE [id number] A Antonio MONSONES, OUTPATIEN 0 0 MARTIN Meraz T VISIT PSC 15 MINUTES [facility], 0 0 [facility] OUT[facility], 0 0 [facility] OUTPATIEN & HOME T [facility]AL[facility] OFFICE [id number] A C TASHA, OUTPATIEN 0 0 MARTIN Meraz T VISIT PSC 25 MINUTES [facility], 0 0 [facility] OUTPATIEN & [facility] T [facility], 0 0 [facility] OUTPATIEN & [facility], 0 0 [facility] OUTPATIEN & [facility], 0 0 [facility] OUTPATIEN & HOME T [facility], 9 9 [facility]RY OUTPATIEN & HOME T [facility], 9 9 [facility]RY OUTPATIEN & HOME T [facility], 9 9 REGISTRY OUTPATIEN & [facility], 9 9 REGISTRY OUTPATIEN & [facility], 9 9 REGISTRY OUTPATIEN & [facility], 9 9 REGISTRY OUTPATIEN & [facility], 9 9 [facility]RY OUTPATIEN & HOME T [facility], 9 9 [facility]RY OUTPATIEN & HOME T [facility], 9 9 [facility]ISTRY OUTPATIEN & HOME T HEALH OFFICE [id number] ELIJAH STEEL 9 9 MARTIN Heard VISIT PSC 15 MINUTES [facility], 9 9 [facility]RY OUTPATIEN & HOME T [facility], 8 8 [facility]ISTRY OUTPATIEN & HOME T HEALH OFFICE [id number] Kt DOWNS OUTPATIEN 8 8 MARTIN Heard VISIT PSC 15 MINUTES [facility], 8 8 [facility]ISTRY OUTPATIEN & HOME T [facility], 8 8 [facility]ISTRY OUTPATIEN & HOME T [facility], 8 8 REGISTRY OUTPATIEN & HOME T HEALH OFFICE [id number] Kt DOWNS OUTPATIEN 8 8 MARTIN Heard VISIT PSC 15 MINUTES [facility], 8 8 REGISTRY OUTPATIEN & HOME T [facility], 8 8 REGISTRY OUTPATIEN & HOME T [facility], 8 8 REGISTRY OUTPATIEN & HOME T [facility], 8 8 REGISTRY OUTPATIEN & HOME T [facility], 8 8 REGISTRY OUTPATIEN & HOME T [facility], 8 8 REGISTRY OUTPATIEN & HOME T [facility], 8 8 REGISTRY OUTPATIEN & [facility] T [facility], 8 8 [facility]ISTRY OUTPATIEN & [facility] T [facility], 8 8 REGISTRY OUTPATIEN & HOME T HEALH OFFICE [id number] Kt DOWNS OUTPATIEN 8 8 MARTIN Heard VISIT PSC 25 MINUTES [facility], 8 8 REGISTRY OUTPATIEN & HOME T HEALH
--- OUTSIDE RECORDS SUMMARY | 2017-04-26 00:35 | External Medical Summary Rpt | CCD ---
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 [facility] HIGH MEDICAL MEDICAL CALIBRATO SUPPLY SUPPLY R SOLUTION/ CHIPS PHYSICAL 65676 CHINO MAGANA THERAPY 4 [facility] EVALUATIO INC INC N THERAPEUT 36632 CHINO MAGANA IC PX 1/> 4 [facility] AREAS INC INC EACH 15 MIN EXERCISES RADEX 81171 [facility] JOHNSONMICHAEL WRIST 4 MEDICAL JOYCELYN COMPLETE IMAGING MINIMUM 3 ASS VIEWS RADEX 89417 [place] MICHAEL WRIST 3 MEDICAL JOYCELYN COMPLETE IMAGING MINIMUM 3 ASS VIEWS APPLICATI 60053 [facility] ON CAST 3 PHYSICIAN JAM ELBOW S GROUP FINGER SHORT ARM CAST Q4010 [facility] SUPPLIES 3 PHYSICIAN JAM SHORT ARM S GROUP CAST ADULT FIBERGLAS S RADEX 18179 CHINO GALEON WRIST 3 [facility] COMPLETE INC INC MINIMUM 3 VIEWS RADEX 30362 [place] MICHAEL WRIST 2 3 MEDICAL JOYCELYN VIEWS IMAGING ASS LANCETS A4259 UNITED UNITED PER BOX 3 [place] STATES OF [facility] MEDICAL MEDICAL SUPPLY SUPPLY NORMAL A4256 [facility] AND [address] [facility] HIGH MEDICAL MEDICAL CALIBRATO SUPPLY SUPPLY R SOLUTION/ CHIPS BLD GLU A4253 UNITED UNITED TEST/REAG [address] [facility] T [facility] HOME BLD SUPPLY SUPPLY GLU SPRING-PO A4258 UNITED [facility] MEDICAL MEDICAL FOR SUPPLY SUPPLY LANCET EACH CLTX DSTL 93149 [facility] RADIAL 3 PHYSICIAN JAM FX/EPIPHY S GROUP SL SEP W/O MANJ CAST Q4010 [facility] SUPPLIES 3 PHYSICIAN JAM SHORT ARM S GROUP CAST ADULT FIBERGLAS S RADEX 96859 CHINO MAGANA WRIST 3 [facility] COMPLETE INC INC MINIMUM 3 VIEWS RADEX 50634 [facility] MICHAEL HAND 2 3 MEDICAL JOYCELYN VIEWS IMAGING ASS RADEX 09911 CHINO GALEON HAND 3 [facility] MINIMUM 3 INC INC VIEWS RADEX 95352 CHINO GALEON ELBOW 3 [facility] COMPLETE INC INC MINIMUM 3 VIEWS APPLICATI 86065 [place] SHORT 3 EMERGENCY BRO ARM SERVICES SPLINT FOREARM-H AND STATIC LANCETS A4259 UNITED UNITED PER BOX 3 STATES STATES OF [facility] MEDICAL MEDICAL SUPPLY SUPPLY NORMAL A4256 UNITED [facility] AND [address] [facility] HIGH MEDICAL MEDICAL CALIBRATO SUPPLY SUPPLY R SOLUTION/ CHIPS BLD GLU A4253 UNITED UNITED TEST/REAG 3 [facility] STATES T [facility]ICAL HOME [...] [place] [address] [facility] HEAD/BRAI 3 MEDICAL MEDICAL N [...] HE PROD UNDWEAR/P ULLON LG EA RADEX 66360 CHINO MAGANA HAND 3 [facility] MEM [...] [facility] OF 100 E SUPPLY E SUPPLY [facility] BLD GLU A4253 US [place] TEST/REAG 3 [...] HOME HE /PAD/UNDG RMNT INCONT EA RADEX 56213 [place] MICHAEL HAND 3 MEDICAL JOYCELYN MINIMUM 3 IMAGING VIEWS ASS RADEX 63360 [place] MICHAEL ELBOW 2 3 MEDICAL JOYCELYN VIEWS IMAGING ASS RADEX 86019 [place] MICHAEL HAND 3 MEDICAL JOYCELYN MINIMUM 3 IMAGING VIEWS ASS APPLICATI 54191 CHINO MAGANA ON SHORT 3 [facility] ARM INC INC SPLINT FOREARM-H AND STATIC LANCETS A4259 UNITED UNITED PER BOX 3 STATES STATES OF 100 MEDICAL MEDICAL SUPPLY SUPPLY NORMAL A4256 UNITED REHOBOTH LOW AND 3 STATES STATES HIGH MEDICAL MEDICAL CALIBRATO SUPPLY SUPPLY R SOLUTION/ CHIPS [place]- A4258 UNITED UNITED WERED 3 STATES STATES DEVICE MEDICAL MEDICAL FOR SUPPLY SUPPLY LANCET EACH BLD GLU A4253 [facility] TEST/REAG 3 STATES STATES T [facility] BLD SUPPLY SUPPLY GLU MON-50 REPL BEV A4233 [facility] ALKALINE 3 [facility] STATES NOT J MEDICAL MEDICAL CELL DK SUPPLY SUPPLY BG MON OWND PT DISPBL T4535 NURSES NURSES LINER/SAKINA 3 REGISTRY REGISTRY ELD/GUARD & HOME HE & HOME HE /PAD/UNDG RMNT INCONT EA NON-INVAS 15280 EDGAR RODRIGUEZ BAIRON 3 MEDICAL JOYCELYN PHYSIOLOG [...] HE DISPOSABL E UNDPAD LARGE EA BASIC 07726 [facility] QUEST METABOLIC 3 DIAGNOSTI DIAGNOSTI PANEL [...] MEDICAL MEDICAL HT EQUIPME EQUIPME [facility] A4258 ARRIVA ARRIVA WERED 2 MEDICAL WOUND/OSTOMY CLINICAL NURSE SPECIALIST FOR LANCET EACH LANCETS A4259 ARRIVA ARRIVA [...] ULLON LG EA REPL BEV A4235 [facility] [address] [facility] MED NECES MEDICAL MEDICAL DK BG SUPPLY SUPPLY MON OWN PT EA PO A4258 UNITED REHOBOTH WERED 2 [facility] STATES DEVICE MEDICAL MEDICAL FOR SUPPLY SUPPLY LANCET EACH LANCETS A4259 UNITED REHOBOTH PER BOX 2 STATES STATES OF [facility] MEDICAL MEDICAL SUPPLY SUPPLY NORMAL A4256 UNITED REHOBOTH LOW AND [address] [facility] HIGH MEDICAL MEDICAL CALIBRATO SUPPLY SUPPLY R SOLUTION/ CHIPS BLD GLU A4253 [facility] TEST/REAG 2 [facility] STATES T [facility] HOME [...] & HOME HE PROD UNDWEAR/P ULLON LG [facility] K0004 ALEC ALEC STRENGTH 2 HOME HOME [...] & HOME HE PROD UNDWEAR/P ULLON LG [facility] K0004 ALEC ALEC STRENGTH 2 HOME HOME [...] HOME HE /PAD/UNDG RMNT INCONT EA ADLT [facility] T4527 NURSES NURSES DISPBL 2 REGISTRY REGISTRY INCONT & HOME HE & HOME HE PROD UNDWEAR/P ULLON [facility] A4259 UNITED UNITED PER BOX 2 STATES STATES OF [facility] MEDICAL MEDICAL SUPPLY SUPPLY NORMAL A4256 UNITED REHOBOTH LOW AND 2 STATES STATES HIGH MEDICAL [...] HOME HE /PAD/UNDG RMNT INCONT EA COLLECTIO 81514 A Antonio MAGALLANES N VENOUS 2 MARTIN VIEYRA BLOOD PSC VENIPUNCT URE LIPID 19108 A Antonio ANDRADE ELPIDIO PANEL 2 MARTIN VIEYRA PSC BASIC 04299 [facility]ST METABOLIC 2 DIAGNOSTI DIAGNOSTI PANEL CS CS CALCIUM TOTAL GLUCOSE 21058 A Antonio MAGALLANES QUANTITAT 2 MARTIN VIEYRA BAIRON BLOOD [facility] XCPT REAGENT STRIP HEMOGLOBI 92874 A Antonio MAGALLANES N 2 MARTIN VIEYRA GLYCOSYLA PSC COLIN A1C HIGH K0004 ALEC ALEC STRENGTH 2 HOME HOME [facility] HT EQUIPME EQUIPME WHEELCHAI R ADLT SZ T4527 NURSES NURSES DISPBL 2 REGISTRY REGISTRY INCONT & HOME HE & HOME HE PROD UNDWEAR/P ULLON LG EA SPRING- A4258 ARRIVA ARRIVA WERED 2 MEDICAL WOUND/OSTOMY CLINICAL NURSE SPECIALIST FOR LANCET EACH REPL BVE A4233 ARRIVA ARRIVA ALKALINE 2 MEDICAL MEDICAL [...] UNDWEAR/P ULLON LG EA SPRING-PO A4258 UNITED REHOBOTH WERED 2 [facility] STATES DEVICE MEDICAL MEDICAL FOR SUPPLY SUPPLY LANCET EACH REPL BEV A4235 [facility] LITHIUM 2 [facility] STATES MED NECES MEDICAL MEDICAL DK BG SUPPLY SUPPLY MON OWN PT EA BLD GLU A4253 [facility] TEST/REAG 2 [facility] STATES T [facility] HOME BLD SUPPLY SUPPLY GLU MON-50 NORMAL A4256 UNITED REHOBOTH LOW AND 2 [facility] STATES HIGH MEDICAL MEDICAL CALIBRATO SUPPLY SUPPLY R SOLUTION/ CHIPS LANCETS A4259 [facility] PER BOX 2 [facility] STATES OF [facility] MEDICAL MEDICAL SUPPLY SUPPLY DISPBL T4535 NURSES NURSES LINER/SAKINA 2 REGISTRY REGISTRY ELD/GUARD & HOME HE & HOME HE /PAD/UNDG RMNT INCONT EA ADLT [facility] T4527 NURSES NURSES DISPBL 2 REGISTRY REGISTRY INCONT & HOME HE & HOME HE PROD UNDWEAR/P ULLON LG [facility] K0004 ALEC ESPINOSARELL STRENGTH 2 HOME HOME [facility] EQUIPME EQUIPME WHEELCHAI [facility] K0004 ALEC ESPINOSARELL STRENGTH 2 HOME HOME [facility] HT EQUIPME EQUIPME WHEELCHAI [facility] 71553 Kt ANDRADE ELPIDIO DISCHARGE 2 MARTIN VIEYRA DAY PSC MANAGEMEN T 30 MIN/< GENERAL E2601 ALEC MICHAEL WHLCHAIR 2 HOME HOME SEAT MEDICAL MEDICAL CUSHN EQUIPME EQUIPME WIDTH < 22 IN DEPTH COMMODE E0163 ALEC MICHAEL CHAIR 2 HOME HOME MOBILE OR MEDICAL MEDICAL EQUIPME EQUIPME STATIONAR Y W/FIXED ARMS SBSQ 82679 A [facility] 2 MARTIN VIEYRA CARE/DAY PSC 15 MINUTES INITIAL 45535 A [facility] 2 MARTIN VIEYRA CARE/DAY PSC 70 MINUTES ECG 10568 CHINO MATT ROUTINE 2 [facility] W/LEAST P 12 LDS I&R ONLY 3D 53968 EDGAR JOHNSONUTCHER RENDERING 2 MEDICAL JOYCELYN IMAGING W/INTERP& [place] [address] EDGAR RODRIGUEZ CERVICAL 2 MEDICAL JOYCELYN SPINE W/O IMAGING CONTRAST ASS MATERIAL LANCETS A4259 GLOBAL GLOBAL PER BOX 2 MEDICAL MEDICAL OF 100 DIRECT DIRECT BLD GLU A4253 GLOBAL GLOBAL TEST/REAG 2 MEDICAL MEDICAL T STRIPS DIRECT DIRECT HOME BLD GLU WED-50 BLD GLU A4253 UNITED UNITED TEST/REAG 2 [facility] STATES T [facility] MEDICAL MEDICAL HOME BLD SUPPLY SUPPLY GLU MON-50 LANCETS A4259 UNITED UNITED PER BOX [address] [place] [address] MEDICAL MEDICAL SUPPLY SUPPLY NORMAL A4256 UNITED REHOBOTH LOW AND [address] [facility] HIGH MEDICAL MEDICAL CALIBRATO SUPPLY SUPPLY R [...] HOME HE /PAD/UNDG RMNT INCONT EA TRANSFERA 70822 CHINO MAGANA SE 1 [facility] ASPARTATE INC INC AMINO AST SGOT LIPID 31523 CHINO MAGANA PANEL 1 [facility] INC INC ADLT SZD T4527 NURSES NURSES DISPBL 1 REGISTRY REGISTRY INCONT & HOME HE & HOME HE PROD UNDWEAR/P ULLON LG EA DISPBL T4535 NURSES NURSES LINER/SAKINA 1 REGISTRY REGISTRY ELD/GUARD & HOME HE & HOME HE /PAD/UNDG RMNT INCONT EA SPRING-PO A4258 [facility] WERED [address] [facility] DEVICE MEDICAL MEDICAL FOR SUPPLY SUPPLY LANCET [...] STRIPS DIRECT DIRECT HOME BLD GLU WED-50 [facility] A4258 GLOBAL GLOBAL WERED 1 MEDICAL WOUND/OSTOMY CLINICAL NURSE SPECIALIST DIRECT DIRECT FOR LANCET EACH ADLT [facility] T4527 NURSES NURSES DISPBL 1 REGISTRY REGISTRY [...] HOME HE /PAD/UNDG RMNT INCONT EA ADLT [facility] T4527 NURSES NURSES DISPBL 1 REGISTRY REGISTRY INCONT & HOME HE & HOME HE PROD UNDWEAR/P ULLON LG [facility] A4258 DIRECT DIRECT WERED 1 DIABETIC [...] HOME BLD INC INC GLU MON-50 LIPID 26320 CHINO MAGANA PANEL 1 [facility] INC INC HEMOGLOBI 05331 CHINO MAGANA N 1 [facility] GLYCOSYLA INC INC COLIN A1C ADLT [facility] T4527 NURSES NURSES DISPBL 1 REGISTRY REGISTRY INCONT & HOME HE & HOME HE PROD UNDWEAR/P ULLON LG EA DISPBL T4535 NURSES NURSES LINER/SAKINA 1 REGISTRY REGISTRY ELD/GUARD & HOME HE & HOME HE /PAD/UNDG RMNT INCONT EA DISPBL T4535 NURSES NURSES LINER/SAKINA 1 REGISTRY REGISTRY ELD/GUARD & HOME HE & HOME HE /PAD/UNDG RMNT INCONT EA ADLT [facility] T4527 NURSES NURSES DISPBL 1 REGISTRY REGISTRY INCONT & HOME HE & HOME HE PROD UNDWEAR/P ULLON LG [facility] A4258 DOCTOR DOCTOR WERED 1 DIABETIC [...] spring-PO A4258 ARRIVA ARRIVA WERED 1 MEDICAL WOUND/OSTOMY CLINICAL NURSE SPECIALIST FOR LANCET EACH BLD GLU A4253 DOCTOR [...] 1 [facility] 100 [facility] NORMAL A4256 DIABETES DIABETES LOW AND 1 [facility] HIGH [facility] CALIBRATO R SOLUTION/ CHIPS COLLECTIO 81722 A Antonio ANDRADE ELPIDIO N VENOUS 1 MARTIN VIEYRA BLOOD PSC VENIPUNCT URE URINLS 36876 A Antonio ANDRADE ELPIDIO DIP 1 MARTIN VIEYRA STICK/TAB PSC LET REAGNT NON-AUTO MICRSCPY GLUCOSE 33776 A Antonio ANDRADE ELPIDIO QUANTITAT 1 MARTIN [...] HE PROD UNDWEAR/P ULLON LG EA BREAST 75786 [place] MICHAEL REAL 0 MEDICAL JOYCELYN TIME IMAGING W/IMAGE ASS DOCUMENTA TION DIAGNOSTI G0206 [place] MICHAEL C 0 MEDICAL JOYCELYN MAMMOGRAP IMAGING [...] INC HY DANIA INCL CAD WHEN PERFORMD 11527 CHINO MAGANA AIDED 0 [facility] MEM [...] HE PROD UNDWEAR/P ULLON LG EA HEMOGLOBI 40454 LAB SHIN LAB SHIN N 0 AMERIC AMERIC GLYCOSYLA HOLDING HOLDING COLIN A1C BLOOD 42700 LAB SHIN LAB SHIN COUNT 0 AMERIC AMERIC COMPLETE HOLDING HOLDING AUTO&AUTO DIFRNTL WBC BASIC 94415 LAB SHIN LAB SHIN METABOLIC 0 AMERIC AMERIC PANEL HOLDING HOLDING CALCIUM TOTAL LIPID 41179 LAB SHIN LAB SHIN PANEL 0 AMERIC AMERIC HOLDING HOLDING TRANSFERA 03064 LAB SHIN LAB SHIN SE 0 AMERIC AMERIC ASPARTATE [place] [address] LAB SHIN LAB SHIN THYROID 0 AMERIC AMERIC STIMULATI HOLDING HOLDING NG HORMONE TSH COLLECTIO 86738 A C SALAZAR A N VENOUS 0 [...] MEDICAL MEDICAL HIGH CALIBRATO R SOLUTION/ CHIPS [facility] A4258 ARRIVA ARRIVA WERED 0 MEDICAL WOUND/OSTOMY CLINICAL NURSE SPECIALIST FOR LANCET EACH HOME E0607 ARRIVA ARRIVA BLOOD 0 MEDICAL MEDICAL GLUCOSE MONITOR URNLS DIP 82799 CHINO MAGANA 0 [facility] STICK/TAB INC INC LET REAGENT AUTO MICROSCOP Y CULTURE 23409 CHINO MAGANA BACTERIAL 0 [facility] MEM [...] PROD UNDWEAR/P ULLON LG EA GLUC BLD 93751 Kt ANDRADE, GLUC MNTR 0 MARTIN AVILA [...] T STRIPS HOME BLD GLU MON-50 TRANSFERA 33405 [facility] SE 0 [facility] ASPARTATE AMINO AST SGOT CULTURE 61978 [facility] BACTERIAL 0 [facility] QUANTTATI VE COLONY COUNT URINE COLLECTIO 63286 A Antonio ANDRADE, N VENOUS 0 MARTIN Meraz BLOOD PSC VENIPUNCT URE BASIC 54434 [facility] METABOLIC 0 [facility] PANEL CALCIUM TOTAL LIPID 03874 [facility] PANEL 0 [facility] HEMOGLOBI 58600 [facility] N 0 [facility] GLYCOSYLA COLIN A1C URINLS 27907 A Antonio ANDRADE, DIP 0 MARTIN Meraz STICK/TAB PSC LET REAGNT NON-AUTO MICRSCPY ALBUMIN 91899 A Antonio ANDRADE, URINE 0 MARTIN Meraz [...] REGISTRY ELD/GUARD & HOME & HOME /PAD/UNDG [facility] RMNT INCONT EA LANCETS A4259 NR HOME NR HOME PER BOX 9 INFUSION INFUSION OF 100 BLD GLU A4253 NR HOME NR HOME TEST/REAG 9 INFUSION INFUSION T [facility]IPS HOME BLD GLU MON-50 ADLT SZD T4526 NURSES NURSES DISPBL 9 REGISTRY REGISTRY INCONT & HOME & HOME PROD [facility] UNDWEAR MED EA DISPBL T4535 NURSES NURSES LINER/SAKINA 9 REGISTRY REGISTRY ELD/GUARD & HOME & HOME /PAD/UNDG [facility] RMNT INCONT EA BLD GLU A4253 NR HOME NR HOME TEST/REAG 9 INFUSION INFUSION T [facility]IPS HOME BLD GLU MON-50 BLD GLU A4253 NR HOME NR HOME TEST/REAG 9 INFUSION INFUSION T [facility]IPS HOME BLD GLU MON-50 LANCETS A4259 NR HOME NR HOME PER BOX 9 INFUSION INFUSION OF 100 URINLS 03335 A C TASHA, DIP 9 MARTIN PORTILLO A STICK/TAB PSC LET REAGNT NON-AUTO MICRSCPY DIRECT G0154 NURSES NURSES SKILL 9 REGISTRY REGISTRY NURSE & HOME & HOME SERVICES [facility] E EA 15 MIN DISPBL T4535 NURSES NURSES LINER/SAKINA 9 REGISTRY REGISTRY ELD/GUARD & HOME & HOME /PAD/UNDG [facility] RMNT INCONT EA BLD GLU A4253 NR HOME NR HOME TEST/REAG 9 INFUSION INFUSION T [facility]IPS HOME BLD GLU MON-50 DISPBL T4535 NURSES NURSES LINER/SAKINA 8 REGISTRY REGISTRY ELD/GUARD & HOME & HOME /PAD/UNDG [facility] RMNT INCONT EA DIRECT G0154 NURSES NURSES SKILL 8 REGISTRY REGISTRY NURSE & HOME & HOME SERVICES [facility] E EA 15 MIN DIRECT G0154 NURSES NURSES SKILL 8 REGISTRY REGISTRY NURSE & HOME & HOME SERVICES [facility] E EA 15 MIN DISPBL T4535 NURSES NURSES LINER/SAKINA 8 REGISTRY REGISTRY ELD/GUARD & HOME & HOME /PAD/UNDG [facility] RMNT INCONT EA LANCETS A4259 NR HOME NR HOME PER BOX 8 INFUSION INFUSION OF 100 BLD GLU A4253 NR HOME NR HOME TEST/REAG 8 INFUSION INFUSION T [facility]IPS HOME BLD GLU MON-50 COLLECTIO 01642 Kt DOWNS N VENOUS 8 MARTIN Alvarez BLOOD PSC VENIPUNCT URE GLUCOSE 49011 Kt DOWNS QUANTITAT 8 MARTIN Alvarez BAIRON BLOOD PSC XCPT REAGENT STRIP DIRECT G0154 NURSES NURSES SKILL 8 REGISTRY REGISTRY [facility] E EA 15 MIN DIRECT G0154 NURSES NURSES SKILL 8 REGISTRY REGISTRY NURSE & HOME & HOME SERVICES [facility] E EA 15 MIN LANCETS A4259 NR HOME NR HOME PER BOX 8 INFUSION INFUSION OF 100 BLD GLU A4253 NR HOME NR HOME TEST/REAG 8 INFUSION INFUSION T STRIPS HOME BLD GLU MON-50 DISPBL T4535 NURSES NURSES LINER/SAKINA 8 REGISTRY REGISTRY ELD/GUARD & HOME & HOME /PAD/UNDG [facility] RMNT INCONT EA DIRECT G0154 NURSES NURSES SKILL 8 REGISTRY REGISTRY NURSE & HOME & HOME SERVICES [facility] E EA 15 MIN DIRECT G0154 NURSES NURSES SKILL 8 REGISTRY REGISTRY NURSE & HOME & HOME SERVICES [facility] E EA 15 MIN BLD GLU A4253 NR HOME NR HOME TEST/REAG 8 INFUSION INFUSION T [facility]IPS HOME BLD GLU MON-50 DISPBL T4535 NURSES NURSES LINER/SAKINA 8 REGISTRY REGISTRY ELD/GUARD & HOME & HOME /PAD/UNDG [facility] RMNT INCONT EA DIRECT G0154 NURSES NURSES SKILL 8 REGISTRY REGISTRY NURSE & HOME & HOME SERVICES [facility] E EA 15 MIN DIRECT G0154 NURSES NURSES SKILL 8 REGISTRY REGISTRY NURSE & HOME & HOME SERVICES [facility] E EA 15 MIN DIRECT G0154 NURSES NURSES SKILL 8 REGISTRY REGISTRY [facility] MIN DISPBL T4535 NURSES NURSES LINER/SAKINA 8 REGISTRY REGISTRY ELD/GUARD & HOME & HOME /PAD/UNDG [facility] RMNT INCONT EA LANCETS A4259 NR HOME NR HOME PER BOX 8 INFUSION INFUSION OF 100 BLD GLU A4253 NR HOME NR HOME TEST/REAG 8 INFUSION INFUSION T STRIPS HOME BLD GLU MON-50 DISPBL T4535 NURSES NURSES LINER/SAKINA 8 REGISTRY REGISTRY ELD/GUARD & HOME & HOME /PAD/UNDG [facility] RMNT INCONT EA DIRECT G0154 NURSES NURSES SKILL 8 REGISTRY REGISTRY [facility] MIN DIRECT G0154 NURSES NURSES SKILL 8 REGISTRY REGISTRY [facility] 15 MIN DISPBL T4535 NURSES NURSES LINER/SAKINA 8 REGISTRY REGISTRY ELD/GUARD & HOME & HOME /PAD/UNDG [facility] RMNT INCONT EA BLD GLU A4253 NR HOME NR HOME TEST/REAG 8 INFUSION INFUSION T STRIPS HOME BLD GLU MON-50 LANCETS A4259 NR HOME NR HOME PER BOX 8 INFUSION INFUSION OF 100 DIRECT G0154 NURSES NURSES SKILL 8 REGISTRY REGISTRY [facility] MIN DIRECT G0154 NURSES NURSES SKILL 8 REGISTRY REGISTRY [facility] MIN DIRECT G0154 NURSES NURSES SKILL 8 REGISTRY REGISTRY [facility] MIN BLD GLU A4253 NR HOME NR HOME TEST/REAG 8 INFUSION INFUSION T STRIPS HOME BLD GLU MON-50 DISPBL T4535 NURSES NURSES LINER/SAKINA 8 REGISTRY REGISTRY ELD/GUARD & HOME & HOME /PAD/UNDG [facility] RMNT INCONT EA DIRECT G0154 NURSES NURSES SKILL 8 REGISTRY REGISTRY [facility] DIRECT G0154 NURSES NURSES SKILL 8 REGISTRY REGISTRY NURSE & HOME & HOME SERVICES [facility] E EA 15 MIN DIRECT G0154 NURSES NURSES SKILL 8 REGISTRY REGISTRY NURSE & HOME & HOME SERVICES [facility] EA 15 MIN DIRECT G0154 NURSES NURSES SKILL 8 REGISTRY REGISTRY NURSE & HOME & HOME SERVICES [facility] E EA 15 MIN DIRECT G0154 NURSES NURSES SKILL 8 REGISTRY REGISTRY NURSE & HOME & HOME SERVICES [facility] E EA 15 MIN DIRECT G0154 NURSES NURSES SKILL 8 REGISTRY REGISTRY [facility]URSE & HOME & HOME SERVICES [facility] E EA 15 MIN [id number] NR HOME NR HOME WERED 8 INFUSION INFUSION DEVICE FOR LANCET EACH DISPBL T4535 NURSES NURSES LINER/SAKINA 8 REGISTRY REGISTRY ELD/GUARD & HOME & HOME /PAD/UNDG [facility] RMNT INCONT EA LANCETS A4259 NR [...] REGISTRY NURSE & HOME & HOME SERVICES [facility] E EA 15 MIN DISPBL T4535 NURSES NURSES LINER/SAKINA 8 REGISTRY REGISTRY ELD/GUARD & HOME & HOME /PAD/UNDG [facility] RMNT INCONT EA DIRECT G0154 NURSES NURSES SKILL 8 REGISTRY REGISTRY NURSE & HOME & HOME SERVICES [facility] EA 15 MIN DIRECT G0154 NURSES NURSES SKILL 8 REGISTRY REGISTRY [facility]URSE & HOME & HOME [facility] E EA 15 MIN DIRECT G0154 NURSES NURSES SKILL 8 REGISTRY REGISTRY NURSE & HOME & HOME SERVICES [facility] E EA 15 MIN BLD GLU A4253 NR HOME NR HOME TEST/REAG 8 INFUSION INFUSION T STRIPS HOME BLD GLU MON-50 LANCETS A4259 NR HOME NR HOME PER BOX 8 INFUSION INFUSION OF 100 DIRECT G0154 NURSES NURSES SKILL 8 REGISTRY REGISTRY NURSE & HOME & HOME SERVICES [facility] EA 15 MIN DIRECT G0154 NURSES NURSES SKILL 8 REGISTRY REGISTRY NURSE & HOME & HOME SERVICES [facility] EA 15 MIN DIRECT G0154 NURSES NURSES SKILL 8 REGISTRY REGISTRY NURSE & HOME & [facility] E EA 15 MIN DISPBL [id number] NURSES NURSES LINER/SAKINA 8 REGISTRY REGISTRY ELD/GUARD & HOME & HOME /PAD/UNDG [facility] RMNT INCONT EA DIRECT G0154 NURSES NURSES SKILL 8 REGISTRY REGISTRY NURSE & HOME & [facility] SERVICES [facility] E EA 15 MIN DIRECT G0154 NURSES NURSES SKILL 8 REGISTRY REGISTRY NURSE & HOME & HOME SERVICES [facility] E EA 15 MIN DISPBL [id number] NURSES NURSES LINER/SAKINA 8 REGISTRY REGISTRY ELD/GUARD & HOME & HOME /PAD/UNDG [facility] RMNT INCONT EA DIRECT G0154 NURSES NURSES SKILL 8 REGISTRY REGISTRY NURSE & HOME & HOME SERVICES [facility] E EA 15 MIN DIRECT G0154 NURSES NURSES SKILL 8 REGISTRY REGISTRY NURSE & HOME & HOME SERVICES [facility] E EA 15 MIN BLD GLU [id number] NR HOME NR HOME TEST/REAG 8 INFUSION INFUSION T STRIPS HOME BLD GLU MON-50 DISPBL [id number] NURSES NURSES LINER/SAKINA 8 REGISTRY REGISTRY ELD/GUARD & HOME & HOME /PAD/UNDG [facility] RMNT INCONT EA DIRECT G0154 NURSES NURSES SKILL 8 REGISTRY REGISTRY NURSE & HOME & HOME SERVICES [facility] E EA 15 MIN DIRECT G0154 NURSES NURSES SKILL 8 REGISTRY REGISTRY NURSE & HOME & HOME SERVICES [facility] E EA 15 MIN DIRECT G0154 NURSES NURSES SKILL 8 REGISTRY REGISTRY NURSE & HOME & HOME SERVICES [facility] E EA 15 MIN DIRECT G0154 NURSES NURSES SKILL 8 REGISTRY REGISTRY NURSE & HOME & HOME SERVICES [facility] HH/HOSPIC E EA 15 MIN DIRECT G0154 NURSES NURSES SKILL 8 REGISTRY REGISTRY NURSE & HOME & HOME SERVICES [facility] HH/HOSPIC E EA 15 MIN DIRECT G0154 NURSES NURSES SKILL 8 REGISTRY REGISTRY NURSE & HOME & HOME SERVICES [facility] HH/HOSPIC E EA 15 MIN DISPBL T4535 NURSES NURSES LINER/SAKINA 8 REGISTRY REGISTRY ELD/GUARD & HOME & HOME /PAD/UNDG [facility] RMNT INCONT EA Encounters Encounter Start End Date Code Location Performer Type Date OFFICE 46314 [place] [facility] OUTPATIEN 7 7 MEDICAL T NEW 60 SERV MINUTES [facility] - 7 7 [facility] OUTPATIEN E HOSPITALS OFFICE 95214 [facility] OUTPATIEN 7 7 PHYSICIAN A T VISIT S GROUP 15 MINUTES [facility] CHINO - 7 7 [facility] OUTPATIEN [facility] - 7 7 [facility] OUTPATIEN [facility]INO - 7 7 [facility] OUTPATIEN [facility] 76945 [facility] DEPT 7 7 PHYSICIAN VISIT S, PLLC HIGH SEVERITY& THREAT [facility] CHINO - OTHER 7 7 [facility] OTHER 7 7 [facility]INO - 7 7 [facility] OUTPATIEN INC [facility]INO - 7 7 [facility] OUTPATIEN [facility]INO - 7 7 [facility]PATIEN [facility] OFFICE 90147 CANDELARIA HAYNES OUTPATIEN 6 6 [facility] 10 MINUTES EMERGENCY 76517 [facility] 6 6 [facility]PARTMEN [facility] T VISIT LOW/MODER SEVERITY HOSPITAL [facility] - 6 6 [facility] OUTPATIEN INC T EMERGENCY 09354 PATI THOMPSON 6 6 PHYSICIAN [facility] T VISIT HIGH/URGE NT SEVERITY OFFICE 10925 A Antonio MENON OUTPATIEN 6 6 MARTIN ROD T VISIT PSC 15 MINUTES OFFICE 32021 FALLIS CAROL OUTPATIEN 6 6 FERMIN RAMU T NEW 30 MINUTES OFFICE 91708 A Antonio MAGALLANES OUTPATIEN 6 6 MARTIN VIEYRA T VISIT PSC 15 MINUTES HOSPITAL [facility] - 6 6 N OUTPATIEN COMMUNTIY T HOSPITA EMERGENCY 24564 [facility] 6 6 [facility] T VISIT PHYS HIGH/URGE NT SEVERITY EMERGENCY 79123 [facility] 6 6 N DEPARTMEN COMMUNTIY T VISIT HOSPITA MODERATE SEVERITY EMERGENCY 95253 PATI RODRIGUEZ DEPT 6 6 PHYSICIAN JEREMIAS VISIT [facility] HIGH SEVERITY& THREAT FUNCJ OFFICE 43765 A Antonio RODRIGUEZ OUTPATIEN 6 6 MARTIN SMYTH T VISIT PSC 15 MINUTES OFFICE 48845 A Antonio MAGALLANES OUTPATIEN 6 6 MARTIN VIEYRA T VISIT PSC 25 MINUTES OFFICE 01875 A Antonio MAGALLANES OUTPATIEN 5 5 MARTIN VIEYRA T VISIT PSC 15 MINUTES OFFICE 33679 A Antonio LOWERY OUTPATIEN 4 4 MARTIN VIEYRA T VISIT PSC 15 MINUTES HOSPITAL [facility] - 4 4 [facility] - 4 4 [facility] OUTPATIEN [facility] T HOSPITAL [facility] - 3 3 [facility]EN [facility] - 3 3 [facility] OUTPATIEN INC T Emergency ELEAZAR LONGO MD (ER) 3 16:33 3 19:12 [facility] CHINO - 3 3 [facility] OUTPATIEN INC T EMERGENCY 73640 PING LONGO 3 3 EMERGENCY [facility] SERVICES T VISIT HIGH/URGE NT SEVERITY EMERGENCY 40376 [place] 3 3 [facility] DEPARTMEN INC T VISIT LOW/MODER SEVERITY HOME NURSES HEALTH, 3 3 REGISTRY OTHER HOME [facility]ES [facility], 3 3 REGISTRY OUTPATIEN & HOME HE T Emergency ELEAZAR Sanon (ER) 3 11:30 3 12:13 [facility] Jovany EMERGENCY 88038 PING SANON DEPT 3 3 EMERGENCY [facility] VISIT SERVICES HIGH SEVERITY& THREAT FUNCJ HOME NURSES HEALTH, 3 3 REGISTRY OTHER HOME [facility]SES HEALTH, 3 3 REGISTRY OUTPATIEN & HOME HE [facility] CHINO - 3 3 [facility] [...] Thompson MD (ER) 3 21:05 3 21:44 [facility] EMERGENCY 67598 [facility] 3 3 [facility] DEPARTMEN INC T VISIT MODERATE SEVERITY HOSPITAL [facility] - 3 3 [facility] OUTPATIEN INC T HOME NURSES HEALTH, 3 3 REGISTRY OTHER HOME [facility] CHINO - 3 3 MEM [...] 2 2 REGISTRY OTHER HOME [facility] OFFICE 06779 A Antonio MAGALLANES OUTPATIEN 2 2 MARTIN [...] REGISTRY OUTPATIEN & HOME HE T OFFICE 47295 A Antonio MAGALLANES OUTPATIEN 2 2 MARTIN Heard VISIT PSC 15 MINUTES HOME NURSES HEALTH, 2 2 REGISTRY OTHER [facility]SES HEALTH, 2 2 REGISTRY OUTPATIEN & HOME HE T HOME N[facility]SES HEALTH, 2 2 REGISTRY OTHER [facility]ES [facility], 2 2 REGISTRY OUTPATIEN & HOME HE T OFFICE 80375 A C TASHAJORDON VASQUEZ 2 2 SALAZAR MD T VISIT PSC 10 MINUTES HOME NURSES HEALTH, 2 2 REGISTRY OTHER HOME [facility] OFFICE 36183 Kt VASQUEZ 2 2 MARTIN VIEYRA T VISIT PSC 15 MINUTES HOME NURSES HEALTH, 2 2 REGISTRY OTHER HOME [facility] EMERGENCY 75307 PING SANON DEPT 2 2 EMERGENCY III CLAUDIO VISIT SERVICES HIGH SEVERITY& THREAT [facility] CHINO - 2 2 [facility] INPATIENT [...] HEALTH, 1 1 REGISTRY OTHER HOME [facility] CHINO - 1 1 MEM [...] REGISTRY OUTPATIEN & HOME HE T OFFICE 83352 Kt VASQUEZ 1 1 MARTIN VIEYRA T [...] REGISTRY OUTPATIEN & HOME HE T OFFICE 97691 A C TASHA ELPIDIO OUTPATIEN 1 1 MARTIN VIEYRA T VISIT PSC 25 MINUTES HOME NURSES HEALTH, 1 1 REGISTRY OUTPATIEN & HOME HE T [facility]OSP[facility] - 0 0 [facility] OUTPATIEN INC T HOME NURSES HEALTH, 0 0 REGISTRY OUTPATIEN & HOME HE T OFFICE 50130 A C TASHA ELPIDIO OUTPATIEN 0 0 MARTIN VIEYRA T VISIT PSC 15 MINUTES HOSPITAL [facility] - 0 0 [facility] OUTPATIEN INC T HOME NURSES HEALTH, 0 0 REGISTRY OUTPATIEN & HOME HE T HOME NURSES HEALTH, 0 0 REGISTRY OUTPATIEN & HOME HE T OFFICE 40630 A C OUTPATIEN 0 0 MARTIN VIEYRA T VISIT PSC 25 MINUTES HOME NURSES HEALTH, 0 0 REGISTRY OUTPATIEN & HOME HE T [facility]OSPITAL [facility] - 0 0 [facility] OUTPATIEN INC T HOME NURSES HEALTH, 0 0 REGISTRY OUTPATIEN & HOME HE T HOME NURSES HEALTH, 0 0 REGISTRY OUTPATIEN & HOME HE T OFFICE 12965 A Antonio MONSONES, OUTPATIEN 0 0 MARTIN Meraz T VISIT PSC 15 MINUTES HOME NURSES HEALTH, 0 0 REGISTRY OUTPATIEN & HOME T HEALH HOME NURSES HEALTH, 0 0 REGISTRY OUTPATIEN & HOME T HEALH OFFICE 53099 A C TASHA, OUTPATIEN 0 0 MARTIN [...] REGISTRY OUTPATIEN & HOME T HEALH OFFICE 74152 ELIJAH STEEL 9 9 MARTIN Heard VISIT PSC 15 MINUTES HOME NURSES HEALTH, 9 9 REGISTRY OUTPATIEN & HOME T HEALH HOME NURSES HEALTH, 8 8 REGISTRY OUTPATIEN & HOME T HEALH OFFICE 52081 Kt DOWNS OUTPATIEN 8 8 MARTIN Heard VISIT PSC 15 MINUTES HOME NURSES HEALTH, 8 8 REGISTRY OUTPATIEN & HOME T HEALH HOME NURSES HEALTH, 8 8 REGISTRY OUTPATIEN & HOME T HEALH HOME NURSES HEALTH, 8 8 REGISTRY OUTPATIEN & HOME T HEALH OFFICE 51272 Kt DOWNS OUTPATIEN 8 8 MARTIN Heard [...] REGISTRY OUTPATIEN & HOME T HEALH OFFICE 98533 Kt DOWNS OUTPATIEN 8 8 MARTIN Heard VISIT PSC 25 MINUTES HOME NURSES HEALTH, 8 8 REGISTRY OUTPATIEN & HOME T HEALH
--- NOTE | 2017-04-26 00:45 | Emergency Room Report ---
History of Present Illness Time Seen by 0020 Presenting Problem in Triage Pt arrived:Wheelchair Presenting Problem:PT. FAMILY STATES PT WAS USING THE BATHROOM AND PT. COMPLAINED OF PAIN IN LEFT LOWER ABDOMEN. FAMILY MEMBER ALSO NOTED A BLOOD CLOT WHILE USING THE BATHROOM. FAMILY ALSO NOTED WHEN PT. STANDS UP HER ABDOMEN HAS BULGING TO THE LEFT LOWER ABDOMEN. 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 N Clinical Suspician of Infection? N Mental Status: 2 - Mildly Altered Sepsis Risk:Low Sepsis Risk Have you (or family members/close friends) recently traveled outside the [place]? N If Yes, where/when: Have you had exposure to infectious disease within the past month? N TB? Other? Specify: Source patient, RN notes reviewed, family, RN/MD Exam Limitations no limitations Comment This is a 82-year-old female patient with history of dementia brought in by her daughter who has noticed bright red blood in her stool just prior to arrival. Patient has any abdominal pain, any fever, chills, diarrhea or vomiting. Patient also denies any previous similar episodes in the past. Daughter has advised that approximately 3 months ago her physician has found on the CT scans abdominal and pulmonary nodules/masses which are currently being followed up. ALLERGIES Coded Allergies: No Known Allergies (01/15/17) Home Medications Active Scripts Benzonatate (Tessalon Perle) 100 MG PO TID #15 SGL Prov: 01/15/17 ASPIRIN (Aspirin 325MG) 325 MG PO DAILY #30 TABLET Ref 1 Prov: 09/20/15 Reported Medications Lisinopril 20 MG PO DAILY INSULIN NPH HUM/REG INSULIN HM (Novolin 70-30 100 Unit/Ml Vial) 45 UNITS SC QAM INSULIN NPH HUM/REG INSULIN HM (Novolin 70-30 100 Unit/Ml Vial) 20 UNITS SC QHS Pravastatin Sodium (Pravachol) 10 MG PO QHS DONEPEZIL HCL (Donepezil 10MG Tablet) 5 MG PO QHS Escitalopram Oxalate (Lexapro 10MG) 10 MG PO QHS Furosemide (Lasix 20MG) 20 MG PO DAILY Furosemide (Lasix 40MG) 40 MG PO DAILY GABAPENTIN (Gabapentin 100MG Capsule) 100 MG PO DAILY Losartan Potassium (Losartan 50MG) 100 MG PO DAILY Spironolactone (Spironolactone) 25 MG NG BID History Medical History General CAD? No Angina: No LA: No Hypertension? Yes Hyperlipidemia? Yes CHF? No DVT? No PE? No COPD? Yes Asthma? No Anemia? No GERD? No Gastric ulcers? No GI Bleed? No Hernia? No Thyroid Problems? No Hypothyroidism? No CVA? No Seizures? No Diabetes? Yes Insulin Dependent: Yes Insulin Pump: No Home FSBS? Yes Renal Insuffiency? No End Stage Renal Disease? No UTI? No Stones? No BPH? No GB Disease: Yes Nephritic Syndrome? No Asplenia? No Hepatitis? No Sickle Cell Disease? No Arthritis? No Migraines? No Cataracts? No Glaucoma? No MRSA? No HIV? No TB? No Anxiety? No Depression? No Cancer? No More? Yes Additional hx: DEMENTIA Immunization Hx DT/Tetanus Unknown Flu REFUSES Pneumonia Refuses Surgical Hx Previous Surgery?Y Hemorrhoidectomy GALL BLADDER HYSTERECTOMY REPAIR FROM SHOOTING LEFT HIP Family History Family Hx Diabetes Yes CAD Yes Hypertension Yes Hyperlipidemia Yes Cancer Yes TB No Social History Smoking Hx Smoker: Former Smoker Tobacco: No Packs/day < 1 Pack Alcohol Alcohol: No Review of Systems All Other Systems Reviewed and Negative Gastrointestinal other (lower GI bleed) Physical Exam Vital Signs Vital Signs Date Time Temp Pulse Resp B/P Pulse O2 O2 Flow FiO2 Ox Delivery Rate 04/26 0341 98.2 70 18 173/52 98 04/26 0254 70 18 173/52 98 04/26 0141 67 20 152/72 96 04/26 0019 75 18 114/50 95 04/25 2354 98.2 74 18 141/84 95 General Appearance normal appearance, WD/WN, no apparent distress Respiratory Status Yes: trachea midline, chest symmetrical, non tender chest. No: respiratory distress. Lung Sounds bilateral: normal breath sounds, lungs clear. Cardiovascular normal exam, regular rate/rhythm, no peripheral edema, no gallop, no JVD, no murmur, no rub, normal peripheral pulses Gastrointestinal normal bowel sounds, normal exam, non tender, soft, no organomegaly Extremities non-tender, normal range of motion, normal inspection Neurologic alert, parachute taper II-XII nml as tested, normal exam, oriented x 3 Mental status normal mood/affect Skin intact, normal color, warm/dry Medical Decision Making LABS/Meds/Orders Pt receiving controlled substance in ED? No Comment Upon reevaluation patient remains medically stable, in no acute distress, with no further episodes of gastrointestinal bleeding. Advised patient as well as her daughter of results obtained, and the immediate need for her to follow-up with her PCP this morning. Additionally patient will need to follow-up with one of the gastrointestinal specialists or localized general surgeons for a colonoscopy. Patient was informed CT scan chest showing the pulmonary nodules, stable when compared to prior examination dated 01/28/17. Daughter and patient aware of the fact that the CT scan abdomen and pelvis was not available at time of discharge, but it will be read later this morning so that PCP can have results ready. Results/Orders Laboratory Tests 04/26/17 0105: Urine Color YELLOW, Urine Appearance CLEAR, Urine pH 5.5, Ur Specific Velpen 1.025, Urine Protein NEGATIVE, Urine Ketones NEGATIVE, Urine Blood 1+ H, Urine Nitrate NEGATIVE, Urine Bilirubin NEGATIVE, Urine Urobilinogen 0.2, Ur Leukocyte Esterase NEGATIVE, Urine RBC 3-5, Urine WBC OCC, Ur Squamous Epith Cells 20-50, Urine Glucose NEGATIVE 04/26/17 0044: Sodium Cancelled, Potassium Cancelled, Chloride Cancelled, Carbon Dioxide Cancelled, BUN Cancelled, Creatinine Cancelled, Estimated Creat Clear Cancelled, Estimated GFR (MDRD) Cancelled, Glucose Cancelled, Calcium Cancelled, Total Bilirubin Cancelled, AST Cancelled, ALT Cancelled, Alkaline Phosphatase Cancelled, Total Protein Cancelled, Albumin Cancelled, Globulin Cancelled, Albumin/Globulin Ratio Cancelled, Stool Occult Blood Cancelled 04/26/17 0030: Sodium 143, Potassium 5.0, Chloride 107, Carbon Dioxide 27, BUN 40 H, Creatinine 1.4 H, Estimated Creat Clear 35 L, Estimated GFR (MDRD) 36 L, Glucose 215 H, Calcium 9.9, Total Bilirubin 0.2, AST 17, ALT 17, Alkaline Phosphatase 117 H, Total Protein 7.3, Albumin 3.6, Globulin 3.7 H, Albumin/ Globulin Ratio 1.0 L, WBC 9.5, RBC 4.11 L, Hgb 12.5, Hct 38.7, MCV 94.2, RDW 12.4, Plt Count 215, MPV 9.0, Gran % 61.6, Gran # 5.9, Lymphocytes % 29.3, Monocytes % 6.2, Eosinophils % 2.2, Basophils % 0.7, Lymphocytes # 2.8, Monocytes # 0.6, Eosinophils # 0.2, Basophils # 0.1, PUBS MCHC 32.3, MCH 30.4 Current Medication Orders Sig/Mahi Start time Last Medication Dose Route Stop Time Status Admin Sodium Chloride 10 ML PRN PRN 04/26 45 DCD IV 04/27 41 Orders Procedure Date/time Status DIET-NOTHING BY MOUTH 04/[address] ABD & PELVIS W/O CONTRAST 04/[address] CHEST W/O CONTRAST 04/[address] CHEST SCAN REQ 04/[address] ABD/PELVIS REQ 04/26 44 Active IV SALINE LOCK 04/26 44 Active URINALYSIS/COMPLETE 04/26 44 Complete CBC WITH AUTO DIFF 04/26 43 Complete CHEM 12 PROFILE 04/26 43 Complete XRAY/CT/US XRAY/CT/US 1 CT abdomen, pelvis CT interpretation by reviewed by me CT Results the CT scan machine was unable to submit the images to virtual radiology in order to obtain a final report. Patient was released home without waiting on the results of the CT scan abdomen and pelvis. This will be available later this morning. XRAY/CT/US [address] interpretation by discussed w/radiologist CT Results abnormal Comment see virtual radiology report, consistent with: A couple of pulmonary nodules measuring 6 mm and LEFT lower lobe peripheral 3.4 x 1.8 cm masses which are stable compared to prior examination dated 01/28/2017. Departure Departure Time of Disposition 033 Disposition DC Home or Self Care(routine) Clinical Impression Primary Impression: GI bleed Qualifiers: GI bleed type/associated pathology: unspecified gastrointestinal hemorrhage type Qualified Code: K92.2 - Gastrointestinal hemorrhage, unspecified Condition STABLE Referrals Thu VIEYRA,Austin VARGAS,PEYTON Caceres MD, Gianna Andrade MD,Bret (Family) ANGIE VIEYRA,AYAN Field Patient Instructions Gastrointestinal Bleeding Additional Instructions Please follow-up with one of the gastrointestinal specialists (please see below) or alternatively one of the general surgeons (listed below) at your earliest convenience. See your family physician today. Discharge Counseling Counseled pt/family regarding diagnosis, test results, medications/RX, home care, follow up needs Comment Please follow-up with one of the gastrointestinal specialists (please see below) or alternatively one of the general surgeons (listed below) at your earliest convenience. See your family physician today. ED Critical Care Critical Care No at 0620
--- OUTSIDE RECORDS SUMMARY | 2017-04-26 00:45 | External Medical Summary Rpt | CCD ---
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 CALIBRATO SUPPLY SUPPLY R SOLUTION/ CHIPS LANCETS A4259 [facility] PER BOX 5 STATES STATES OF [facility] MEDICAL MEDICAL SUPPLY SUPPLY HEMOGLOBI 00097 A Antonio MAGALLANES N 5 MARTIN VIEYRA GLYCOSYLA PSC COLIN A1C GLUCOSE 50257 A Antonio MAGALLANES QUANTITAT 5 MARTIN VIEYRA BAIRON BLOOD PSC XCPT REAGENT STRIP LANCETS A4259 UNITED [facility] PER BOX 5 STATES STATES [facility] MEDICAL MEDICAL SUPPLY SUPPLY BLD GLU A4253 [facility] TEST/REAG [address] [place] [address] T [facility] HOME BLD SUPPLY SUPPLY GLU MON-50 BLD GLU A4253 [facility] [place] TEST/REAG [address] [place] [address] T [facility] BLD SUPPLY SUPPLY GLU MON-50 LANCETS A4259 UNITED [place] PER BOX 5 STATES STATES [facility] MEDICAL MEDICAL SUPPLY SUPPLY REPL BEV A4235 [facility] [address] [place] [address] MED [employer] MEDICAL MEDICAL DK BG SUPPLY SUPPLY MON OWN PT EA NORMAL A4256 [facility] AND [address] [place] [address] HIGH MEDICAL MEDICAL CALIBRATO SUPPLY SUPPLY R SOLUTION/ CHIPS SPRING-PO A4258 [facility] DEVICE MEDICAL MEDICAL FOR SUPPLY SUPPLY LANCET EACH IAADIADOO 80388 Kt DANIELS AMB 4 MARTIN VIEYRA INFLUENZA PSC LANCETS A4259 [facility] PER BOX [address] [place] [address] MEDICAL MEDICAL SUPPLY SUPPLY BLD GLU A4253 [facility] TEST/REAG 4 [facility] T [facility] BLD SUPPLY SUPPLY GLU MON-50 BLD GLU A4253 [facility] TEST/REAG 4 [facility] T [facility] BLD SUPPLY SUPPLY GLU MON-50 LANCETS A4259 [place] PER BOX [address] [place] [address] MEDICAL MEDICAL SUPPLY SUPPLY NORMAL A4256 [facility] 4 [facility] HIGH MEDICAL MEDICAL CALIBRATO SUPPLY SUPPLY R SOLUTION/ CHIPS NORMAL A4256 [facility] 4 [facility] HIGH MEDICAL MEDICAL CALIBRATO SUPPLY SUPPLY R SOLUTION/ CHIPS LANCETS A4259 UNITED [facility] PER BOX [address] [place] [address] MEDICAL MEDICAL SUPPLY SUPPLY REPL BEV A4235 [facility] 4 [facility] MED VusionES MEDICAL MEDICAL DK BG SUPPLY SUPPLY MON OWN PT EA BLD GLU A4253 [facility] TEST/REAG 4 [facility] T [facility] BLD SUPPLY SUPPLY GLU MON-50 SPRING-PO A4258 [facility] WERED 4 [facility] DEVICE MEDICAL MEDICAL FOR SUPPLY SUPPLY LANCET EACH BLD GLU A4253 [facility] TEST/REAG 4 [facility] T [facility] HOME BLD SUPPLY SUPPLY GLU MON-50 LANCETS A4259 [place] PER BOX [address] [place] [address] MEDICAL MEDICAL SUPPLY SUPPLY NORMAL A4256 [facility] 4 [facility] HIGH MEDICAL MEDICAL CALIBRATO SUPPLY SUPPLY R SOLUTION/ CHIPS PHYSICAL 81850 [facility] THERAPY 4 [facility] EVALUATIO INC INC N THERAPEUT 07558 [facility] IC PX 1/> 4 [facility] AREAS INC INC EACH 15 MIN EXERCISES RADEX 79927 [facility] WRIST 4 [facility] COMPLETE INC INC MINIMUM 3 VIEWS RADEX 42824 [place] MICHAEL WRIST 3 MEDICAL JOYCELYN COMPLETE IMAGING MINIMUM 3 ASS VIEWS APPLICATI 88251 [facility] ON CAST 3 PHYSICIAN JAM ELBOW S GROUP FINGER SHORT ARM CAST Q4010 [facility] SUPPLIES 3 PHYSICIAN JAM SHORT ARM S GROUP CAST ADULT FIBERGLAS S RADEX 87469 [facility]EL WRIST 2 3 MEDICAL JOYCELYN VIEWS IMAGING ASS RADEX 95043 [facility]ANA WRIST 3 [facility] COMPLETE INC INC MINIMUM 3 VIEWS LANCETS A4259 UNITED [facility] PER BOX 3 STATES STATES OF [facility] MEDICAL MEDICAL SUPPLY SUPPLY NORMAL A4256 [facility] 3 [facility] HIGH MEDICAL MEDICAL CALIBRATO SUPPLY SUPPLY R SOLUTION/ CHIPS BLD GLU A4253 [facility] [place] TEST/REAG 3 [facility] STATES T [facility] BLD SUPPLY SUPPLY GLU SPRING-PO A4258 [facility] [place] WERE 3 [facility] DEVICE MEDICAL MEDICAL FOR SUPPLY SUPPLY LANCET EACH CLTX DSTL 11065 [facility] RADIAL 3 PHYSICIAN JAM FX/EPIPHY S GROUP SL SEP W/O MANJ CAST Q4010 [facility] SUPPLIES 3 PHYSICIAN JAM SHORT ARM S GROUP CAST ADULT FIBERGLAS S APPLICATI 09286 [facility] ON SHORT 3 EMERGENCY BRO ARM SERVICES SPLINT FOREARM-H AND STATIC RADEX 21843 [facility]INO MAGANA HAND 3 [facility] MINIMUM 3 INC INC VIEWS RADEX 78940 [facility] ELBOW 3 MEDICAL JOYCELYN COMPLETE IMAGING MINIMUM 3 ASS VIEWS RADEX 61478 [facility] HAND 2 3 MEDICAL JOYCELYN VIEWS IMAGING ASS RADEX 09425 [facility] MIC[facility]EL WRIST 3 MEDICAL JOYCELYN COMPLETE IMAGING MINIMUM 3 ASS VIEWS LANCETS A4259 [facility] [place] PER BOX 3 STATES STATES OF [facility] MEDICAL MEDICAL SUPPLY SUPPLY NORMAL A4256 [facility] HIGH MEDICAL MEDICAL CALIBRATO SUPPLY SUPPLY R SOLUTION/ CHIPS BLD GLU A4253 [facility] TEST/REAG 3 [facility] STATES T [facility] HOME BLD SUPPLY SUPPLY GLU WED-50 ADLT SZD T4527 NURSES NURSES DISPBL 3 REGISTRY REGISTRY INCONT & HOME HE & HOME HE PROD UNDWEAR/P ULLON LG EA DISPBL T4535 NURSES NURSES LINER/SAKINA 3 REGISTRY REGISTRY ELD/GUARD & HOME HE & HOME HE /PAD/UNDG RMNT INCONT EA INCONTINE T4541 NURSES NURSES NCE 3 REGISTRY REGISTRY PRODUCT & HOME HE & HOME HE DISPOSABL E UNDPAD LARGE EA INCONTINE T4541 NURSES NURSES NCE 3 REGISTRY REGISTRY PRODUCT & HOME HE & [place] [address] [facility] HEAD/BRAI 3 MEDICAL MEDICAL N W/O IMAGING IMAGING CONTRAST ASS ASS MATERIAL BLD GLU A4253 [facility] TEST/REAG 3 MEDICAL MEDICAL T STRIPS SUPPLIES SUPPLIES HOME BLD GLU MON-50 LANCETS A4259 [facility] PER BOX 3 MEDICAL MEDICAL OF 100 SUPPLIES SUPPLIES ADLT SZD T4527 NURSES NURSES DISPBL 3 REGISTRY REGISTRY INCONT & HOME HE & HOME HE PROD UNDWEAR/P ULLON EA DISPBL T4535 NURSES NURSES LINER/SAKINA 3 REGISTRY REGISTRY ELD/GUARD & HOME HE & HOME HE /PAD/UNDG RMNT INCONT EA INCONTINE T4541 NURSES NURSES NVE 3 REGISTRY REGISTRY PRODUCT & HOME HE & HOME HE DISPOSABL E UNDPAD LARGE EA RADEX 86038 [facility] HAND 3 [facility] MINIMUM 3 INC INC VIEWS ADLT SZD T4527 NURSES NURSES DISPBL 3 REGISTRY REGISTRY INCONT & HOME HE & HOME HE PROD UNDWEAR/P ULLON EA DISPBL T4535 NURSES NURSES LINER/SAKINA 3 REGISTRY REGISTRY ELD/GUARD & HOME HE & HOME HE /PAD/UNDG RMNT INCONT EA INCONTINE T4541 NURSES NURSES NVE 3 REGISTRY REGISTRY PRODUCT & HOME HE & HOME HE DISPOSABL E UNDPAD LARGE EA LANCETS A4259 US US PER BOX 3 [facility] OF 100 E SUPPLY E SUPPLY LLC LLC BLD GLU A4253 US US TEST/REAG 3 [facility] T STRIPS E SUPPLY E SUPPLY HOME BLD LLC LLC GLU MON-50 ADLT SZD T4527 NURSES NURSES DISPBL 3 [...] HE PROD UNDWEAR/P ULLON LG EA RADEX 00077 [place] MICHAEL HAND 3 MEDICAL JOYCELYN MINIMUM 3 IMAGING VIEWS ASS RADEX 44296 [place] MICHAEL ELBOW 2 3 MEDICAL JOYCELYN VIEWS IMAGING ASS APPLICATI 84795 [facility]INO MAGANA ON SHORT 3 [facility] ARM INC INC SPLINT FOREARM-H AND STATIC RADEX 96860 [place] MICHAEL HAND 3 MEDICAL JOYCELYN MINIMUM 3 IMAGING VIEWS ASS LANCETS A4259 [facility] PER BOX 3 STATES STATES OF 100 MEDICAL MEDICAL SUPPLY SUPPLY NORMAL A4256 [facility] [place] LOW AND 3 STATES STATES HIGH MEDICAL MEDICAL CALIBRATO SUPPLY SUPPLY R SOLUTION/ CHIPS BLD GLU A4253 [facility] TEST/REAG 3 STATES STATES T [facility] HOME BLD SUPPLY SUPPLY GLU MON-50 REPL BEV A4233 [facility] [place] ALKALINE 3 STATES STATES NOT J MEDICAL MEDICAL CELL DK SUPPLY SUPPLY BG MON OWND PT SPRING-PO A4258 [facility] WERED 3 STATES STATES DEVICE MEDICAL MEDICAL FOR SUPPLY SUPPLY LANCET EACH DISPBL T4535 NURSES NURSES LINER/SAKINA 3 REGISTRY REGISTRY ELD/GUARD & HOME HE & HOME HE /PAD/UNDG RMNT INCONT EA NON-INVAS 31578 EDGAR RODRIGUEZ BAIRON 3 MEDICAL JOYCELYN PHYSIOLOG [...] PROD UNDWEAR/P ULLON LG EA LANCETS A4259 [facility] PER BOX 3 MEDICAL MEDICAL OF 100 SUPPLIES SUPPLIES BLD GLU A4253 [facility] TEST/REAG 3 MEDICAL MEDICAL T STRIPS SUPPLIES SUPPLIES HOME BLD GLU MON-50 BASIC 29804 [facility] METABOLIC 3 DIAGNOSTI DIAGNOSTI PANEL [...] SUPPLY CALIBRATO LLC LLC R SOLUTION/ CHIPS ADLT [facility] T4527 NURSES NURSES DISPBL 3 REGISTRY REGISTRY INCONT & HOME HE & HOME HE PROD UNDWEAR/P ULLON LG EA INCONTINE T4541 NURSES NURSES NCE 3 REGISTRY REGISTRY PRODUCT & HOME HE & HOME HE DISPOSABL E UNDPAD LARGE EA HIGH K0004 ALEC ALEC STRENGTH 3 HOME HOME [facility] HT EQUIPME EQUIPME WHEELCHAI R DISPBL T4535 NURSES NURSES LINER/SAKINA 3 REGISTRY REGISTRY ELD/GUARD & HOME HE & HOME HE /PAD/UNDG RMNT INCONT EA INCONTINE T4541 NURSES NURSES NCE 3 REGISTRY REGISTRY PRODUCT & HOME HE & HOME HE DISPOSABL E UNDPAD LARGE EA ADLT SZD T4527 NURSES NURSES DISPBL 3 REGISTRY REGISTRY INCONT & HOME HE & HOME HE PROD UNDWEAR/P ULLON LG EA NORMAL A4256 GLOBAL GLOBAL LOW AND 3 MEDICAL MEDICAL HIGH DIRECT DIRECT CALIBRATO R SOLUTION/ CHIPS LANCETS A4259 GLOBAL GLOBAL PER BOX 3 MEDICAL MEDICAL OF 100 DIRECT DIRECT BLD GLU A4253 GLOBAL GLOBAL TEST/REAG 3 MEDICAL MEDICAL T [facility]IPS DIRECT DIRECT HOME BLD GLU MON-50 ADLT SZD T4527 NURSES NURSES DISPBL 3 REGISTRY REGISTRY INCONT & HOME HE & HOME HE PROD UNDWEAR/P ULLON LG EA INCONTINE T4541 NURSES NURSES NCE 3 REGISTRY REGISTRY PRODUCT & HOME HE & HOME HE DISPOSABL E UNDPAD LARGE EA HIGH K0004 ALEC ALEC STRENGTH 3 HOME HOME [facility] HT EQUIPME EQUIPME WHEELCHAI R LANCETS A4259 UNITED [facility] PER BOX 3 [...] MEDICAL MEDICAL HT EQUIPME EQUIPME WHEELCHAI R [place]- A4258 [place] WERED 2 [facility]ALTHCAR HEALTHCAR [...] STRIPS SUPPLIES SUPPLIES HOME BLD GLU MON-50 HIGH K0004 ALEC ALEC STRENGTH 2 HOME HOME [facility] EQUIPME EQUIPME WHEELCHAI R SPRING-PO A4258 [facility] WERED 2 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 HELPER FOR LANCET EACH BLD GLU A4253 [facility] TEST/REAG 2 MEDICAL MEDICAL T STRIPS HOME BLD GLU WED- REPL BEV A4233 [facility] ALKALINE 2 MEDICAL MEDICAL NOT J CELL DK BG MON OWND PT LANCETS A4259 [facility] PER BOX 2 MEDICAL MEDICAL OF 100 NORMAL A4256 [facility] LOW AND 2 MEDICAL MEDICAL HIGH CALIBRATO R SOLUTION/ CHIPS ADLT SZD T4527 NURSES NURSES DISPBL 2 REGISTRY REGISTRY INCONT & HOME HE & HOME HE PROD UNDWEAR/P ULLON LG EA DISPBL T4535 NURSES NURSES LINER/SAKINA 2 REGISTRY REGISTRY ELD/GUARD & HOME HE & HOME HE /PAD/UNDG RMNT INCONT EA LANCETS A4259 GLOBAL GLOBAL PER BOX 2 MEDICAL MEDICAL OF 100 DIRECT DIRECT BLD GLU A4253 GLOBAL GLOBAL TEST/REAG 2 MEDICAL MEDICAL T STRIPS DIRECT DIRECT HOME BLD GLU WED- HIGH K0004 ALEC ALEC STRENGTH 2 HOME HOME [facility] HT EQUIPME EQUIPME WHEELCHAI R DISPBL T4535 NURSES NURSES LINER/SAKINA 2 REGISTRY [...] HE /PAD/UNDG RMNT INCONT EA SPRING-PO A4258 [facility] WERED 2 STATES STATES DEVICE MEDICAL MEDICAL FOR SUPPLY SUPPLY LANCET EACH LANCETS A4259 [facility] PER BOX 2 STATES STATES OF 100 MEDICAL MEDICAL SUPPLY SUPPLY REPL BEV A4235 [facility] LITHIUM 2 STATES STATES MED NECES MEDICAL MEDICAL DK BG SUPPLY SUPPLY MON OWN PT EA NORMAL A4256 [facility] [place] LOW AND 2 [facility] STATES HIGH MEDICAL MEDICAL CALIBRATO SUPPLY SUPPLY R SOLUTION/ CHIPS BLD GLU A4253 [facility] TEST/REAG 2 [facility] STATES T [facility] MEDICAL MEDICAL HOME BLD SUPPLY SUPPLY GLU MON-50 HIGH K0004 ALEC ALEC STRENGTH 2 HOME HOME [facility] HT EQUIPME EQUIPME WHEELCHAI R DISPBL T4535 NURSES NURSES LINER/SAKINA 2 REGISTRY REGISTRY ELD/GUARD & HOME HE & HOME HE /PAD/UNDG RMNT INCONT EA ADLT [facility] T4527 NURSES NURSES DISPBL 2 REGISTRY REGISTRY INCONT & HOME HE & HOME HE PROD UNDWEAR/P ULLON LG DISPBL T4535 NURSES NURSES LINER/SAKINA 2 REGISTRY REGISTRY ELD/GUARD & HOME HE & HOME HE /PAD/UNDG RMNT INCONT EA ADLT [facility] T4527 NURSES NURSES DISPBL 2 REGISTRY REGISTRY INCONT & HOME HE & HOME HE PROD UNDWEAR/P ULLON LG [facility] K0004 ALEC ALEC STRENGTH 2 HOME HOME [facility] HT EQUIPME EQUIPME WHEELCHAI R LANCETS A4259 [facility] AR[facility]IV[facility] PER BOX 2 MEDICAL MEDICAL OF 100 NORMAL A4256 [facility] LOW AND 2 MEDICAL MEDICAL HIGH CALIBRATO R SOLUTION/ CHIPS BLD GLU A4253 [facility] TEST/REAG 2 MEDICAL MEDICAL T STRIPS HOME BLD GLU MON-50 BLD GLU A4253 G[facility] GLOBAL TEST/REAG 2 MEDICAL MEDICAL T STRIPS DIRECT DIRECT HOME BLD GLU MON-50 REPL BEV A4233 GLOBAL GLOBAL ALKALINE 2 MEDICAL MEDICAL NOT J DIRECT DIRECT CELL DK BG MON OWND PT LANCETS A4259 GLOBAL GLOBAL PER BOX 2 MEDICAL MEDICAL OF 100 DIRECT DIRECT ADLT SZD T4527 NURSES NURSES DISPBL 2 REGISTRY REGISTRY INCONT & HOME HE & HOME HE PROD UNDWEAR/P ULLON LG DISPBL T4535 NURSES NURSES LINER/SAKINA 2 REGISTRY REGISTRY ELD/GUARD & HOME HE & HOME HE /PAD/UNDG RMNT INCONT EA ADLT D T4527 NURSES NURSES DISPBL 2 REGISTRY REGISTRY INCONT & HOME HE & HOME HE PROD UNDWEAR/P ULLON LG EA DISPBL T4535 NURSES NURSES LINER/SAKINA 2 REGISTRY REGISTRY ELD/GUARD & HOME HE & HOME HE /PAD/UNDG RMNT INCONT EA HIGH K0004 [facility] ALEC STRENGTH 2 HOME HOME [facility] HT EQUIPME EQUIPME WHEELCHAI R DISPBL T4535 NURSES NURSES LINER/SAKINA 2 REGISTRY REGISTRY ELD/GUARD & HOME HE & HOME HE /PAD/UNDG RMNT INCONT EA ADLT [facility] T4527 NURSES NURSES DISPBL 2 REGISTRY REGISTRY INCONT & HOME HE & HOME HE PROD UNDWEAR/P ULLON LG EA DISPBL T4535 NURSES NURSES LINER/SAKINA 2 REGISTRY REGISTRY ELD/GUARD & HOME HE & HOME HE /PAD/UNDG RMNT INCONT EA ADLT [facility] T4527 NURSES NURSES DISPBL 2 REGISTRY REGISTRY INCONT & HOME HE & HOME HE PROD UNDWEAR/P ULLON LG EA NORMAL A4256 [facility] [place] LOW AND 2 STATES STATES HIGH MEDICAL MEDICAL CALIBRATO SUPPLY SUPPLY R SOLUTION/ CHIPS BLD GLU A4253 [facility] TEST/REAG 2 STATES STATES T [facility] MEDICAL MEDICAL HOME BLD SUPPLY SUPPLY GLU MON-50 LANCETS A4259 [facility] PER BOX [address] [place] [address] MEDICAL MEDICAL SUPPLY SUPPLY HIGH K0004 ALEC ALEC STRENGTH 2 HOME HOME [facility] HT EQUIPME EQUIPME WHEELCHAI R DISPBL T4535 NURSES NURSES LINER/SAKINA 2 REGISTRY REGISTRY ELD/GUARD & HOME HE & HOME HE /PAD/UNDG RMNT INCONT EA ADLT [facility] T4527 NURSES NURSES DISPBL 2 REGISTRY REGISTRY INCONT & HOME HE & HOME HE PROD UNDWEAR/P ULLON LG EA COLLECTIO 53502 A Antonio MAGALLANES N VENOUS 2 MARTIN VIEYRA BLOOD [facility] VENIPUNCT URE GLUCOSE 95666 A Antonio MAGALLANES QUANTITAT 2 MARTIN VIEYRA BAIRON BLOOD [facility] XCPT REAGENT STRIP HEMOGLOBI 63521 A Antonio MAGALLANES N 2 MARTIN VIEYRA GLYCOSYLA [facility] COLIN A1C BASIC 50702 [facility] METABOLIC 2 DIAGNOSTI DIAGNOSTI PANEL CS CS CALCIUM TOTAL LIPID 58224 A Antonio [facility] ELPIDIO PANEL 2 MARTIN VIEYRA [facility] HIGH K0004 ALEC ALEC STRENGTH 2 HOME HOME [facility] HT EQUIPME EQUIPME WHEELCHAI R ADLT [facility] T4527 NURSES NURSES DISPBL 2 REGISTRY REGISTRY INCONT & HOME HE & HOME HE PROD UNDWEAR/P ULLON LG EA LANCETS A4259 [facility] ARRIV[facility] PER BOX 2 MEDICAL MEDICAL OF 100 [facility] A4258 ARRIVA ARRIVA WERED 2 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 HELPER FOR LANCET EACH BLD GLU A4253 [facility] TEST/REAG 2 MEDICAL MEDICAL T STRIPS HOME BLD GLU WED- REPL BEV A4233 ARRIVA ARRIVA ALKALINE 2 MEDICAL MEDICAL NOT J CELL DK BG MON OWND PT NORMAL A4256 ARRIVA ARRIVA LOW AND 2 [...] STRIPS DIRECT DIRECT HOME BLD GLU WED-50 HIGH K0004 [facility]LE[facility] ALEC STRENGTH 2 HOME HOME [facility] HT EQUIPME EQUIPME WHEELCHAI R DISPBL T4535 NURSES NURSES LINER/SAKINA 2 REGISTRY [...] HE /PAD/UNDG RMNT INCONT EA SPRING-PO A4258 [facility] [place] WER[facility] 2 STATES STATES DEVICE MEDICAL MEDICAL FOR SUPPLY SUPPLY LANCET EACH BLD GLU A4253 [facility] TEST/REAG 2 [facility] STATES T STRIPS MEDICAL MEDICAL HOME BLD SUPPLY SUPPLY GLU MON-50 NORMAL A4256 [facility] LOW AND 2 [facility] STATES HIGH MEDICAL MEDICAL CALIBRATO SUPPLY SUPPLY R SOLUTION/ CHIPS LANCETS A4259 [facility] PER BOX 2 [facility] STATES OF [facility] MEDICAL MEDICAL SUPPLY SUPPLY REPL BEV A4235 [facility] LITHIUM 2 STATES STATES MED NECES MEDICAL MEDICAL DK BG SUPPLY SUPPLY MON OWN PT EA DISPBL T4535 NURSES NURSES LINER/SAKINA 2 REGISTRY REGISTRY ELD/GUARD & HOME HE & HOME HE /PAD/UNDG RMNT INCONT EA ADLT [facility] T4527 NURSES NURSES DISPBL 2 REGISTRY REGISTRY INCONT & HOME HE & HOME HE PROD UNDWEAR/P ULLON LG [facility] K0004 ALEC MICHAEL STRENGTH 2 HOME HOME [facility] EQUIPME EQUIPME WHEELCHAI R [facility] K0004 ALEC ESPINOSARELL STRENGTH 2 HOME HOME [facility] EQUIPME EQUIPME WHEELCHAI [facility] E2601 ALEC PATELLCHAIR 2 HOME HOME SEAT MEDICAL MEDICAL CUSHN EQUIPME EQUIPME WIDTH < 22 IN DEPTH [facility] 06425 Kt [facility] DISCHARGE 2 MARTIN VIEYRA DAY PSC MANAGEMEN T 30 MIN/< COMMODE E0163 [facility] MICHAEL CHAIR 2 HOME HOME MOBILE OR MEDICAL MEDICAL EQUIPME EQUIPME STATIONAR Y W/FIXED ARMS SBSQ 06764 A Antonio [facility] 2 MARTIN VIEYRA CARE/DAY PSC 15 MINUTES INITIAL 09340 Kt [facility] MARTIN VIEYRA CARE/[place] [address] [place] [address] EDGAR MICHAEL CERVICAL 2 MEDICAL JOYCELYN SPINE W/O IMAGING CONTRAST ASS MATERIAL 3D 92592 EDGAR JOHNSONUTCHER RENDERING 2 MEDICAL JOYCELYN IMAGING W/INTERP& ASS POSTPROC DIFF WORK STATION ECG 71231 CHINO GUTIERREZ ROUTINE 2 [facility] W/LEAST P 12 LDS I&R ONLY LANCETS A4259 GLOBAL GLOBAL PER BOX 2 MEDICAL MEDICAL OF 100 DIRECT DIRECT BLD GLU A4253 GLOBAL GLOBAL TEST/REAG 2 MEDICAL MEDICAL T STRIPS DIRECT DIRECT HOME BLD GLU MON-50 BLD GLU A4253 [facility] TEST/REAG 2 [facility] STATES T STRIPS MEDICAL MEDICAL HOME BLD SUPPLY SUPPLY GLU MON-50 NORMAL A4256 [facility] AND [facility] HIGH MEDICAL MEDICAL CALIBRATO SUPPLY SUPPLY R SOLUTION/ CHIPS LANCETS A4259 UNITED UNITED PER BOX 2 STATES STATES OF [facility] MEDICAL MEDICAL SUPPLY SUPPLY DISPBL T4535 [...] HOME HE PROD UNDWEAR/P ULLON LG EA TRANSFERA [id number] CHINO MAGANA SE 1 [facility] AMINO AST SGOT LIPID [id number] CHINO MAGANA PANEL 1 [facility] INC INC ADLT SZD T4527 NURSES NURSES DISPBL 1 REGISTRY REGISTRY INCONT & HOME HE & HOME HE PROD UNDWEAR/P ULLON LG EA DISPBL T4535 NURSES NURSES LINER/SAKINA 1 REGISTRY REGISTRY ELD/GUARD & HOME HE & HOME HE /PAD/UNDG RMNT INCONT EA SPRING-PO A4258 [facility] WERED 1 [facility] DEVICE MEDICAL MEDICAL FOR SUPPLY SUPPLY LANCET EACH DISPBL T4535 NURSES NURSES LINER/SAKINA 1 REGISTRY REGISTRY ELD/GUARD & HOME HE & HOME HE /PAD/UNDG RMNT INCONT EA ADLT SZD T4527 NURSES NURSES DISPBL 1 REGISTRY REGISTRY INCONT & HOME HE & HOME HE PROD UNDWEAR/P ULLON LG EA LANCETS A4259 DIABETES DIABETES PER BOX 1 [facility] OF [facility] SPRING-PO A4258 DIABETES DIABETES WERED 1 [facility] DEVICE [facility] LLC FOR LANCET EACH BLD GLU A4253 DIABETES DIABETES TEST/REAG 1 [facility] T STRIPS LLC LLC HOME BLD GLU MON-50 NORMAL A4256 DIABETES DIABETES LOW AND 1 [facility] HIGH LLC LLC CALIBRATO R SOLUTION/ CHIPS ADLT SZD T4527 NURSES NURSES DISPBL 1 REGISTRY REGISTRY INCONT & HOME HE & HOME HE PROD UNDWEAR/P ULLON LG EA DISPBL T4535 NURSES NURSES LINER/SAKINA 1 REGISTRY REGISTRY ELD/GUARD & HOME HE & HOME HE /PAD/UNDG RMNT INCONT [facility] A0120 LKLP LKLP TRNSPRT: 1 COMMUNITY COMMUNITY [facility] ACTION N MTN AREA/OTH SYS DISPBL T4535 NURSES NURSES LINER/SAKINA 1 REGISTRY REGISTRY ELD/GUARD & HOME HE & HOME HE /PAD/UNDG RMNT INCONT EA ADLT SZD T4527 NURSES NURSES DISPBL 1 REGISTRY REGISTRY INCONT & HOME HE & HOME HE PROD UNDWEAR/P ULLON LG EA LANCETS A4259 ARRIVA ARRIVA PER BOX 1 MEDICAL MEDICAL OF 100 BLD GLU A4253 ARRIVA ARRIVA TEST/REAG 1 MEDICAL MEDICAL T STRIPS HOME BLD GLU MON-50 NORMAL A4256 ARRIVA ARRIVA LOW AND 1 MEDICAL MEDICAL HIGH CALIBRATO R SOLUTION/ CHIPS ADLT SZD T4527 NURSES NURSES DISPBL 1 REGISTRY REGISTRY INCONT & HOME HE & HOME HE PROD UNDWEAR/P ULLON LG EA DISPBL T4535 NURSES NURSES LINER/SAKINA 1 REGISTRY REGISTRY ELD/GUARD & HOME HE & HOME HE /PAD/UNDG RMNT INCONT EA WALKER E0135 VICLEN, VICLEN, FOLDING 1 INC INC ADJUSTABL E OR FIXED HEIGHT BLD GLU A4253 GLOBAL GLOBAL TEST/REAG 1 MEDICAL MEDICAL T STRIPS DIRECT DIRECT HOME BLD GLU WED-50 NORMAL A4256 GLOBAL GLOBAL LOW AND 1 MEDICAL MEDICAL HIGH DIRECT DIRECT CALIBRATO R SOLUTION/ CHIPS LANCETS A4259 GLOBAL GLOBAL PER BOX 1 MEDICAL MEDICAL OF 100 DIRECT DIRECT [facility] A4258 GLOBAL GLOBAL WERED 1 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 HELPER DIRECT DIRECT FOR LANCET EACH ADLT D T4527 NURSES NURSES DISPBL 1 REGISTRY REGISTRY [...] PROD UNDWEAR/P ULLON LG EA LANCETS A4259 DIABETES DIABETES PER BOX 1 [facility] OF 100 LLC LLC NORMAL A4256 DIABETES DIABETES LOW AND 1 [facility] HIGH LLC LLC CALIBRATO R SOLUTION/ CHIPS BLD GLU A4253 DIABETES DIABETES TEST/REAG 1 [facility] T STRIPS LLC LLC HOME BLD GLU MON-50 ADLT SZD T4527 NURSES NURSES DISPBL 1 REGISTRY REGISTRY INCONT & HOME HE & HOME HE PROD UNDWEAR/P ULLON LG EA DISPBL T4535 NURSES NURSES LINER/SAKINA 1 REGISTRY REGISTRY ELD/GUARD & HOME HE & HOME HE /PAD/UNDG RMNT INCONT EA LANCETS A4259 DIRECT DIRECT PER BOX 1 DIABETIC DIABETIC OF 100 SOURCE SOURCE INC INC [facility] A4258 DIRECT DIRECT WERED 1 DIABETIC DIABETIC DEVICE [employer] FOR INC INC LANCET EACH BLD GLU A4253 DIRECT DIRECT TEST/REAG 1 DIABETIC DIABETIC T STRIPS SOURCE SOURCE HOME BLD INC INC GLU MON-50 NORMAL A4256 DIRECT DIRECT LOW AND 1 DIABETIC DIABETIC HIGH SOURCE SOURCE CALIBRATO INC INC R SOLUTION/ CHIPS LIPID 24252 CHINO MAGANA PANEL 1 [facility] INC INC HEMOGLOBI 55907 CHINO MAGANA N 1 [facility] GLYCOSYLA INC INC COLIN A1C DISPBL T4535 NURSES NURSES LINER/SAKINA 1 REGISTRY [...] PROD UNDWEAR/P ULLON LG EA LANCETS A4259 DOCTOR DOCTOR PER BOX 1 DIABETIC DIABETIC OF 100 SUPPLY SUPPLY INC INC [facility] A4258 DOCTOR DOCTOR WERED 1 DIABETIC DIABETIC DEVICE SUPPLY SUPPLY FOR INC INC LANCET EACH DISPBL T4535 NURSES NURSES LINER/SAKINA 1 REGISTRY REGISTRY ELD/GUARD & HOME HE & HOME HE /PAD/UNDG RMNT INCONT EA BLD GLU A4253 DOCTOR DOCTOR TEST/REAG 1 DIABETIC DIABETIC T STRIPS SUPPLY SUPPLY HOME BLD INC INC GLU MON-50 REPL BEV A4235 DOCTOR DOCTOR LITHIUM 1 DIABETIC DIABETIC MED NECES SUPPLY SUPPLY DK BG INC INC MON OWN PT EA NORMAL A4256 DOCTOR DOCTOR LOW AND 1 DIABETIC DIABETIC HIGH SUPPLY SUPPLY CALIBRATO INC INC R SOLUTION/ CHIPS NORMAL A4256 ARRIVA ARRIVA LOW AND 1 MEDICAL MEDICAL HIGH CALIBRATO R SOLUTION/ CHIPS BLD GLU A4253 ARRIVA ARRIVA TEST/REAG 1 MEDICAL MEDICAL T STRIPS HOME BLD GLU MON-50 LANCETS A4259 ARRIVA ARRIVA PER BOX 1 MEDICAL MEDICAL OF 100 ADLT SZD T4527 NURSES NURSES DISPBL 1 REGISTRY REGISTRY INCONT & HOME HE & HOME HE PROD UNDWEAR/P [facility] DISPBL T4535 NURSES NURSES LINER/SAKINA 1 REGISTRY REGISTRY ELD/GUARD & HOME HE & HOME HE /PAD/UNDG RMNT INCONT EA BLD GLU A4253 DIABETES DIABETES TEST/REAG 1 [facility] C[facility] T [facility] LLC LLC HOME BLD GLU MON-50 NORMAL A4256 DIABETES DIABETES LOW AND 1 [facility] CARE CLUB HIGH LLC LLC CALIBRATO R SOLUTION/ CHIPS REPL BEV A4235 DIABETES DIABETES LITHIUM 1 [facility] CARE CLUB MED NECES LLC LLC DK BG MON OWN PT EA LANCETS A4259 DIABETES DIABETES PER BOX 1 [facility] OF 100 LLC LLC DISPBL T4535 NURSES NURSES LINER/SAKINA 1 REGISTRY REGISTRY ELD/GUARD & HOME HE & HOME HE /PAD/UNDG RMNT INCONT EA ADLT D T4527 NURSES NURSES DISPBL 1 REGISTRY REGISTRY INCONT & HOME HE & HOME HE PROD UNDWEAR/P [facility] NURSES NURSES DISPBL 1 REGISTRY REGISTRY INCONT & HOME HE & HOME HE PROD UNDWEAR/P [facility] DISPBL T4535 NURSES NURSES LINER/SAKINA 1 REGISTRY [...] EA LANCETS A4259 ARRIVA ARRIVA PER BOX 1 MEDICAL MEDICAL OF 100 A4258 ARRIVA ARRIVA WERED 1 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 HELPER FOR LANCET EACH NORMAL A4256 ARRIVA ARRIVA LOW AND 1 MEDICAL MEDICAL HIGH CALIBRATO R SOLUTION/ CHIPS BLD GLU A4253 ARRIVA ARRIVA TEST/REAG 1 MEDICAL MEDICAL T STRIPS HOME BLD GLU MON-50 REPL BEV A4233 ARRIVA ARRIVA ALKALINE 1 MEDICAL MEDICAL NOT J CELL DK BG MON OWND PT BLD GLU A4253 DOCTOR DOCTOR TEST/REAG 1 [...] EA ADLT D T4527 NURSES NURSES DISPBL 1 REGISTRY REGISTRY INCONT & HOME HE & HOME HE PROD UNDWEAR/P ULLON LG EA LANCETS A4259 DIABETES DIABETES PER BOX 1 [facility] OF 100 LLC LLC A4258 DIABETES DIABETES WERED 1 [facility] DEVICE LLC LLC FOR LANCET EACH NORMAL A4256 DIABETES DIABETES LOW AND 1 [facility] CARE CL[facility] HIGH LLC LLC CALIBRATO R SOLUTION/ CHIPS BLD GLU A4253 DIABETES DIABETES TEST/REAG 1 [facility] T [facility] [employer] LLC HOME BLD GLU MON-50 URINLS 62256 A Antonio CORDOVA ELPIDIO DIP 1 MARTIN VIEYRA STICK/TAB PSC LET REAGNT NON-AUTO MICRSCPY COLLECTIO 68898 A Antonio CORDOVA ELPIDIO N VENOUS 1 MARTIN VIEYRA BLOOD PSC VENIPUNCT URE GLUCOSE 42202 A Antonio CORDOVA ELPIDIO QUANTITAT 1 MARTIN VIEYRA BAIRON BLOOD [...] HOME HE PROD UNDWEAR/P ULLON LG EA DIAGNOSTI G0206 CHINO MAGANA C 0 [facility] MAMMOGRAP INC INC HY INCL CAD WHEN PERF; UNI US BREAST 56799 CHINO MAGANA REAL 0 [facility] TIME INC INC W/IMAGE DOCUMENTA TION BLD GLU A4253 TUSHAR, TUSHAR, TEST/REAG 0 INC INC T STRIPS HOME BLD GLU 50 ADLT SZD T4527 NURSES NURSES DISPBL 0 [...] HOME HE PROD UNDWEAR/P ULLON LG EA [facility] A4258 DOCTOR DOCTOR WERED 0 DIABETIC DIABETIC DEVICE SUPPLY SUPPLY FOR INC INC LANCET EACH LANCETS A4259 DOCTOR DOCTOR PER BOX 0 DIABETIC DIABETIC OF 100 SUPPLY SUPPLY INC INC BLD GLU A4253 DOCTOR DOCTOR TEST/REAG 0 DIABETIC DIABETIC T STRIPS SUPPLY SUPPLY HOME BLD INC INC GLU WED- NORMAL A4256 DOCTOR DOCTOR LOW AND 0 DIABETIC DIABETIC HIGH SUPPLY SUPPLY CALIBRATO INC INC R SOLUTION/ CHIPS NORMAL A4256 ARRIVA ARRIVA LOW AND 0 MEDICAL MEDICAL HIGH CALIBRATO R SOLUTION/ CHIPS BLD GLU A4253 ARRIVA ARRIVA TEST/REAG 0 MEDICAL MEDICAL T STRIPS HOME BLD GLU LANCETS A4259 ARRIVA ARRIVA PER BOX 0 MEDICAL MEDICAL OF 100 SCREENING G0202 [place] MICHAEL 0 MEDICAL JOYCELYN MAMMOGRAP IMAGING HY DANIA ASS INCL CAD WHEN PERFORMD - [id number] [place] MICHAEL AIDED 0 MEDICAL JOYCELYN DETECTION IMAGING ASS SCREENING MAMMOGRAP HY ADLT SZD T4527 NURSES NURSES DISPBL 0 REGISTRY REGISTRY INCONT & HOME HE & HOME HE PROD UNDWEAR/P ULLON LG EA DISPBL T4535 NURSES NURSES LINER/SAKINA 0 REGISTRY REGISTRY ELD/GUARD & HOME HE & HOME HE /PAD/UNDG RMNT INCONT EA BLD GLU A4253 HOMEROLEN, HOMEROLEN, TEST/REAG 0 INC INC T STRIPS HOME BLD GLU 50 NORMAL A4256 TUSHAR FINLEY, LOW AND 0 INC INC HIGH CALIBRATO R SOLUTION/ CHIPS DISPBL T4535 NURSES NURSES LINER/SAKINA 0 REGISTRY [...] & HOME HE /PAD/UNDG RMNT INCONT EA HEMOGLOBI 23766 LAB SHIN LAB SHIN N 0 AMERIC AMERIC GLYCOSYLA HOLDING HOLDING COLIN A1C BLOOD 89381 LAB SHIN LAB SHIN COUNT 0 AMERIC AMERIC COMPLETE HOLDING HOLDING AUTO&AUTO DIFRNTL WBC COLLECTIO 22015 A C SALAZAR A N VENOUS 0 MARTIN VIEYRA BLOOD PSC VENIPUNCT URE TRANSFERA 06575 LAB SHIN LAB SHIN SE 0 AMERIC AMERIC ASPARTATE [place] [address] LAB SHIN LAB SHIN THYROID 0 AMERIC AMERIC STIMULATI HOLDING HOLDING NG HORMONE TSH BASIC 93133 LAB SHIN LAB SHIN METABOLIC 0 AMERIC AMERIC PANEL HOLDING HOLDING CALCIUM TOTAL LIPID 33718 LAB SHIN LAB SHIN PANEL 0 AMERIC [employer] HOLDING HOLDING ADLT SZD T4527 NURSES NURSES DISPBL 0 REGISTRY REGISTRY INCONT & HOME HE & HOME HE PROD UNDWEAR/P ULLON EA DISPBL T4535 NURSES NURSES LINER/SAKINA 0 REGISTRY REGISTRY ELD/GUARD & HOME HE & HOME HE /PAD/UNDG RMNT INCONT EA BLD GLU A4253 VICLEN, VICLEN, TEST/REAG 0 INC INC T STRIPS HOME BLD GLU MON-50 ADLT SZD T4527 NURSES NURSES DISPBL 0 REGISTRY REGISTRY INCONT & HOME HE & HOME HE PROD UNDWEAR/P ULLON EA DISPBL T4535 NURSES NURSES LINER/SAKINA 0 REGISTRY REGISTRY ELD/GUARD & HOME HE & HOME HE /PAD/UNDG RMNT INCONT EA DISPBL T4535 NURSES NURSES LINER/SAKINA 0 REGISTRY REGISTRY ELD/GUARD & HOME HE & HOME HE /PAD/UNDG RMNT INCONT EA ADLT SZD T4527 NURSES NURSES DISPBL 0 REGISTRY REGISTRY INCONT & HOME HE & HOME HE PROD UNDWEAR/P ULLON LG EA BLD GLU A4253 ARRIVA ARRIVA TEST/REAG 0 MEDICAL MEDICAL T STRIPS HOME BLD GLU MON-50 NORMAL A4256 ARRIVA ARRIVA LOW AND 0 MEDICAL MEDICAL HIGH CALIBRATO R SOLUTION/ CHIPS HOME E0607 ARRIVA ARRIVA BLOOD 0 MEDICAL MEDICAL GLUCOSE MONITOR [facility] A4258 ARRIVA ARRIVA WERED 0 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 HELPER FOR LANCET EACH LANCETS A4259 ARRIVA ARRIVA PER BOX 0 MEDICAL MEDICAL OF 100 URNLS DIP 35843 CHINO MAGANA 0 [facility] STICK/TAB INC INC LET REAGENT AUTO MICROSCOP Y CULTURE 14960 CHINO MAGANA BACTERIAL 0 [facility] INC INC QUANTTATI VE COLONY COUNT URINE ADLT SZD T4527 NURSES NURSES DISPBL 0 [...] UNDWEAR/P ULLON LG EA BLD GLU A4253 HOMEROLENTUSHAR, TEST/REAG 0 INC INC T STRIPS HOME BLD GLU MON-50 ADLT SZD T4527 NURSES NURSES DISPBL 0 REGISTRY REGISTRY INCONT & HOME HE & HOME HE PROD UNDWEAR/P ULLON LG EA DISPBL T4535 NURSES NURSES LINER/SAKINA 0 REGISTRY REGISTRY ELD/GUARD & HOME HE & HOME HE /PAD/UNDG RMNT INCONT EA GLUC BLD 66699 Kt CORDOVA, GLUC MNTR 0 MARTIN AVILA PSC CLEARED FDA SPEC HOME USE BLD GLU A4253 TUSHAR FINLEY, TEST/REAG 0 INC INC T STRIPS HOME BLD GLU MON-50 ADLT SZD T4526 NURSES NURSES DISPBL 0 REGISTRY REGISTRY INCONT & HOME & HOME PROD HEALH HEALH UNDWEAR MED EA DISPBL T4535 NURSES NURSES LINER/SAKINA 0 REGISTRY REGISTRY ELD/GUARD & HOME & HOME /PAD/UNDG HEALH [facility] RMNT INCONT EA BLD GLU A4253 TUSHAR FINLEY, TEST/REAG 0 INC INC T STRIPS HOME BLD GLU MON-50 ADLT SZD T4526 NURSES NURSES DISPBL 0 REGISTRY REGISTRY INCONT & HOME & HOME PROD HEALH [facility] UNDWEAR MED EA DISPBL T4535 NURSES NURSES LINER/SAKINA 0 REGISTRY REGISTRY ELD/GUARD & HOME & HOME /PAD/UNDG HEALH [facility] RMNT INCONT EA BLD GLU A4253 TUSHAR FINLEY, TEST/REAG 0 INC INC T STRIPS HOME BLD GLU MON-50 LIPID 75898 [facility] PANEL 0 [employer] [facility] [employer] INC BASIC 53081 [facility] METABOLIC 0 [employer] PANEL CALCIUM TOTAL URINLS 02340 A Antonio CORDOVA, DIP 0 MARTIN Meraz STICK/TAB PSC LET REAGNT NON-AUTO MICRSCPY ALBUMIN 28683 A Antonio CORDOVA, URINE 0 MARTIN Meraz MICROALBU PSC MIN SEMIQUANT ITATIVE CULTURE 65345 [facility] BACTERIAL 0 [employer] QUANTTATI VE COLONY COUNT URINE TRANSFERA 60981 [facility] SE 0 [employer] ASPARTATE AMINO AST SGOT COLLECTIO 22630 Kt CORDOVA, N VENOUS 0 MARTIN Meraz BLOOD PSC VENIPUNCT URE HEMOGLOBI 55477 [facility] N 0 [employer] GLYCOSYLA COLIN A1C ADLT SZD T4526 NURSES NURSES DISPBL 0 REGISTRY REGISTRY INCONT & HOME & HOME PROD [facility] UNDWEAR MED EA DISPBL T4535 NURSES NURSES [...] HEALH RMNT INCONT EA BLD GLU A4253 HOMERO FINLEYLEN, TEST/REAG 0 INC INC T STRIPS HOME BLD GLU MON-50 ADLT SZD T4526 NURSES NURSES DISPBL 0 REGISTRY REGISTRY INCONT & HOME & HOME PROD HEALH HEALH UNDWEAR MED EA DISPBL T4535 NURSES NURSES LINER/SAKINA 0 REGISTRY REGISTRY ELD/GUARD & HOME & HOME /PAD/UNDG HEALH HEALH RMNT INCONT EA BLD GLU A4253 HOMERO FINLEYLEN, TEST/REAG 0 INC INC T STRIPS HOME [...] PER BOX 9 INFUSION INFUSION OF 100 ADLT SZD T4526 NURSES NURSES DISPBL 9 REGISTRY REGISTRY INCONT & HOME & HOME PROD HEALH HEALH UNDWEAR MED EA DISPBL T4535 NURSES NURSES LINER/SAKINA 9 REGISTRY REGISTRY ELD/GUARD & HOME & HOME /PAD/UNDG HEALH HEALH RMNT INCONT EA DISPBL T4535 NURSES NURSES LINER/SAKINA 9 [...] REGISTRY INCONT & HOME & HOME PROD [facility] UNDWEAR MED EA BLD GLU A4253 NR HOME NR HOME TEST/REAG 9 INFUSION INFUSION T STRIPS HOME BLD GLU MON-50 LANCETS A4259 NR HOME NR HOME PER BOX 9 INFUSION INFUSION OF 100 ADLT SZD T4526 NURSES NURSES DISPBL 9 REGISTRY REGISTRY INCONT & HOME & HOME PROD [facility] UNDWEAR MED EA DISPBL T4535 NURSES NURSES LINER/SAKINA 9 REGISTRY REGISTRY ELD/GUARD & HOME & HOME /PAD/[facility]DG [facility] INCONT EA BLD GLU A4253 NR HOME NR HOME TEST/REAG 9 INFUSION INFUSION T STRIPS HOME BLD GLU MON-50 BLD GLU A4253 NR HOME NR HOME TEST/REAG 9 INFUSION INFUSION T STRIPS HOME BLD GLU MON-50 LANCETS A4259 NR HOME NR HOME PER BOX 9 INFUSION INFUSION OF 100 URINLS 09330 A C TASHA, DIP 9 MARTIN PORTILLO A STICK/TAB PSC LET REAGNT NON-AUTO MICRSCPY DISPBL T4535 NURSES NURSES LINER/SAKINA 9 REGISTRY REGISTRY ELD/GUARD & HOME & HOME /PAD/UNDG [facility] RMNT INCONT EA DIRECT G0154 NURSES NURSES SKILL 9 REGISTRY REGISTRY NURSE & HOME & HOME SERVICES [facility] HH/HOSP[facility] E EA 15 MIN BLD GLU A4253 NR HOME NR HOME TEST/REAG 9 INFUSION INFUSION T STRIPS HOME BLD GLU MON-50 DIRECT G0154 NURSES NURSES SKILL 8 REGISTRY REGISTRY NURSE & HOME & HOME SERVICES [facility] HH/[facility]OSP[facility] E EA 15 MIN DISPBL T4535 NURSES NURSES LINER/SAKINA 8 REGISTRY REGISTRY ELD/GUARD & HOME & HOME /PAD/UNDG [facility] RMNT INCONT EA DISPBL T4535 NURSES NURSES LINER/SAKINA 8 REGISTRY REGISTRY ELD/GUARD & HOME & HOME /PAD/UNDG [facility] RMNT INCONT EA DIRECT G0154 NURSES NURSES SKILL 8 REGISTRY REGISTRY NURSE & HOME & HOME SERVICES [facility] E EA 15 MIN LANCETS A4259 NR HOME NR HOME PER BOX 8 INFUSION INFUSION OF 100 BLD GLU A4253 NR HOME NR HOME TEST/REAG 8 INFUSION INFUSION T STRIPS HOME BLD GLU MON-50 COLLECTIO 95074 Kt DOWNS N VENOUS 8 MARTIN Alvarez BLOOD PSC VENIPUNCT URE GLUCOSE 62879 Kt DOWNS QUANTITAT 8 MARTIN Alvarez BAIRON BLOOD PSC XCPT REAGENT STRIP DIRECT G0154 NURSES NURSES SKILL 8 REGISTRY REGISTRY NURSE & HOME & HOME SERVICES [facility]OS[facility] E EA 15 MIN DIRECT G0154 NURSES NURSES SKILL 8 REGISTRY REGISTRY NURSE & HOME & HOME SERVICES [facility] E EA 15 MIN LANCETS A4259 NR HOME NR HOME PER BOX 8 INFUSION INFUSION OF 100 BLD GLU A4253 NR HOME NR HOME TEST/REAG 8 INFUSION INFUSION T STRIPS HOME BLD GLU MON-50 DIRECT G0154 NURSES NURSES SKILL 8 REGISTRY REGISTRY NURSE & HOME & HOME SERVICES [facility] E EA 15 MIN DISPBL T4535 NURSES NURSES LINER/SAKINA 8 REGISTRY REGISTRY ELD/GUARD & HOME & HOME /PAD/UNDG [facility] RMNT INCONT EA DIRECT G0154 NURSES NURSES SKILL 8 REGISTRY REGISTRY NURSE & HOME & HOME SERVICES [facility] E EA 15 MIN BLD GLU A4253 NR HOME NR HOME TEST/REAG 8 INFUSION INFUSION T STRIPS HOME BLD GLU MON-50 DIRECT G0154 NURSES NURSES SKILL 8 REGISTRY REGISTRY NURSE & HOME & HOME SERVICES [facility] E EA 15 MIN DISPBL T4535 NURSES NURSES LINER/SAKINA 8 REGISTRY REGISTRY ELD/GUARD & HOME & HOME /PAD/UNDG [facility] RMNT INCONT EA DIRECT G0154 NURSES NURSES SKILL 8 REGISTRY REGISTRY NURSE & HOME & HOME SERVICES [facility] E EA 15 MIN DIRECT G0154 NURSES NURSES SKILL 8 REGISTRY REGISTRY NURSE & HOME & HOME SERVICES [facility] E EA 15 MIN DISPBL T4535 NURSES NURSES LINER/SAKINA 8 REGISTRY REGISTRY ELD/GUARD & HOME & HOME /PAD/UNDG [facility] RMNT INCONT EA LANCETS A4259 NR HOME NR HOME PER BOX 8 INFUSION INFUSION OF 100 BLD GLU A4253 NR HOME NR HOME TEST/REAG 8 INFUSION INFUSION T STRIPS HOME BLD GLU MON-50 DIRECT G0154 NURSES NURSES SKILL 8 REGISTRY REGISTRY NURSE & HOME & HOME SERVICES [facility] E EA 15 MIN DISPBL T4535 NURSES NURSES LINER/SAKINA 8 REGISTRY REGISTRY ELD/GUARD & HOME & HOME /PAD/UNDG [facility] RMNT INCONT EA DISPBL T4535 NURSES NURSES LINER/SAKINA 8 REGISTRY REGISTRY ELD/GUARD & HOME & HOME /PAD/UNDG [facility] RMNT INCONT EA DIRECT G0154 NURSES NURSES SKILL 8 REGISTRY REGISTRY NURSE & HOME & HOME SERVICES [facility] E EA 15 MIN LANCETS A4259 NR HOME NR HOME PER BOX 8 INFUSION INFUSION OF 100 BLD GLU A4253 NR HOME NR HOME TEST/REAG 8 INFUSION INFUSION T STRIPS HOME BLD GLU MON-50 DIRECT G0154 NURSES NURSES SKILL 8 REGISTRY REGISTRY NURSE & HOME & HOME SERVICES [facility] E EA 15 MIN DIRECT G0154 NURSES NURSES SKILL 8 REGISTRY REGISTRY NURSE & HOME & HOME SERVICES [facility] E EA 15 MIN BLD GLU A4253 NR HOME NR HOME TEST/REAG 8 INFUSION INFUSION T STRIPS HOME BLD GLU MON-50 DIRECT G0154 NURSES NURSES SKILL 8 REGISTRY REGISTRY NURSE & HOME & HOME SERVICES [facility] E EA 15 MIN DISPBL T4535 NURSES NURSES LINER/SAKINA 8 REGISTRY REGISTRY ELD/GUARD & HOME & HOME /PAD/UNDG [facility] RMNT INCONT EA DIRECT G0154 NURSES NURSES SKILL 8 REGISTRY REGISTRY NURSE & HOME & HOME SERVICES [facility] E EA 15 MIN DIRECT G0154 NURSES NURSES SKILL 8 REGISTRY REGISTRY NURSE & HOME & HOME SERVICES [facility] E EA 15 MIN DIRECT G0154 NURSES NURSES SKILL 8 REGISTRY REGISTRY NURSE & HOME & HOME SERVICES [facility] E EA 15 MIN DIRECT G0154 NURSES NURSES SKILL 8 REGISTRY REGISTRY NURSE & HOME & HOME SERVICES [facility] E EA 15 MIN DIRECT G0154 NURSES NURSES SKILL 8 REGISTRY REGISTRY NURSE & HOME & HOME SERVICES [facility] E EA 15 MIN DIRECT G0154 NURSES NURSES SKILL 8 REGISTRY REGISTRY NURSE & HOME & HOME SERVICES [facility] E EA 15 MIN DISPBL T4535 NURSES NURSES LINER/SAKINA 8 REGISTRY REGISTRY ELD/GUARD & HOME & HOME /PAD/UNDG [facility] RMNT INCONT EA NORMAL A4256 NR HOME NR HOME LOW AND 8 INFUSION INFUSION HIGH CALIBRATO R SOLUTION/ CHIPS BLD GLU A4253 NR HOME NR HOME TEST/REAG 8 INFUSION INFUSION T STRIPS HOME BLD GLU MON-50 LANCETS A4259 NR HOME NR HOME PER BOX 8 INFUSION INFUSION OF 100 SPRING-[place] A4258 NR HOME NR HOME WERED 8 INFUSION INFUSION DEVICE FOR LANCET EACH DIRECT G0154 NURSES NURSES SKILL 8 REGISTRY REGISTRY NURSE & HOME & HOME SERVICES [facility] E EA 15 MIN DISPBL T4535 NURSES NURSES LINER/SAKINA 8 REGISTRY REGISTRY ELD/GUARD & HOME & HOME /PAD/UNDG [facility] RMNT INCONT EA DIRECT G0154 NURSES NURSES SKILL 8 REGISTRY REGISTRY NURSE & HOME & HOME SERVICES [facility] E EA 15 MIN DIRECT G0154 NURSES NURSES SKILL 8 REGISTRY REGISTRY NURSE & HOME & HOME SERVICES [facility] E EA 15 MIN DIRECT G0154 NURSES NURSES SKILL 8 REGISTRY REGISTRY NURSE & HOME & HOME SERVICES [facility] E EA 15 MIN LANCETS A4259 NR HOME NR HOME PER BOX 8 INFUSION INFUSION OF 100 BLD GLU A4253 NR HOME NR HOME TEST/REAG 8 INFUSION INFUSION T STRIPS HOME BLD GLU MON-50 DIRECT G0154 NURSES NURSES SKILL 8 REGISTRY REGISTRY NURSE & HOME & HOME SERVICES [facility] E EA 15 MIN DIRECT G0154 NURSES NURSES SKILL 8 REGISTRY REGISTRY NURSE & HOME & HOME SERVICES [facility] E EA 15 MIN DISPBL T4535 NURSES NURSES LINER/SAKINA 8 REGISTRY REGISTRY ELD/GUARD & HOME & HOME /PAD/UNDG [facility] RMNT INCONT EA DIRECT G0154 NURSES NURSES SKILL 8 REGISTRY REGISTRY NURSE & HOME & HOME SERVICES [facility] E EA 15 MIN DIRECT G0154 NURSES NURSES SKILL 8 REGISTRY REGISTRY NURSE & HOME & HOME SERVICES [facility] E EA 15 MIN DISPBL T4535 NURSES NURSES LINER/SAKINA 8 REGISTRY REGISTRY ELD/GUARD & HOME & HOME /PAD/UNDG [facility] RMNT INCONT EA DIRECT G0154 NURSES NURSES SKILL 8 REGISTRY REGISTRY NURSE & HOME & HOME SERVICES [facility] E EA 15 MIN DIRECT G0154 NURSES NURSES SKILL 8 REGISTRY REGISTRY NURSE & HOME & HOME SERVICES [facility] E EA 15 MIN DIRECT G0154 NURSES NURSES SKILL 8 REGISTRY REGISTRY NURSE & HOME & HOME SERVICES [facility] E EA 15 MIN BLD GLU A4253 NR HOME NR HOME TEST/REAG 8 INFUSION INFUSION T STRIPS HOME BLD GLU MON-50 DISPBL T4535 NURSES NURSES LINER/SAKINA 8 REGISTRY REGISTRY ELD/GUARD & HOME & HOME /PAD/UNDG [facility] RMNT INCONT EA DIRECT G0154 NURSES NURSES SKILL 8 REGISTRY REGISTRY NURSE & HOME & HOME SERVICES [facility] E EA 15 MIN DIRECT G0154 NURSES NURSES SKILL 8 REGISTRY REGISTRY NURSE & HOME & HOME SERVICES [facility] E EA 15 MIN DIRECT G0154 NURSES NURSES SKILL 8 REGISTRY REGISTRY NURSE & HOME & HOME SERVICES [facility] E EA 15 MIN DIRECT G0154 NURSES NURSES SKILL 8 REGISTRY REGISTRY [facility] E EA 15 MIN DIRECT G0154 NURSES NURSES SKILL 8 REGISTRY REGISTRY NURSE & HOME & HOME SERVICES [facility] HH/HOS[facility] E EA 15 MIN DIRECT G0154 NURSES NURSES SKILL 8 REGISTRY REGISTRY NURSE & HOME & HOME SERVICES [facility] HH/HOSP[facility] E EA 15 MIN DISPBL [id number] NURSES NURSES LINER/SAKINA 8 REGISTRY REGISTRY ELD/GUARD & HOME & HOME /PAD/UNDG [facility] RMNT INCONT EA Encounters Encounter Start End Date Code Location Performer Type Date OFFICE 66376 [place] [facility] 7 7 MEDICAL T [facility] 60 SERV MINUTES [facility] [place] [facility] OFFICE 02597 [facility] [place] OUTPATIEN 7 7 PHYSICIAN A T VISIT S GROUP 15 MINUTES [facility] CH[facility] - 7 7 [facility] OUTPATIEN INC [facility] CHINO - 7 7 [facility] OUTPATIEN [facility] CHINO - 7 7 [facility] OUTPATIEN [facility] EMERGENCY 48676 PATI [facility]PT 7 7 PHYSICIAN VISIT S, [facility] HIGH [facility]VERITY& THREAT [facility] CHINO - OTHER 7 7 [facility] CHINO [facility] OTHER 7 7 [facility] CHINO - 7 7 [facility] OUTPATIEN INC [facility] CHINO - 7 7 [facility] OUTPATIEN INC [facility] CHINO - 7 7 [facility] OUTPATIEN [facility] OFFICE 42058 CANDELARIA HAYNES OUTPATIEN 6 6 [facility] 10 MINUTES EMERGENCY 50317 [facility] 6 6 [facility]PARTMEN [facility] T VISIT LOW/MODER SEVERITY HOSPITAL [facility] - 6 6 [facility] OUTPATIEN INC T OFFICE 29868 A Antonio MENON OUTPATIEN 6 6 MARTIN ROD T VISIT PSC 15 MINUTES EMERGENCY 80223 PATI OLSON 6 6 [facility]URGE NT SEVERITY OFFICE 00012 FALLIS CAROL OUTPATIEN 6 6 FERMIN RAMU T NEW 30 MINUTES OFFICE 28678 A C TASHA ELPIDIO OUTPATIEN 6 6 MARTIN VIEYRA T VISIT PSC 15 MINUTES HOSPITAL [facility] - 6 6 N OUTPATIEN COMMUNTIY T HOSPITA EMERGENCY 35203 [facility] 6 6 JULIO [facility] EMERGENCY T VISIT PHYS HIGH/URGE NT SEVERITY EMERGENCY 85438 [facility] MODERATE SEVERITY EMERGENCY 34518 [facility] 6 PHYSICIAN JEREMIAS VISIT [facility] HIGH SEVERITY& THREAT FUNJ OFFICE 01125 A Antonio RODRIGUEZ OUTPATIEN 6 6 MARTIN SMYTH T VISIT PSC 15 MINUTES OFFICE 29858 A Antonio CORDOVA ELPIDIO OUTPATIEN 6 6 MARTIN VIEYRA T VISIT PSC 25 MINUTES OFFICE 98281 A Antonio MAGALLANES OUTPATIEN 5 5 MARTIN VIEYRA T VISIT PSC 15 MINUTES OFFICE 09569 A Antonio LOWERY OUTPATIEN 4 4 MARTIN VIEYRA T VISIT PSC 15 MINUTES HOSPITAL [facility] - 4 4 [facility] - 4 4 [facility]PAT[facility] - 3 3 [facility] OUTPATIEN INC [facility] - 3 3 [facility] OUTPATIEN INC T EMERGENCY 51866 [facility] [place] 3 3 EMERGENCY BRO DEPARTMEN SERVICES T VISIT HIGH/URGE NT SEVERITY EMERGENCY 11464 [facility] 3 3 [facility] DEPARTMEN INC T VISIT LOW/MODER SEVERITY HOSPITAL [facility] - 3 3 [facility] OUTPATIEN INC T HOME NURSES HEALTH, 3 3 REGISTRY OTHER HOME [facility], 3 3 REGISTRY OUTPATIEN & HOME HE T EMERGENCY 83868 [facility] ALL[facility] DEPT 3 3 EMERGENCY III [facility] VISIT SERVICES HIGH SEVERITY& THREAT [facility], 3 3 REGISTRY OTHER HOME [facility], 3 3 REGISTRY OUTPATI[facility] & [facility], 3 3 REGISTRY OTHER HOME [facility], 3 3 REGISTRY OUTPATIEN & HOME HE T [facility] NURSES HEALTH, 3 3 REGISTRY OUTPATIEN & HOME HE T HOME NURSES HEALTH, 3 3 REGISTRY OUTPATIEN & HOME HE T [facility] NURSES HEALTH, 3 3 REGISTRY OTHER [facility] [place] [facility] T EMERGENC[facility] 53025 [place] 3 3 [facility] DEPARTMEN INC [...] 2 2 REGISTRY OTHER HOME [facility] OFFICE 63095 A C TASHA ELPIDIO OUTPATIEN 2 2 MARTIN VIEYRA T VISIT PSC 25 MINUTES HOME NURSES HEALTH, 2 2 REGISTRY OUTPATIEN & HOME HE T HOME NURSES HEALTH, 2 2 REGISTRY OTHER HOME [facility], 2 2 REGISTRY OUTPATIEN & HOME HE T [facility]SES HEALTH, 2 2 REGISTRY OTHER HOME [facility], 2 2 REGISTRY OUTPATIEN & HOME HE T OFFICE 40512 A C TASHA ELPIDIO OUTPATIEN 2 2 MARTIN VIEYRA T VISIT PSC 15 MINUTES HOME NURSES HEALTH, 2 2 REGISTRY OTHER HOME [facility], 2 2 REGISTRY OUTPATIEN & HOME HE T HOME NURSES HEALTH, 2 2 REGISTRY OTHER HOME [facility], 2 2 REGISTRY OUTPATIEN & HOME HE T OFFICE 64225 A Antonio CORDOVA ELPIDIO OUTPATIEN 2 2 MARTIN VIEYRA T VISIT PSC 10 MINUTES HOME NURSES HEALTH, 2 2 REGISTRY OTHER HOME [facility] OFFICE 76656 A C TASHA ELPIDIO OUTPATIEN 2 2 MARTIN VIEYRA T VISIT PSC 15 MINUTES HOME NURSES HEALTH, 2 2 REGISTRY OTHER [facility] [place] [facility] 2 2 [facility] INPATIENT [facility] EMERGENCY 04182 PING ALLRED DEPT 2 2 EMERGENCY III [facility] VISIT SERVICES HIGH SEVERITY& THREAT [facility]URSES HEALTH, 2 2 REGISTRY OTHER [...] HEALTH, 1 1 REGISTRY OTHER [facility] [place] [facility] [...] REGISTRY OUTPATIEN & HOME HE T OFFICE 80313 Kt CORDOVA ELPIDIO OUTPATIEN 1 1 MARTIN VIEYRA T [...] REGISTRY OUTPATIEN & HOME HE T OFFICE 66425 A C TASHA ELPIDIO OUTPATIEN 1 1 MARTIN VIEYRA T VISIT PSC 25 MINUTES HOME NURSES HEALTH, 1 1 REGISTRY OUTPATIEN & [facility] T [facility] N[facility]SES HEALTH, 0 0 REGISTRY OUTPATIEN & HOME HE T OFFICE 28335 A C TASHA ELPIDIO OUTPATIEN 0 0 MARTIN VIEYRA T VISIT PSC 15 MINUTES [facility]SES [facility], 0 0 REGISTRY OUTPATIEN & HOME HE T HOME NURSES HEALTH, 0 0 REGISTRY OUTPATIEN & HOME HE T OFFICE 88902 A C OUTPATIEN 0 0 MARTIN VIEYRA T VISIT PSC 25 MINUTES HOME NURSES HEALTH, 0 0 REGISTRY OUTPATIEN & [facility] [place] [facility]SES [facility], 0 0 REGISTRY OUTPATIEN & HOME HE T HOME N[facility]SES HEALTH, 0 0 REGISTRY OUTPATIEN & HOME HE T OFFICE 63530 A C TASHA, OUTPATIEN 0 0 MARTIN Meraz T VISIT PSC 15 MINUTES HOME NURSES HEALTH, 0 0 REGISTRY OUTPATIEN & HOME T [facility]ALH [facility]SES [facility], 0 0 REGISTRY OUTPATIEN & HOME T HEALH OFFICE 29112 ELIJAH STEEL 0 0 MARTIN Meraz T VISIT PSC [...] REGISTRY OUTPATIEN & HOME T HEALH OFFICE 68056 ELIJAH STEEL 9 9 MARTIN Heard VISIT PSC 15 MINUTES HOME NURSES HEALTH, 9 9 REGISTRY OUTPATIEN & HOME T HEALH HOME [facility]SES HE[facility], 8 8 REGISTRY OUTPATIEN & HOME T HEALH OFFICE 61130 Kt DOWNS 8 8 MARTIN Heard VISIT PSC 15 MINUTES HOME NURSES HEALTH, 8 8 REGISTRY OUTPATIEN & HOME T HEALH HOME NURSES HEALTH, 8 8 REGISTRY OUTPATIEN & HOME T [facility]ALH [facility]ES HE[facility], 8 8 REGISTRY OUTPATIEN & HOME T HEALH OFFICE 20778 Kt DOWNS OUTPATIPAUL 8 8 MARTIN Heard VISIT PSC 15 [...] REGISTRY OUTPATIEN & HOME T HEALH OFFICE 98131 Kt DOWNS 8 8 MARTIN Heard VISIT PSC 25 MINUTES HOME NURSES HEALTH, 8 8 REGISTRY OUTPATIEN & HOME T HEALH
--- OUTSIDE RECORDS SUMMARY | 2017-04-26 00:45 | External Medical Summary Rpt | CCD ---
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 SUPPLY REPL BEV A4235 [facility] 4 [facility] MED Sakti3ES MEDICAL MEDICAL DK BG SUPPLY SUPPLY MON OWN PT EA BLD GLU A4253 [facility] TEST/REAG 4 [facility] T [facility] MEDICAL MEDICAL HOME BLD SUPPLY SUPPLY GLU MON-50 SPRING-PO A4258 [facility] WERED 4 [facility] DEVICE MEDICAL MEDICAL FOR SUPPLY SUPPLY LANCET EACH BLD GLU A4253 [facility] TEST/REAG 4 [facility] T [facility] MED[facility] MEDICAL HOME BLD SUPPLY SUPPLY GLU MON-50 LANCETS A4259 [facility] PER BOX [address] [place] [address] MEDICAL MEDICAL SUPPLY SUPPLY NORMAL A4256 [facility] HIGH MEDICAL MEDICAL CALIBRATO SUPPLY SUPPLY R SOLUTION/ CHIPS PHYSICAL 04774 CHINO MAGANA THERAPY 4 [facility] EVALUATIO INC INC N THERAPEUT 99550 CHINO MAGANA IC PX 1/> 4 [facility] AREAS INC INC EACH 15 MIN EXERCISES RADEX 88424 CHINO MAGANA WRIST 4 [facility] COMPLETE INC INC MINIMUM 3 VIEWS RADEX 08490 [place]EL WRIST 3 MEDICAL JOYCELYN COMPLETE IMAGING MINIMUM 3 ASS VIEWS APPLICATI 99499 [facility] PETTEY ON CAST 3 PHYSICIAN JAM ELBOW S GROUP FINGER SHORT ARM CAST Q4010 [facility] PETTEY SUPPLIES 3 PHYSICIAN JAM SHORT ARM S GROUP CAST ADULT FIBERGLAS S RADEX 71181 [facility] MICHAEL WRIST 2 3 MEDICAL JOYCELYN VIEWS IMAGING ASS RADEX 54291 CHINO MAGANA WRIST 3 [facility] COMPLETE INC INC MINIMUM 3 VIEWS LANCETS A4259 [facility] PER BOX 3 STATES STATES [facility] MEDICAL MEDICAL SUPPLY SUPPLY NORMAL A4256 [facility] 3 [facility] HIGH MEDICAL MEDICAL CALIBRATO SUPPLY SUPPLY R SOLUTION/ CHIPS BLD GLU A4253 [facility] [place] [place] TEST/REAG 3 [facility] STATES T [facility]IPS MEDICAL MEDICAL HOME BLD SUPPLY SUPPLY GLU SPRING-PO A4258 [facility] [place] [place] WERE 3 [facility] DEVICE MEDICAL MEDICAL FOR SUPPLY SUPPLY LANCET EACH CLTX DSTL 72929 [facility] PETTEY RADIAL 3 PHYSICIAN JAM FX/EPIPHY S GROUP SL SEP W/O MANJ CAST Q4010 [facility] PETTEY SUPPLIES 3 PHYSICIAN JAM SHORT ARM S GROUP CAST ADULT FIBERGLAS S APPLICATI 67518 [facility] ON SHORT 3 EMERGENCY BRO ARM SERVICES SPLINT FOREARM-H AND STATIC RADEX 41955 CHINO MAGANA HAND 3 [facility] MINIMUM 3 INC INC VIEWS RADEX 86546 [facility] MICHAEL ELBOW 3 MEDICAL JOYCELYN COMPLETE IMAGING MINIMUM 3 ASS VIEWS RADEX 27590 [facility] HAND 2 3 MEDICAL JOYCELYN VIEWS IMAGING ASS RADEX 74251 [facility] MICHAEL WRIST 3 MEDICAL JOYCELYN COMPLETE IMAGING MINIMUM 3 ASS VIEWS LANCETS A4259 [facility] PER BOX 3 STATES STATES [facility] MEDICAL MEDICAL SUPPLY SUPPLY NORMAL A4256 [facility] HIGH MEDICAL MEDICAL CALIBRATO SUPPLY SUPPLY R SOLUTION/ CHIPS BLD GLU A4253 [facility] TEST/REAG 3 [facility] STATES T [facility] MED[facility] MEDICAL HOME [...] [place] [address] [facility] HEAD/BRAI 3 MEDICAL MEDICAL N W/O IMAGING [...] RMNT INCONT EA INCONTINE T4541 NURSES NURSES COE 3 REGISTRY REGISTRY PRODUCT & HOME HE & HOME HE DISPOSABL E UNDPAD LARGE EA RADEX 04004 CHINO MAGANA HAND 3 [facility] MINIMUM 3 INC INC VIEWS ADLT SZD T4527 NURSES NURSES DISPBL 3 REGISTRY REGISTRY INCONT & HOME HE & HOME HE PROD UNDWEAR/P ULLON EA DISPBL T4535 NURSES NURSES LINER/SAKINA 3 REGISTRY REGISTRY ELD/GUARD & HOME HE & HOME HE /PAD/UNDG RMNT INCONT EA INCONTINE T4541 NURSES NURSES COE 3 REGISTRY REGISTRY PRODUCT & HOME HE [...] HE PROD UNDWEAR/P ULLON LG EA RADEX 73692 [place] HAND 3 MEDICAL JOYCELYN MINIMUM 3 IMAGING VIEWS ASS RADEX 83783 [place] ELBOW 2 3 MEDICAL JOYCELYN VIEWS IMAGING ASS APPLICATI 23228 CHINO MAGANA ON SHORT 3 [facility] ARM INC INC SPLINT FOREARM-H AND STATIC RADEX 60456 [place] HAND 3 MEDICAL JOYCELYN MINIMUM 3 IMAGING VIEWS ASS LANCETS A4259 [facility] PER BOX 3 STATES STATES OF 100 MEDICAL MEDICAL SUPPLY SUPPLY NORMAL A4256 [facility] [place] LOW AND 3 STATES STATES HIGH MEDICAL MEDICAL CALIBRATO SUPPLY SUPPLY R SOLUTION/ CHIPS BLD GLU A4253 [facility] TEST/REAG 3 STATES STATES T [facility] HOME BLD SUPPLY SUPPLY GLU MON-50 REPL BEV A4233 [facility] [place] [place] ALKALINE 3 STATES STATES NOT J MEDICAL MEDICAL CELL DK SUPPLY SUPPLY BG MON OWND PT SPRING-PO A4258 [facility] WERED 3 STATES STATES DEVICE MEDICAL MEDICAL FOR SUPPLY SUPPLY LANCET EACH DISPBL T4535 NURSES NURSES LINER/SAKINA 3 REGISTRY REGISTRY ELD/GUARD & HOME HE & HOME HE /PAD/UNDG RMNT INCONT EA NON-INVAS 79431 EDGAR RODRIGUEZ BAIRON 3 MEDICAL JOYCELYN PHYSIOLOG [...] SUPPLIES SUPPLIES HOME BLD GLU MON-50 BASIC 48634 [facility] METABOLIC 3 DIAGNOSTI DIAGNOSTI PANEL [...] [employer] R SOLUTION/ CHIPS ADLT [facility] T4527 NURSES NURSES DISPBL 3 REGISTRY REGISTRY [...] MEDICAL MEDICAL HT EQUIPME EQUIPME WHEELCHAI R OMAHA- A4258 [place] WERED 2 [facility] [...] SPRING-PO A4258 ARRIVA ARRIVA WERED 2 MEDICAL ATHLETIC EVENTS SCORER FOR LANCET EACH BLD GLU A4253 ARRIVA [...] MEDICAL MEDICAL SUPPLY SUPPLY REPL BEV A4235 [facility] LITHIUM 2 STATES STATES MED NECES MEDICAL MEDICAL DK BG SUPPLY SUPPLY MON OWN PT EA NORMAL A4256 [facility] [place] LOW AND 2 [facility] STATES HIGH MEDICAL MEDICAL CALIBRATO SUPPLY SUPPLY R SOLUTION/ CHIPS BLD GLU A4253 [facility] TEST/REAG 2 [facility] STATES T [facility] MEDICAL MEDICAL HOME BLD SUPPLY SUPPLY GLU MON-50 HIGH K0004 ALEC ALEC STRENGTH 2 HOME HOME [facility] EQUIPME EQUIPME WHEELCHAI R DISPBL T4535 NURSES NURSES LINER/SAKINA 2 REGISTRY REGISTRY ELD/GUARD & HOME HE & HOME HE /PAD/UNDG RMNT INCONT EA ADLT [facility] T4527 NURSES NURSES DISPBL 2 REGISTRY REGISTRY INCONT & HOME HE & HOME HE PROD UNDWEAR/P ULLON LG DISPBL T4535 NURSES NURSES LINER/SAKINA 2 REGISTRY REGISTRY ELD/GUARD & HOME HE & HOME HE /PAD/UNDG RMNT INCONT EA ADLT [facility] T4527 NURSES NURSES DISPBL 2 REGISTRY REGISTRY INCONT & HOME HE & HOME HE PROD UNDWEAR/P ULLON LG [facility] K0004 ALEC ALEC STRENGTH 2 HOME [...] HOME HE /PAD/UNDG RMNT INCONT EA ADLT [facility] T4527 NURSES NURSES DISPBL 2 REGISTRY REGISTRY INCONT & HOME HE & HOME HE PROD UNDWEAR/P ULLON LG EA DISPBL T4535 NURSES NURSES LINER/SAKINA 2 REGISTRY REGISTRY ELD/GUARD & HOME HE & HOME HE /PAD/UNDG RMNT INCONT EA ADLT [facility] T4527 NURSES NURSES DISPBL 2 REGISTRY REGISTRY INCONT & HOME HE & HOME HE PROD UNDWEAR/P ULLON LG EA NORMAL A4256 [facility] [place] LOW AND 2 STATES STATES HIGH MEDICAL MEDICAL CALIBRATO SUPPLY SUPPLY R SOLUTION/ CHIPS BLD GLU A4253 [facility] TEST/REAG 2 STATES STATES T [facility] MEDICAL HOME BLD SUPPLY SUPPLY GLU MON-50 LANCETS A4259 [facility] PER BOX [address] [place] [address] MEDICAL MEDICAL SUPPLY SUPPLY HIGH K0004 ALEC ALEC STRENGTH 2 HOME HOME [facility] HT EQUIPME EQUIPME WHEELCHAI R DISPBL T4535 NURSES NURSES LINER/SAKINA 2 REGISTRY REGISTRY ELD/GUARD & HOME HE & HOME HE /PAD/UNDG RMNT INCONT EA ADLT [facility] T4527 NURSES NURSES DISPBL 2 REGISTRY REGISTRY INCONT & HOME HE & HOME HE PROD UNDWEAR/P ULLON LG EA COLLECTIO 42593 A Antonio MAGALLANES N VENOUS 2 MARTIN VIEYRA BLOOD [facility] VENIPUNCT URE GLUCOSE 73318 A Antonio MAGALLANES QUANTITAT 2 MARTIN VIEYRA BAIRON BLOOD [facility] XCPT REAGENT STRIP HEMOGLOBI 44087 A Antonio MAGALLANES N 2 MARTIN VIEYRA GLYCOSYLA [facility] COLIN A1C BASIC 65440 [facility] METABOLIC 2 DIAGNOSTI DIAGNOSTI PANEL CS CS CALCIUM TOTAL LIPID 27713 A Antonio CORDOVA ELPIDIO PANEL 2 MARTIN VIEYRA [facility] HIGH K0004 ALEC ALEC STRENGTH 2 HOME HOME [facility] HT EQUIPME EQUIPME WHEELCHAI R ADLT [facility] T4527 NURSES NURSES DISPBL 2 REGISTRY REGISTRY INCONT & HOME HE & HOME HE PROD UNDWEAR/P ULLON LG EA LANCETS A4259 ARRIVA ARRIVA PER BOX 2 MEDICAL MEDICAL OF 100 [facility] A4258 ARRIVA ARRIVA WERED 2 MEDICAL ATHLETIC EVENTS SCORER FOR LANCET EACH BLD GLU A4253 ARRIVA [...] /PAD/UNDG RMNT INCONT EA SPRING-PO A4258 [facility] [place] WERED 2 STATES STATES DEVICE MEDICAL MEDICAL FOR SUPPLY SUPPLY LANCET EACH BLD GLU A4253 [facility] TEST/REAG 2 [facility] STATES T [facility] MEDICAL MEDICAL HOME BLD SUPPLY SUPPLY GLU MON-50 NORMAL A4256 [facility] LOW AND 2 [facility] STATES HIGH MEDICAL MEDICAL CALIBRATO SUPPLY SUPPLY R SOLUTION/ CHIPS LANCETS A4259 [facility] PER BOX 2 [facility] STATES OF [facility] MEDICAL MEDICAL SUPPLY SUPPLY REPL BEV A4235 [facility] LITHIUM 2 STATES STATES MED NECES MEDICAL MEDICAL DK BG SUPPLY SUPPLY MON OWN PT EA DISPBL T4535 NURSES NURSES LINER/SAKINA 2 REGISTRY REGISTRY ELD/GUARD & HOME HE & HOME HE /PAD/UNDG RMNT INCONT EA ADLT [facility] T4527 NURSES NURSES DISPBL 2 REGISTRY REGISTRY INCONT & HOME HE & HOME HE PROD UNDWEAR/P ULLON LG [facility] K0004 ALEC MICHAEL STRENGTH 2 HOME HOME [facility] HT EQUIPME EQUIPME WHEELCHAI R [facility] K0004 ALEC ESPINOSARELL STRENGTH 2 HOME HOME [facility] HT EQUIPME EQUIPME WHEELCHAI [facility] E2601 ALEC PATELLCHAIR 2 HOME HOME SEAT MEDICAL MEDICAL CUSHN EQUIPME EQUIPME WIDTH < 22 IN DEPTH [facility] 26073 Kt [facility] DISCHARGE 2 MARTIN VIEYRA DAY PSC MANAGEMEN T 30 MIN/< COMMODE E0163 ALEC MICHAEL CHAIR 2 HOME HOME MOBILE OR MEDICAL MEDICAL EQUIPME EQUIPME STATIONAR Y W/FIXED ARMS SBSQ 96152 A Antonio [facility] 2 MARTIN VIEYRA CARE/DAY PSC 15 MINUTES INITIAL 39120 Kt [facility] 2 MARTIN VIEYRA CARE/[place] [address] [place] [address] EDGAR MICHAEL CERVICAL 2 MEDICAL JOYCELYN SPINE W/O IMAGING CONTRAST ASS MATERIAL 3D 36005 EDGAR JOHNSONUTCHER RENDERING 2 MEDICAL JOYCELYN IMAGING W/INTERP& ASS POSTPROC DIFF WORK STATION ECG 97464 CHINO GUTIERREZ ROUTINE 2 [facility] W/LEAST P 12 LDS I&R ONLY LANCETS A4259 GLOBAL GLOBAL PER BOX 2 MEDICAL MEDICAL OF 100 DIRECT DIRECT BLD GLU A4253 GLOBAL GLOBAL TEST/REAG 2 MEDICAL MEDICAL T STRIPS DIRECT DIRECT HOME BLD GLU MON-50 BLD GLU A4253 [facility] TEST/REAG 2 [facility] STATES T [facility]IPS MEDICAL MEDICAL HOME BLD SUPPLY SUPPLY GLU MON-50 NORMAL A4256 [facility] HIGH MEDICAL MEDICAL CALIBRATO SUPPLY SUPPLY R SOLUTION/ CHIPS LANCETS A4259 [facility] PER BOX 2 STATES STATES OF [facility] MEDICAL MEDICAL SUPPLY SUPPLY DISPBL T4535 NURSES [...] HE PROD UNDWEAR/P ULLON LG EA TRANSFERA 08988 CHINO MAGANA SE 1 [facility] ASPARTATE INC INC AMINO AST SGOT LIPID 47788 CHINO MAGANA PANEL 1 [facility] INC INC ADLT SZD T4527 NURSES NURSES DISPBL 1 REGISTRY REGISTRY INCONT & HOME HE & HOME HE PROD UNDWEAR/P ULLON LG EA DISPBL T4535 NURSES NURSES LINER/SAKINA 1 REGISTRY REGISTRY ELD/GUARD & HOME HE & HOME HE /PAD/UNDG RMNT INCONT EA SPRING-PO A4258 UNITED [facility] WERED 1 [facility] DEVICE MEDICAL MEDICAL FOR SUPPLY SUPPLY [...] HOME HE /PAD/UNDG RMNT [facility]CONT [facility] A[facility]20 LKLP LKLP TRNSPRT: 1 COMMUNITY COMMUNITY [...] 1 MEDICAL MEDICAL OF 100 DIRECT DIRECT [facility] A4258 GLOBAL GLOBAL WERED 1 MEDICAL ATHLETIC EVENTS SCORER DIRECT DIRECT FOR LANCET EACH ADLT D [...] DIABETIC OF 100 [employer] INC INC [facility] A4258 DIRECT DIRECT WERED 1 DIABETIC DIABETIC DEVICE SOURCE SOURCE FOR INC INC LANCET EACH BLD GLU A4253 DIRECT DIRECT TEST/REAG 1 DIABETIC DIABETIC T STRIPS SOURCE SOURCE HOME BLD INC INC GLU MON-50 NORMAL A4256 DIRECT DIRECT LOW AND 1 DIABETIC DIABETIC HIGH SOURCE SOURCE CALIBRATO INC INC R SOLUTION/ CHIPS LIPID 24562 CHINO MAGANA PANEL 1 [facility] INC INC HEMOGLOBI 66599 CHINO MAGANA N 1 [facility] GLYCOSYLA INC INC COLIN A1C DISPBL [...] DIABETIC OF 100 SUPPLY SUPPLY INC INC [facility] A4258 DOCTOR DOCTOR WERED 1 DIABETIC DIABETIC [...] HE & HOME HE PROD UNDWEAR/P [facility] DISPBL T4535 NURSES NURSES LINER/SAKINA 1 REGISTRY [...] & HOME HE PROD UNDWEAR/P [facility] T4527 NURSES NURSES DISPBL 1 REGISTRY REGISTRY INCONT & HOME HE & HOME HE PROD UNDWEAR/P [facility] DISPBL T4535 NURSES NURSES LINER/SAKINA 1 REGISTRY [...] 100 A4258 ARRIVA ARRIVA WERED 1 MEDICAL ATHLETIC EVENTS SCORER FOR LANCET EACH NORMAL A4256 ARRIVA ARRIVA [...] LLC LLC HOME BLD GLU MON-50 URINLS 49607 A Antonio CORDOVA ELPIDIO DIP 1 MARTIN VIEYRA STICK/TAB PSC LET REAGNT NON-AUTO MICRSCPY COLLECTIO 53473 A Antonio CORDOVA ELPIDIO N VENOUS 1 MARTIN VIEYRA BLOOD PSC VENIPUNCT URE GLUCOSE 11294 A Antonio CORDOVA ELPIDIO QUANTITAT 1 MARTIN [...] INCL CAD WHEN PERF; UNI US BREAST 83051 CHINO MAGANA REAL 0 [facility] MEM [...] HOME HE PROD UNDWEAR/P ULLON LG EA [facility] A4258 DOCTOR DOCTOR WERED 0 DIABETIC DIABETIC [...] 0 MEDICAL MEDICAL OF 100 SCREENING G0202 [place] 0 MEDICAL JOYCELYN MAMMOGRAP IMAGING HY DANIA ASS INCL CAD WHEN PERFORMD - 73500 [place] AIDED 0 MEDICAL JOYCELYN DETECTION IMAGING [...] HOME HE /PAD/UNDG RMNT INCONT EA HEMOGLOBI 39170 LAB SHIN LAB SHIN N 0 AMERIC AMERIC GLYCOSYLA HOLDING HOLDING COLIN A1C BLOOD 39617 LAB SHIN LAB SHIN COUNT 0 AMERIC AMERIC COMPLETE HOLDING HOLDING AUTO&AUTO DIFRNTL WBC COLLECTIO 25362 A C SALAZAR A N VENOUS 0 MARTIN VIEYRA BLOOD PSC VENIPUNCT URE TRANSFERA 81199 LAB SHIN LAB SHIN SE 0 AMERIC AMERIC ASPARTATE [place] [address] LAB SHIN LAB SHIN THYROID 0 AMERIC AMERIC STIMULATI HOLDING HOLDING NG HORMONE TSH BASIC 34098 LAB SHIN LAB SHIN METABOLIC 0 AMERIC AMERIC PANEL HOLDING HOLDING CALCIUM TOTAL LIPID 13181 LAB SHIN LAB SHIN PANEL 0 AMERIC [...] ARRIVA BLOOD 0 MEDICAL MEDICAL GLUCOSE MONITOR [facility] A4258 ARRIVA ARRIVA WERED 0 MEDICAL ATHLETIC EVENTS SCORER FOR LANCET EACH LANCETS A4259 ARRIVA ARRIVA PER BOX 0 MEDICAL MEDICAL OF 100 URNLS DIP 40055 [facility]INO MAGANA 0 [facility] STICK/TAB INC INC LET REAGENT AUTO MICROSCOP Y CULTURE 38281 CHINO MAGANA BACTERIAL 0 [facility] MEM [...] HE /PAD/UNDG RMNT INCONT EA GLUC BLD 51844 Kt CORDOVA, GLUC MNTR 0 MARTIN AVILA PSC CLEARED FDA SPEC HOME USE BLD GLU A4253 TUSHAR FINLEY, TEST/REAG 0 INC INC T STRIPS HOME BLD GLU MON-50 ADLT SZD T4526 NURSES NURSES DISPBL 0 REGISTRY REGISTRY INCONT & HOME & HOME PROD [facility] EA DISPBL T4535 NURSES NURSES LINER/SAKINA 0 REGISTRY REGISTRY ELD/GUARD & HOME & HOME /PAD/UNDG [facility] RMNT INCONT EA BLD GLU A4253 TUSHAR FINLEY, TEST/REAG 0 INC INC T STRIPS HOME BLD GLU MON-50 ADLT SZD T4526 NURSES NURSES DISPBL 0 REGISTRY REGISTRY INCONT & HOME & HOME PROD [facility] UNDWEAR MED EA DISPBL T4535 NURSES NURSES LINER/SAKINA 0 REGISTRY REGISTRY ELD/GUARD & HOME & HOME /PAD/UNDG [facility] RMNT INCONT EA BLD GLU A4253 TUSHAR FINLEY, TEST/REAG 0 INC INC T STRIPS HOME BLD GLU MON-50 LIPID 86581 [facility] OF LABONE OF PANEL 0 [employer] [facility] [employer] INC BASIC 58813 [facility] METABOLIC 0 [employer] PANEL CALCIUM TOTAL URINLS 92412 A Antonio CORDOVA, DIP 0 MARTIN Meraz STICK/TAB PSC LET REAGNT NON-AUTO MICRSCPY ALBUMIN 18510 A Antonio CORDOVA, URINE 0 MARTIN Meraz MICROALBU PSC MIN SEMIQUANT ITATIVE CULTURE 36760 [facility] OF BACTERIAL 0 [employer] QUANTTATI VE COLONY COUNT URINE TRANSFERA 35421 [facility] OF SE 0 [employer]anic ASPARTATE AMINO AST SGOT COLLECTIO 46887 Kt CORDOVA, N VENOUS 0 MARTIN Meraz BLOOD PSC VENIPUNCT URE HEMOGLOBI 66885 [facility] LAB[facility] OF N 0 [employer] GLYCOSYLA COLIN A1C ADLT SZD T4526 NURSES NURSES DISPBL 0 REGISTRY REGISTRY INCONT & HOME & HOME PROD [facility] MED EA DISPBL T4535 NURSES NURSES [...] REGISTRY INCONT & HOME & HOME PROD [facility] UNDWEAR MED EA BLD GLU A4253 NR HOME NR HOME TEST/REAG 9 INFUSION INFUSION T STRIPS HOME BLD GLU MON-50 LANCETS A4259 NR HOME NR HOME PER BOX 9 INFUSION INFUSION OF 100 ADLT SZD T4526 NURSES NURSES DISPBL 9 REGISTRY REGISTRY INCONT & HOME & HOME PROD [facility] UNDWEAR MED EA DISPBL T4535 NURSES NURSES LINER/SAKINA 9 REGISTRY REGISTRY ELD/GUARD & HOME & HOME /PAD/UNDG [facility] RMNT INCONT EA BLD GLU A4253 NR HOME NR HOME TEST/REAG 9 INFUSION INFUSION T STRIPS HOME BLD GLU MON-50 BLD GLU A4253 NR HOME NR HOME TEST/REAG 9 INFUSION INFUSION T STRIPS HOME BLD GLU MON-50 LANCETS A4259 NR HOME NR HOME PER BOX 9 INFUSION INFUSION OF 100 URINLS [id number] A C TASHA, DIP 9 MARTIN PORTILLO A STICK/TAB PSC LET REAGNT NON-AUTO MICRSCPY DISPBL T4535 NURSES NURSES LINER/SAKINA 9 REGISTRY REGISTRY ELD/GUARD & HOME & HOME /PAD/UNDG [facility] RMNT INCONT EA DIRECT G0154 NURSES NURSES SKILL 9 REGISTRY REGISTRY NURSE & HOME & HOME SERVICES [facility] HH/HOSPIC E EA 15 MIN BLD GLU A4253 NR HOME NR HOME TEST/REAG 9 INFUSION INFUSION T STRIPS HOME BLD GLU MON-50 DIRECT G0154 NURSES NURSES SKILL 8 REGISTRY REGISTRY NURSE & HOME & HOME SERVICES [facility] HH/HOSPIC E EA 15 MIN DISPBL T4535 NURSES NURSES LINER/SAKINA 8 REGISTRY REGISTRY ELD/GUARD & HOME & HOME /PAD/UNDG [facility] RMNT INCONT EA DISPBL T4535 NURSES NURSES LINER/SAKINA 8 REGISTRY REGISTRY ELD/GUARD & HOME & HOME /PAD/[facility] RMNT INCONT EA DIRECT G0154 NURSES NURSES SKILL 8 REGISTRY REGISTRY NURSE & HOME & HOME SERVICES [facility]/HOSPIC E EA 15 MIN LANCETS A4259 NR HOME NR HOME PER BOX 8 INFUSION INFUSION OF 100 BLD GLU A4253 NR HOME NR HOME TEST/REAG 8 INFUSION INFUSION T STRIPS HOME BLD GLU MON-50 COLLECTIO [id number] Kt DOWNS N VENOUS 8 MARTIN Alvarez BLOOD PSC VENIPUNCT URE GLUCOSE [id number] Kt DOWNS QUANTITAT 8 MARTIN Alvarez BAIRON BLOOD PSC XCPT REAGENT STRIP DIRECT G0154 NURSES NURSES SKILL 8 REGISTRY REGISTRY NURSE & HOME & HOME SERVICES [facility]OSPIC E EA 15 MIN DIRECT G0154 NURSES NURSES SKILL 8 REGISTRY REGISTRY NURSE & HOME & HOME SERVICES [facility]OSP[facility] E EA 15 MIN LANCETS A4259 NR HOME NR HOME PER BOX 8 INFUSION INFUSION OF 100 BLD GLU A4253 NR HOME NR HOME TEST/REAG 8 INFUSION INFUSION T STRIPS HOME BLD GLU MON-50 DIRECT G0154 NURSES NURSES SKILL 8 REGISTRY REGISTRY NURSE & HOME & HOME SERVICES [facility]/HOSPIC E EA 15 MIN DISPBL T4535 NURSES NURSES LINER/SAKINA 8 REGISTRY REGISTRY ELD/GUARD & HOME & HOME /PAD/UNDG [facility] RMNT INCONT EA DIRECT G0154 NURSES NURSES SKILL 8 REGISTRY REGISTRY NURSE & HOME & HOME SERVICES [facility]OSP[facility] E EA 15 MIN BLD GLU A4253 NR HOME NR HOME TEST/REAG 8 INFUSION INFUSION T STRIPS HOME BLD GLU MON-50 DIRECT G0154 NURSES NURSES SKILL 8 REGISTRY REGISTRY NURSE & HOME & HOME SERVICES [facility]OSP[facility] E EA 15 MIN DISPBL T4535 NURSES NURSES LINER/SAKINA 8 REGISTRY REGISTRY ELD/GUARD & HOME & HOME /PAD/UNDG [facility] RMNT INCONT EA DIRECT G0154 NURSES NURSES SKILL 8 REGISTRY REGISTRY NURSE & HOME & HOME SERVICES [facility]OSP[facility] E EA 15 MIN DIRECT G0154 NURSES NURSES SKILL 8 REGISTRY REGISTRY NURSE & HOME & HOME SERVICES [facility]OSP[facility] E EA 15 MIN DISPBL T4535 NURSES NURSES LINER/SAKINA 8 REGISTRY REGISTRY ELD/GUARD & HOME & HOME /PAD/UNDG [facility] RMNT INCONT EA LANCETS A4259 NR HOME NR HOME PER BOX 8 INFUSION INFUSION OF 100 BLD GLU A4253 NR HOME NR HOME TEST/REAG 8 INFUSION INFUSION T STRIPS HOME BLD GLU MON-50 DIRECT G0154 NURSES NURSES SKILL 8 REGISTRY REGISTRY NURSE & HOME & HOME SERVICES [facility] E EA 15 MIN DISPBL T4535 NURSES NURSES LINER/SAKINA 8 REGISTRY REGISTRY ELD/GUARD & HOME & HOME /PAD/[facility] RMNT INCONT EA DISPBL T4535 NURSES NURSES LINER/SAKINA 8 REGISTRY REGISTRY ELD/GUARD & HOME & HOME /PAD/[facility] RMNT INCONT EA DIRECT G0154 NURSES NURSES SKILL 8 REGISTRY REGISTRY NURSE & HOME & HOME SERVICES [facility] EA 15 MIN LANCETS A4259 NR HOME NR HOME PER BOX 8 INFUSION INFUSION OF 100 BLD GLU A4253 NR HOME NR HOME TEST/REAG 8 INFUSION INFUSION T STRIPS HOME BLD GLU MON-50 DIRECT G0154 NURSES NURSES SKILL 8 REGISTRY REGISTRY NURSE & HOME & HOME SERVICES [facility] E EA 15 MIN DIRECT G0154 NURSES NURSES SKILL 8 REGISTRY REGISTRY NURSE & HOME & HOME SERVICES [facility] E EA 15 MIN BLD GLU A4253 NR HOME NR HOME TEST/REAG 8 INFUSION INFUSION T STRIPS HOME BLD GLU MON-50 DIRECT G0154 NURSES NURSES SKILL 8 REGISTRY REGISTRY NURSE & HOME & HOME SERVICES [facility] E EA 15 MIN DISPBL T4535 NURSES NURSES LINER/SAKINA 8 REGISTRY REGISTRY ELD/GUARD & HOME & HOME /PAD/[facility] RMNT INCONT EA DIRECT G0154 NURSES NURSES SKILL 8 REGISTRY REGISTRY NURSE & HOME & HOME SERVICES [facility] EA 15 MIN DIRECT G0154 NURSES NURSES SKILL 8 REGISTRY REGISTRY NURSE & HOME & HOME SERVICES [facility] E EA 15 MIN DIRECT G0154 NURSES NURSES SKILL 8 REGISTRY REGISTRY NURSE & HOME & HOME SERVICES [facility] E EA 15 MIN DIRECT G0154 NURSES NURSES SKILL 8 REGISTRY REGISTRY NURSE & HOME & HOME SERVICES [facility] E EA 15 MIN DIRECT G0154 NURSES NURSES SKILL 8 REGISTRY REGISTRY NURSE & HOME & HOME SERVICES [facility] E EA 15 MIN DIRECT G0154 NURSES NURSES SKILL 8 REGISTRY REGISTRY NURSE & HOME & HOME SERVICES [facility] E EA 15 MIN DISPBL T4535 NURSES NURSES LINER/SAKINA 8 REGISTRY REGISTRY ELD/GUARD & HOME & HOME /PAD/[facility] RMNT INCONT EA NORMAL A4256 NR HOME [...] NURSE & HOME & HOME SERVICES [facility] E EA 15 MIN DISPBL T4535 NURSES NURSES LINER/SAKINA 8 REGISTRY REGISTRY ELD/GUARD & HOME & HOME /PAD/[facility] RMNT INCONT EA DIRECT G0154 NURSES NURSES SKILL 8 REGISTRY REGISTRY NURSE & HOME & HOME SERVICES [facility] E EA 15 MIN DIRECT G0154 NURSES NURSES SKILL 8 REGISTRY REGISTRY NURSE & HOME & HOME SERVICES [facility] E EA 15 MIN DIRECT G0154 NURSES NURSES SKILL 8 REGISTRY REGISTRY NURSE & HOME & HOME SERVICES [facility] E EA 15 MIN LANCETS A4259 NR HOME NR HOME PER BOX 8 INFUSION INFUSION OF 100 BLD GLU A4253 NR HOME NR HOME TEST/REAG 8 INFUSION INFUSION T STRIPS HOME BLD GLU MON-50 DIRECT G0154 NURSES NURSES SKILL 8 REGISTRY REGISTRY NURSE & HOME & HOME SERVICES [facility] E EA 15 MIN DIRECT G0154 NURSES NURSES SKILL 8 REGISTRY REGISTRY NURSE & HOME & HOME SERVICES [facility] E EA 15 MIN DISPBL T4535 NURSES NURSES LINER/SAKINA 8 REGISTRY REGISTRY ELD/GUARD & HOME & HOME /PAD/[facility] RMNT INCONT EA DIRECT G0154 NURSES NURSES SKILL 8 REGISTRY REGISTRY NURSE & HOME & HOME SERVICES [facility] E EA 15 MIN DIRECT G0154 NURSES NURSES SKILL 8 REGISTRY REGISTRY NURSE & HOME & HOME SERVICES [facility] E EA 15 MIN DISPBL T4535 NURSES NURSES LINER/SAKINA 8 REGISTRY REGISTRY ELD/GUARD & HOME & HOME /PAD/[facility] RMNT INCONT EA DIRECT G0154 NURSES NURSES SKILL 8 REGISTRY REGISTRY NURSE & HOME & HOME SERVICES [facility] E EA 15 MIN DIRECT G0154 NURSES NURSES SKILL 8 REGISTRY REGISTRY NURSE & HOME & HOME SERVICES [facility] E EA 15 MIN DIRECT G0154 NURSES NURSES SKILL 8 REGISTRY REGISTRY NURSE & HOME & HOME SERVICES [facility] E EA 15 MIN BLD GLU A4253 NR HOME NR HOME TEST/REAG 8 INFUSION INFUSION T STRIPS HOME BLD GLU MON-50 DISPBL T4535 NURSES NURSES LINER/SAKINA 8 REGISTRY REGISTRY ELD/GUARD & HOME & HOME /PAD/[facility] RMNT INCONT EA DIRECT G0154 NURSES NURSES SKILL 8 REGISTRY REGISTRY NURSE & HOME & HOME SERVICES [facility] E EA 15 MIN DIRECT G0154 NURSES NURSES SKILL 8 REGISTRY REGISTRY NURSE & HOME & HOME SERVICES [facility] E EA 15 MIN DIRECT G0154 NURSES NURSES SKILL 8 REGISTRY REGISTRY NURSE & HOME & HOME SERVICES [facility] E EA 15 MIN DIRECT G0154 NURSES NURSES SKILL 8 REGISTRY REGISTRY NURSE & HOME & [facility] E EA 15 MIN DIRECT G0154 NURSES NURSES SKILL 8 REGISTRY REGISTRY NURSE & HOME & HOME SERVICES [facility]/HOSP[facility] E EA 15 MIN DIRECT G0154 NURSES NURSES SKILL 8 REGISTRY REGISTRY NURSE & HOME & HOME SERVICES [facility] HH/HOSPIC E EA 15 MIN DISPBL T4535 NURSES NURSES LINER/SAKINA 8 REGISTRY REGISTRY ELD/GUARD & HOME & HOME /PAD/[facility] RMNT INCONT EA Encounters Encounter Start End Date Code Location Performer Type Date OFFICE 58650 [place] OUTPATIEN 7 7 MEDICAL T [facility] 60 SERV MINUTES [facility] [place] [facility]PITALS OFFICE 04121 [facility] OUTPATIEN 7 7 PHYSICIAN A T VISIT S GROUP 15 MINUTES [facility] - 7 7 [facility] OUTPATIEN INC [facility] - 7 7 [facility] OUTPATIEN [facility] CHINO - 7 7 [facility] EM[facility] 49424 PATI [email or web address] DEPT 7 7 PHYSICIAN VISIT S, [facility] HIGH SEVERITY& THREAT [facility] CHINO - OTHER 7 7 MEM H[facility] CHINO - OTHER 7 7 [facility] CHINO - 7 7 [facility] OUTPATIEN INC [facility] - 7 7 [facility]PATIEN INC [facility] - 7 7 [facility] OFFICE 32669 [facility] H[facility]NES OUTPATIEN 6 6 [facility] 10 MINUTES EMERGENCY 59044 [facility] 6 6 MEM [facility] DEPARTMEN [facility] T VISIT LOW/MODER SEVERITY HOSPITAL [facility] - 6 6 [facility] OUTPATIEN INC T OFFICE 12140 A Antonio MENON OUTPATIEN 6 6 MARTIN ROD T VISIT PSC 15 MINUTES EMERGENCY 25669 PATI OLSON 6 6 [facility]ICIAN [facility] HIGH/URGE NT SEVERITY OFFICE 54132 FALLIS CAROL OUTPATIEN 6 6 FERMIN RAMU T NEW 30 MINUTES OFFICE 71209 A C TASHA ELPIDIO OUTPATIEN 6 6 MARTIN VIEYRA T VISIT PSC 15 MINUTES HOSPITAL [facility] - 6 6 N OUTPATIEN COMMUNTIY T HOSPITA EMERGENCY 80712 [facility] 6 6 [facility] EMERGENCY T VISIT PHYS HIGH/URGE NT SEVERITY EMERGENCY 83947 [facility] 6 [facility]OSPITA MODERATE SEVERITY EMERGENCY 32192 [facility] 6 PHYSICIAN JEREMIAS VISIT [facility] HIGH SEVERITY& THREAT FUNJ OFFICE 09638 A Antonio RODRIGUEZ OUTPATIEN 6 6 MARTIN SMYTH T VISIT PSC 15 MINUTES OFFICE 29690 A Antonio CORDOVA ELPIDIO OUTPATIEN 6 6 MARTIN VIEYRA T VISIT PSC 25 MINUTES OFFICE 53010 A Antonio MAGALLANES OUTPATIEN 5 5 MARTIN VIEYRA T VISIT PSC 15 MINUTES OFFICE 90802 A Antonio LOWERY OUTPATIEN 4 4 MARTIN VIEYRA T VISIT PSC 15 MINUTES HOSPITAL [facility] - 4 4 [facility]PATIEN INC [facility] - 4 4 [facility] OUTPATIEN INC [facility] - 3 3 [facility] OUTPATIEN INC HOSPITAL [facility] - 3 3 [facility] OUTPATIEN INC T EMERGENCY 09758 PING [facility] 3 3 EMERGENCY [facility] T VISIT HIGH/URGE NT SEVERITY EMERGENCY 97686 [facility] 3 3 [facility] DEPARTMEN INC T VISIT LOW/MODER SEVERITY HOSPITAL [facility] - 3 3 [facility] OUTPATIEN INC T HOME NURSES HEALTH, 3 3 REGISTRY OTHER HOME [facility] HOME NURSES HEALTH, 3 3 REGISTRY OUTPATIEN & HOME HE T EMERGENCY 76363 PING ALLRED DEPT 3 3 EMERGENCY III [...] HEALTH, 3 3 REGISTRY OTHER HOME HLTHTCA [facility] CHINO - 3 3 MEM [facility] OUTPATIEN INC T HOSPITAL [facility] - 3 3 [facility] OUTPATIEN INC T EMERGENCY 70258 [facility] 3 3 MEM [facility] DEPARTMEN INC [...] 2 2 REGISTRY OTHER HOME [facility]TH[facility] OFFICE 28799 A C TASHA ELPIDIO OUTPATIEN 2 2 [...] REGISTRY OUTPATIEN & HOME HE T OFFICE 43232 A C TASHA ELPIDIO OUTPATIEN 2 2 MARTIN VIEYRA T VISIT PSC 15 MINUTES HOME NURSES HEALTH, 2 2 REGISTRY OTHER HOME [facility] HOME NURSES HEALTH, 2 2 REGISTRY OUTPATIEN & HOME HE T HOME NURSES HEALTH, 2 2 REGISTRY OTHER HOME [facility] HOME NURSES HEALTH, 2 2 REGISTRY OUTPATIEN & HOME HE T OFFICE 54954 A Antonio CORDOVA ELPIDIO OUTPATIEN 2 2 MARTIN VIEYRA T VISIT PSC 10 MINUTES HOME NURSES HEALTH, 2 2 REGISTRY OTHER HOME [facility]THTCA OFFICE 95474 A C TASHA ELPIDIO OUTPATIEN 2 2 MARTIN VIEYRA T VISIT PSC 15 MINUTES HOME NURSES HEALTH, 2 2 REGISTRY OTHER HOME [facility] CHINO - 2 2 [facility] INPATIENT [facility] EMERGENCY 33123 PING ALLRED DEPT 2 2 EMERGENCY III [...] REGISTRY OUTPATIEN & HOME HE T OFFICE 98703 Kt CORDOVA ELPIDIO OUTPATIEN 1 1 MARTIN [...] REGISTRY OUTPATIEN & HOME HE T OFFICE 59331 A C TASHA ELPIDIO OUTPATIEN 1 1 MARTIN VIEYRA T VISIT PSC 25 MINUTES HOME NURSES HEALTH, 1 1 REGISTRY OUTPATIEN & HOME HE T HOSPITAL [facility] - 0 0 [facility] OUTPATIEN INC T HOME NURSES HEALTH, 0 0 REGISTRY OUTPATIEN & HOME HE T OFFICE 92745 A C TASHA ELPIDIO OUTPATIEN 0 0 MARTIN VIEYRA T VISIT PSC 15 MINUTES HOSPITAL [facility] - 0 0 [facility] OUTPATIEN INC T HOME NURSES HEALTH, 0 0 REGISTRY OUTPATIEN & HOME HE T HOME NURSES HEALTH, 0 0 REGISTRY OUTPATIEN & HOME HE T OFFICE 58858 A C OUTPATIEN 0 0 MARTIN VIEYRA T VISIT PSC 25 MINUTES HOME NURSES HEALTH, 0 0 REGISTRY OUTPATIEN & HOME HE T HOSPITAL [facility] - 0 0 [facility] OUTPATIEN INC T HOME NURSES HEALTH, 0 0 REGISTRY OUTPATIEN & HOME HE T HOME NURSES HEALTH, 0 0 REGISTRY OUTPATIEN & HOME HE T OFFICE 63147 A C TASHA, OUTPATIEN 0 0 MARTIN Meraz T VISIT PSC 15 MINUTES HOME NURSES HEALTH, 0 0 REGISTRY OUTPATIEN & HOME T HEALH HOME NURSES HEALTH, 0 0 REGISTRY OUTPATIEN & HOME T HEALH OFFICE 64633 ELIJAH STEEL 0 0 MARTIN Meraz T [...] REGISTRY OUTPATIEN & HOME T HEALH OFFICE 08035 ELIJAH STEEL 9 9 MARTIN Heard VISIT PSC 15 MINUTES HOME NURSES HEALTH, 9 9 REGISTRY OUTPATIEN & HOME T HEALH HOME NURSES HEALTH, 8 8 REGISTRY OUTPATIEN & HOME T HEALH OFFICE 30423 Kt DOWNS 8 8 MARTIN Heard VISIT PSC 15 MINUTES HOME NURSES HEALTH, 8 8 REGISTRY OUTPATIEN & HOME T HEALH HOME NURSES HEALTH, 8 8 REGISTRY OUTPATIEN & HOME T HEALH HOME NURSES HEALTH, 8 8 REGISTRY OUTPATIEN & HOME T HEALH OFFICE 05903 Kt DOWNS OUTPATIPAUL 8 8 MARTIN Heard [...] REGISTRY OUTPATIEN & HOME T HEALH OFFICE 87027 tK DOWNS 8 8 MARTIN Heard VISIT PSC 25 MINUTES HOME NURSES HEALTH, 8 8 REGISTRY OUTPATIEN & HOME T HEALH
--- OUTSIDE RECORDS SUMMARY | 2017-04-26 00:47 | External Medical Summary Rpt | CCD ---
Demographics Preferred Language Montserratian Marital Status Unknown Synagogue Affiliation Unknown Race Unknown Ethnic Group Unknown Author Author , [facility] Organization [facility] Address Unknown Phone Immunization Unable to retrieve immunization data due to connection failure with Immunization Registry. Please try again later.
--- OUTSIDE RECORDS SUMMARY | 2017-04-26 00:47 | External Medical Summary Rpt | CCD ---
Demographics Preferred Language Marshallese Marital Status Unknown Synagogue Affiliation Unknown Race Unknown Ethnic Group Unknown Author Author , [facility] Organization [facility] Address Unknown Phone Immunization Unable to retrieve immunization data due to connection failure with Immunization Registry. Please try again later.
--- OUTSIDE RECORDS SUMMARY | 2017-04-26 00:48 | External Medical Summary Rpt ---
Author Author [facility] Carter, [employer] Organization [employer] Address Unknown Phone Unavailable Results Glucose [Mass/volume] in Capillary blood by Glucometer Observa Value Referen Units Interpr Notes Date tion ce etation Range Glucose 70 - 110 mg/dl High No Feb 18 [Mass/vol informati 2016 ume] in on in 12:20 PM Capillary source blood by data Glucomete r Urea nitrogen [Mass/volume] in Serum or Plasma Observa Value Referen Units Interpr Notes Date tion ce etation Range Urea 7 - 18 mg/dL High No Feb 18 nitrogen informati 2016 9:16 [Mass/vol on in AM ume] in source Serum or data Plasma CREATININE Observa Value Referen Units Interpr Notes Date tion ce etation Range Creatinin 0.55 - mg/dL High No Feb 18 e 1.02 informati 2016 9:16 [Mass/vol on in AM ume] in source Serum or data Plasma Estimated 59- ML/MIN Low REFERENCE Feb 18 RANGE: 2016 9:16 glomerula >60 AM r ML/MIN/1. filtratio 73 SQUARE n rate METERSIf (GF this patient is -A merican, then multiply theresult by 1.210. PT & aPTT panel in Platelet poor plasma by Coagulation assay Observa Value Referen Units Interpr Notes Date tion ce etation Range INR in 0.9 - 1.1 No Normal INDICATIO Feb 18 Blood by informati N 2016 9:16 Coagulati on in AM on assay source INR data RANGETHER APY FOR DVT, PE, ATRIAL FIB; 2.0 - 3.0PROPHY LAXIS FOR VTETHERAP Y FOR MECHANICA L HEART 2.5 - 3.5VALVE; PREVENTIO N OF SYSTEMICE MBOLISM SECONDARY TO AMI Prothromb 9.4 - SECONDS Normal No Feb 18 in time 11.8 informati 2016 9:16 (PT) in on in AM Platelet source poor data plasma by Coagulati on assay Activated 23.6 - SECONDS Normal No Feb 18 partial 34.0 informati 2016 9:16 thrombpla on in AM stin time source (aPTT) data in Platelet poor plasma by Coagulati on assay CBC W Auto Differential panel in Blood Observa Value Referen Units Interpr Notes Date tion ce etation Range Basophils 0 - 0.2 K/MM3 Normal No Feb 18 informati 2016 9:16 [#/volume on in AM ] in source Blood by data Automated count Basophils 0.1 - 2.0 % Normal No Feb 18 / informati 2016 9:16 leukocyte on in AM s in source Blood by data Automated count Eosinophi 0.0 - 0.4 K/mm3 Normal No Feb 18 ls informati 2016 9:16 [#/volume on in AM ] in source Blood by data Automated count Eosinophi 0.1 - % Normal No Feb 18 ls/100 12.0 informati 2016 9:16 leukocyte on in AM s in source Blood by data Automated count Granulocy 1.8 - 7.8 K/mm3 Normal No Feb 18 lidia informati 2016 9:16 [#/volume on in AM ] in source Blood by data Automated count Granulocy 37.0 - % Normal No Feb 18 lidia/100 80.0 informati 2016 9:16 leukocyte on in AM s in source Blood by data Automated count Hematocri 37.0 - % Normal No Feb 18 t [Volume 47.0 informati 2016 9:16 on in AM Fraction] source of Blood data Hemoglobi 12.2 - g/dL Normal No Feb 18 n 16.2 informati 2016 9:16 [Mass/vol on in AM ume] in source Blood data Lymphocyt 0.7 - 4.5 K/mm3 Normal No Feb 18 es informati 2016 9:16 [#/volume on in AM ] in source Unspecifi data ed specimen by Automated count Lymphocyt 10 - 50.0 % Normal No Feb 18 es informati 2016 9:16 [#/volume on in AM ] in source Unspecifi data ed specimen by Automated count Erythrocy 27 - 31.2 pg High No Feb 18 te mean informati 2016 9:16 corpuscul on in AM ar source hemoglobi data n [Entitic mass] Erythrocy 31.8 - g/dl Normal No Feb 18 te mean 35.4 informati 2016 9:16 corpuscul on in AM ar source hemoglobi data n concentra tion [Mass/vol ume] by Automated count Erythrocy 82.2 - fl Normal No Feb 18 te mean 97.8 informati 2016 9:16 corpuscul on in AM ar volume source [Entitic data volume] by Automated count Monocytes 0.1 - 1.0 K/mm3 Normal No Feb 18 informati 2016 9:16 [#/volume on in AM ] in source Blood by data Automated count Monocytes 1.7 - 9.3 % Normal No Feb 18 /100 informati 2017 9:16 leukocyte on in AM s in source Blood by data Automated count Platelet 7.4 - fl Normal No Feb 18 mean 10.4 informati 2016 9:16 volume on in AM [Entitic source volume] data in Blood by Automated count Platelets 142 - 424 K/mm3 Normal No Feb 18 informati 2016 9:16 [#/volume on in AM ] in source Blood data Erythrocy 4.2 - 5.4 M/mm3 Low No Feb 18 lidia informati 2016 9:16 [#/volume on in AM ] in source Amniotic data fluid Erythrocy 11.5 - % Normal No Feb 18 te 17.5 informati 2016 9:16 distribut on in AM ion width source [Entitic data volume] by Automated count Leukocyte 4.8 - K/MM3 Normal No Feb 18 s 10.8 informati 2016 9:16 [#/volume on in AM ] in source Blood data Urea nitrogen [Mass/volume] in Serum or Plasma Observa Value Referen Units Interpr Notes Date tion ce etation Range Urea 7 - 18 mg/dL High No Jan 28 nitrogen informati 2016 9:26 [Mass/vol on in AM ume] in source Serum or data Plasma CREATININE Observa Value Referen Units Interpr Notes Date tion ce etation Range Creatinin 0.55 - mg/dL Normal No Jan 28 e 1.02 informati 2016 9:26 [Mass/vol on in AM ume] in source Serum or data Plasma Estimated 59- ML/MIN No REFERENCE Jan 28 informati RANGE: 2016 9:26 glomerula on in >60 AM r source ML/MIN/1. filtratio data 73 SQUARE n rate METERSIf (GF this patient is -A merican, then multiply theresult by 1.210. CBC W Auto Differential panel in Blood Observa Value Referen Units Interpr Notes Date tion ce etation Range Basophils 0 - 0.2 K/MM3 Normal No Jan 15 inform2016 5:07 [#/volume on in PM ] in source Blood by data Automated count Basophils 0.1 - 2.0 % Normal No Jan 15 /100 informati 2016 5:07 leukocyte on in PM s in source Blood by data Automated count Eosinophi 0.0 - 0.4 K/mm3 Normal No Jan 15 ls informati 2016 5:07 [#/volume on in PM ] in source Blood by data Automated count Eosinophi 0.1 - % Normal No Jan 15 ls/100 12.0 informati 2016 5:07 leukocyte on in PM s in source Blood by data Automated count Granulocy 1.8 - 7.8 K/mm3 Normal No Jan 15 lidia informati 2016 5:07 [#/volume on in PM ] in source Blood by data Automated count Granulocy 37.0 - % Normal No Jan 15 lidia/100 80.0 informati 2016 5:07 leukocyte on in PM s in source Blood by data Automated count Hematocri 37.0 - % Normal No Jan 15 t [Volume 47.0 informati 2016 5:07 on in PM Fraction] source of Blood data Hemoglobi 12.2 - g/dL No No Jan 15 n 16.2 informati informati 2016 5:07 [Mass/vol on in on in PM ume] in source source Blood data data Lymphocyt 0.7 - 4.5 K/mm3 Normal No Jan 15 es 2016 5:07 [#/volume on in PM ] in source Unspecifi data ed specimen by Automated count Lymphocyt 10 - 50.0 % Normal No Jan 15 es ati 2016 5:07 [#/volume on in PM ] in source Unspecifi data ed specimen by Automated count Erythrocy 27 - 31.2 pg Normal No Jan 15 te mean informati 2016 5:07 corpuscul on in PM ar source hemoglobi data n [Entitic mass] Erythrocy 31.8 - g/dl Normal No Jan 15 te mean 35.4 informati 2016 5:07 corpuscul on in PM ar source hemoglobi data n concentra tion [Mass/vol ume] by Automated count Erythrocy 82.2 - fl Normal No Jan 15 te mean 97.8 informati 2016 5:07 corpuscul on in PM ar volume source [Entitic data volume] by Automated count Monocytes 0.1 - 1.0 K/mm3 Normal No Jan 152016 5:07 [#/volume on in PM ] in source Blood by data Automated count Monocytes 1.7 - 9.3 % Normal No Jan 14 /100 inform2016 5:07 leukocyte on in PM s in source Blood by data Automated count Platelet 7.4 - fl Normal No Jan 15 mean 10.4 2016 5:07 volume on in PM [Entitic source volume] data in Blood by Automated count Platelets 142 - 424 K/mm3 Normal No Jan 15 inform2016 5:07 [#/volume on in PM ] in source Blood data Erythrocy 4.2 - 5.4 M/mm3 Low No Jan 15 lidia inform2016 5:07 [#/volume on in PM ] in source Amniotic data fluid Erythrocy 11.5 - % Normal No Jan 15 te 17.5 inform2016 5:07 distribut on in PM ion width source [Entitic data volume] by Automated count Leukocyte 4.8 - K/MM3 Normal No Jan 15 s 10.8 2016 5:07 [#/volume on in PM ] in source Blood data Lactate [Moles/volume] in Blood Observa Value Referen Units Interpr Notes Date tion ce etation Range Lactate 0.4 - 2.0 mmol/L Normal No Jan 15 [Moles/vo 2016 5:07 lume] in on in PM Blood source data Basic metabolic panel in Blood Observa Value Referen Units Interpr Notes Date tion ce etation Range Urea 7 - 18 mg/dL High No November 16 nitrogen informati 2016 3:36 [Mass/vol on in PM ume] in source Serum or data Plasma Calcium 8.5 - mg/dL Normal No November 16 [Mass/vol 10.1 informati 2016 3:36 ume] in on in PM Serum or source Plasma data Chloride 98 - 107 mmoL/L Normal No November 16 [Moles/vo informati 2016 3:36 lume] in on in PM Serum or source Plasma data Carbon 21.0 - mmoL/L Normal No November 16 dioxide, 32.0 informati 2016 3:36 total on in PM [Moles/vo source lume] in data Serum or Plasma Creatinin 0.55 - mg/dL Normal No November 16 e 1.02 informati 2016 3:36 [Mass/vol on in PM ume] in source Serum or data Plasma Estimated 59- ML/MIN Low REFERENCE November 16 RANGE: 2017 3:36 glomerula >60 PM r ML/MIN/1. filtratio 73 SQUARE n rate METERSIf (GF this patient is -A merican, then multiply theresult by 1.210. Glucose 74 - 106 mg/dL High No November 16 [Mass/vol informati 2016 3:36 ume] in on in PM Serum or source Plasma data Potassium 3.5 - 5.1 mmoL/L Normal No November 16 informati 2016 3:36 [Moles/vo on in PM lume] in source Serum or data Plasma Sodium 136 - 145 mmoL/L Normal No November 16 [Moles/vo informati 2017 3:36 lume] in on in PM Serum or source Plasma data
[2017-04-26 00:49] LABS: HEMOGLOBIN 12.5 g/dL (12.2-16.2); LYMPH # 2.8 K/mm3 (0.7-4.5); LYMPH % 29.3 % (10-50.0)
[2017-04-26 01:13] LABS: URINE BILIRUBIN - DIPSTICK NEGATIVE (NEG); URINE BLOOD 1+ (NEG)
[2017-04-26 01:16] LABS: URINE SQUAMOUS CELLS 20-50 #/hpf (0-5)
[2017-04-26 03:41] VITALS: BP 173/52
--- NOTE | 2017-04-28 00:07 | RADIOLOGY REPORT PS360 ---
CT CHEST W/O CONTRAST HISTORY: ABNORMAL PREV CT CHEST / RECTAL BLEEDING Patient Age: 82 years: Female Ordering Physician: Bishop Mitchell MD TECHNIQUE: COMPARISON : FINDINGS Multiple small noncalcified pulmonary nodules are seen bilaterally. Most of these appear stable. Date of the measured similar in size with no significant change. If anything is smaller but they have certainly for the most part show no progression. Right lung On the right where the more prominent areas is a pleural-based small nodular mass density at the medial aspect of the RML which measures 25 mm AP x 13 mm. . Axial image 61 RML just ~ 7 mm somewhat linear appearing density which May reflect postinflammatory scarring on sagittal image 37 rather than nodule.. RML 6.3 mm nodule axial image 55. There is also a partially calcified nodule pleural-based nodule at the right lung at apex appears slightly larger axial view but overall appears stable in size when reviewed in the multiple projections. No significant change Left chest The most prominent lesion is dome shaped pleural-based density at the left lung base. Overall stable size when reviewed in multiple projections; even though it measures incremental smaller on today's axial images axial image. Axial image 61 2 it measures up to 3.5 cm x x 3.5 cm in its base X1 0.9 cm thickness Left midlung the superior segment LLL small 6.3 mm nodule. Only area that is slightly more evident is a pleural-based density at the lateral reflection of the major fissure left mid to lower lung field. Axial image 43. This [id number] mm transverse 8.7 mm AP and is somewhat wispy. Could reflect inflammatory focus rather than significant nodule.. Warrants follow-up again in 3-4 months.. Right lobe of thyroid is enlarged with multiple nodules. Larger nodule at least 15 mm mm AP with smaller 1 cm nodule posterior right lobe; Mediastinum. No mediastinal adenopathy or mass. No hilar adenopathy. Diffuse atherosclerotic calcification aortic arch which extends to the origin of great vessels. 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 Can be followed Cardiomegaly with extensive coronary artery calcifications most evident left main, LAD, as well as diagonals and circumflex. These uppermost abdomen are limited unremarkable on today's study upper normal thickness distal esophagus. Prominent degenerative changes throughout spine including spurring yielding spinal stenosis at levels of lower C-spine. IMPRESSION 1. Multiple noncalcified pulmonary nodules. Largest pleural-based mass is seen at the left lung measuring 3.5 cm diameter at its pleural base.. Overall these these multiple round nodules appear stable.. 2...* The Only area that is shown slight progression is a 1.2 cm x 1 cm irregular density, of different character, along the reflection of the major fissure lateral aspect left lung. This conceivably could reflect inflammatory focus- but does warrant follow-up CT chest in 3 months to further evaluate. 3. Underlying chronic lung changes, emphysematous changes No significant hilar no mediastinal adenopathy 4. Prominent coronary artery disease. 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
--- NOTE | 2017-04-28 00:36 | RADIOLOGY REPORT PS360 ---
CT ABD PELVIS W/O CONTRAST HISTORY: ABNORMAL PREV CT CHEST / RECTAL BLEEDING . Hysterectomy. Appendectomy. Cholecystectomy. Patient Age: 82 years: Female Ordering Physician: Bishop Mitchell MD TECHNIQUE: Helical CT scanning performed the abdomen pelvis with no oral nor IV contrast. Sagittal coronal reconstruction CT workstation. COMPARISON :Previous CT chest & CT abdomen pelvis 01/15/2017. FINDINGS Lower thorax. Large dome shape density at the periphery left lung base measuring 3.4 cm cm diameter at its base. X 2 cm height This is seen in January and fairly stable. Pleural-based density medial aspect right middle lobe 2.5 x 12 mm appears similar as well. Scattered other Other nodular densities discussed in CT chest report from today There is mild pleural thickening posterior lung bases at posterior sulcus. Abdomen/pelvis lack of oral and IV contrast decreases sensitivity Liver: There are some ill-defined low-density. But these appear similar to the Saadia exam. 12 mm ovoid low-density areas could be a cyst & measures just less than 4 mm. Axial image 77. Also a small area at the medial right lobe liver likely cyst measuring up to 1 cm. Finally Question some vague low-density about the kaley hepatis.-Suggest subsequent follow-up CT abdomen using IV contrast or consider ultrasound to survey this region alternatively. Gallbladder is been surgically removed. There is some streak artifact from the clips here. . Pancreas unremarkable on this noncontrast study minimal calcification posterior pancreas Spleen unremarkable.. Small stable low-density nodule left adrenal compatible with benign nonfunctioning adenoma. This measures up to 18 mm x 9 mm size Kidneys no urinary tract obstruction nor calculi. Prominent benign cyst anterior right kidney measuring 3.7 cm. No retroperitoneal nor mesenteric adenopathy. Diffuse constipation aorta and iliac vessels. Pelvis. Bladder appears satisfactory. No pelvic mass. Low-lying cecum. No appendix or findings right lower quadrant or pelvis. No pelvic mass. GI TRACT. Stomach moderately distended Prominent food filled stomach . Prominent stool at rectum with generous stool and gas throughout the remainder of colon no bowel dilatation or obstruction. Particular note generous gas of the transverse colon but no significant bowel distention. Small bowel unremarkable Multiple very tiny barely appreciable incisional hernias are seen likely old midline incision . IMPRESSION: .------ 1 No acute findings abdomen pelvis. . No urinary tract calculi nor obstruction. No bowel obstruction or significant dilatation . Only note Prominent, stool rectum with generous stool and gas throughout colon... . No evidence of mass lesion or adenopathy abdomen or pelvis. 2. Nodular densities lung bases bilaterally again noted similar to January 2017. These are delineated on CT chest report 3. Stable Benign right renal cyst. 4. Stable nonfunctioning benign left adrenal adenoma. 5. Small stable hepatic cysts. Would only question of some vague low density towards kaley hepatis on today's study. May may reflect normal structures. However suggest CT with contrast subsequent follow-up, or ultrasound survey abdomen may be helpful to further exclude any significant findings liver
== END 2017-04-26 03:42 | disposition home or self-care (01) ==
LOC: ER 23:42
PROVIDERS: Emergency Medicine
DX: K92.2 Gastrointestinal hemorrhage, unspecified (principal); E11.65 Type 2 diabetes mellitus with hyperglycemia; Z79.4 Long term (current) use of insulin; Z79.82 Long term (current) use of aspirin; I10 Essential (primary) hypertension; E78.5 Hyperlipidemia, unspecified; J44.9 Chronic obstructive pulmonary disease, unspecified; Z87.891 Personal history of nicotine dependence